=== PATIENT | female | born 1950 | race Caucasian/White ===

== ENCOUNTER 2019-07-22 16:34 | Observation (INO) | payer MEDICARE, SELFPAY ==
[~2019-07-22] VITALS: Ht 152.4 cm; Wt 51.0 kg
[2019-07-22] MEDS ORDERED: HYDR-643 PO (17:09)
[2019-07-22] MEDS ORDERED: CYCL10TA PO (17:09)
[2019-07-22] MEDS ORDERED: PROM25TA12 PO (17:09)
[2019-07-22] MEDS ORDERED: FLUT44IN INH (17:09)
[2019-07-22] MEDS ORDERED: MECL-86 PO (17:09)
[2019-07-22 17:39] LABS: HEMATOCRIT 43.7 % (36.0-47.0); HEMOGLOBIN 13.8 g/dl (12.0-15.5); MEAN CORPUSCULAR HEMOGLOBIN 27.7 pg (27.0-33.0); MEAN CORPUSCULAR HGB CONC 31.6 g/dl (32.0-36.5); MEAN CORPUSCULAR VOLUME 87.6 fl (80.0-96.0); PLATELET COUNT, AUTOMATED 199 10^3/uL (150-450); RED BLOOD COUNT 4.99 10^6/uL (4.00-5.40)
--- NOTE | 2019-07-22 18:00 | REPVR ---
PROCEDURE INFORMATION: Exam: CT Head Without Contrast Exam date and time: 07/22/2019 5:11 PM Age: 68 years old Clinical history: Altered mental status/memory loss; Confusion or disorientation; Additional info: Altered loc TECHNIQUE: Imaging protocol: Computed tomography of the head without contrast. Radiation optimization: All CT scans at this facility use at least one of these dose optimization techniques: automated exposure control; mA and/or kV adjustment per patient size (includes targeted exams where dose is matched to clinical indication); or iterative reconstruction. COMPARISON: No relevant prior studies available. FINDINGS: Brain: Pond-white differentiation appears preserved. There is a large bubble of air within the right globe and this may be secondary to previous surgery. There is no evidence of mass effect. Ventricles: The ventricles are normal in size. Bones/joints: There is no evidence of fracture. Sinuses: Clear paranasal sinuses. Mastoid air cells: Clear mastoid air cells. Soft tissues: Unremarkable. IMPRESSION: 1. Normal appearing CT scan of the brain. 2. Prominent bubble of air in the right globe which may be secondary to previous surgery. Electronically signed by: Adan Trevizo On 07/22/2019 18:00:41 PM
[2019-07-22 18:15] LABS: ACETAMINOPHEN LEVEL < 2.0 UG/ML (10.0-30.0); ALBUMIN 4.4 GM/DL (3.2-5.2); ALT/SGPT 24 U/L (12-78); BILIRUBIN,DIRECT 0.2 MG/DL (0.0-0.2); BILIRUBIN,TOTAL 0.6 MG/DL (0.2-1.0); BLOOD UREA NITROGEN 21 MG/DL (7-18); CALCIUM LEVEL 9.7 MG/DL (8.8-10.2); CARBON DIOXIDE LEVEL 20 MEQ/L (21-32); CHLORIDE LEVEL 104 MEQ/L (98-107); CREATININE FOR GFR 0.84 MG/DL (0.55-1.30); ETHYL ALCOHOL (ETHANOL) < 0.003 % (0.000-0.010); GLOMERULAR FILTRATION RATE > 60.0 (>45); GLUCOSE, FASTING 91 MG/DL (70-100); POTASSIUM SERUM 3.6 MEQ/L (3.5-5.1); SODIUM LEVEL 140 MEQ/L (136-145); TOTAL PROTEIN 8.3 GM/DL (6.4-8.2)
[2019-07-22] MEDS ORDERED: LIDOCAINE 2% 5ML JELLY UROJET TOP ONE (18:45)
[2019-07-22] MEDS ORDERED: NITROFURANTOIN (MACROBID) 100 MG CAP PO ONE (19:45)
[2019-07-22 20:03] LABS: AMPHETAMINES LEVEL URINE NEGATIVE (NEGATIVE); BARBITURATES URINE NEGATIVE (NEGATIVE); BENZODIAZEPINES URINE NEGATIVE (NEGATIVE); CANNABINOIDS URINE NEGATIVE (NEGATIVE); COCAINE METABOLITE URINE NEGATIVE (NEGATIVE); METHADONE URINE NEGATIVE (NEGATIVE); OPIATES URINE NEGATIVE (NEGATIVE); PHENCYCLIDINE URINE NEGATIVE (NEGATIVE)
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
[2019-07-23] MEDS ORDERED: ACETAMINOPHEN TAB 650MG DOSE (2X325MG) PO PRN (01:45)
[2019-07-23] MEDS ORDERED: PATIENT COMMENTS (01:54)
[2019-07-23] MEDS ORDERED: FLUT22IN INH (02:56)
[2019-07-23 03:00] VITALS: BP 154/72
[2019-07-23 05:34] VITALS: BP 164/84
[2019-07-23] MEDS: LevoFLOXacin 500 MG TABLET PO SCH ×2 (07:30→09:01)
--- NOTE | 2019-07-23 07:42 | REP ---
AP PORTABLE CHEST: 07/22/2019. CLINICAL HISTORY: Altered level of consciousness FINDINGS: No prior studies. The patient's mandible obscures the right apex and a portion of the left medial upper lung zone. Lungs are hypoinflated. Heart size not enlarged for this degree of inflation. There is some pulmonary artery hypertension. No gross infiltrate, effusion or edema. Bones are demineralized. IMPRESSION: 1. Hypoinflated chest without infiltrate, effusion or low edema. No gross cardiomegaly. 2. Right apex obscured by the patient's mandible. Bones severely demineralized. Electronically Signed by Terrence Lino MD 07/23/2019 07:49 A
[2019-07-23] MEDS ORDERED: FLUTICASONE HFA 220 MCG 12 GM INHALER (FLOVENT) INH SCH (09:00)
[2019-07-23] MEDS: ENOXAPARIN 40 MG/0.4 ML SYRINGE (J1650) SC SCH ×2 (09:00→09:01)
[2019-07-23] MEDS ORDERED: haloperidoL 5 MG TAB PO STA (11:36)
[2019-07-23] MEDS ORDERED: diphenhydrAMINE 25 MG CAP PO ONE (11:45)
[2019-07-23] MEDS ORDERED: LORazepam 1 MG TAB PO ONE (11:45)
[2019-07-23] MEDS ORDERED: HALOPERIDOL 5 MG/ML VIAL (J1630) IM PRN (12:30)
[2019-07-23] MEDS ORDERED: HALOPERIDOL 5 MG/ML VIAL (J1630) As Ordered ONE (12:31)
[2019-07-23] MEDS ORDERED: diphenhydrAMINE INJ 50MG/ML VIAL (J1200) IM PRN (13:00)
[2019-07-23] MEDS ORDERED: LORazepam 2 MG/ML VIAL (J2060) IM PRN (13:00)
--- NOTE | 2019-07-23 13:08 | MHCRPDOC ---
[facility] Consultation Consultation New Patient Betzaida Ayers MRN: N/A Date of : N/A Date of Service: 07/23/2019 Chief Complaint Consultation for bizarre behavior. History of Present Illness The patient, a 68-year-old woman with a reported history of a psychotic disorder, presents to [facility] initially admitted to medicine due to weakness. She has been noted by EMS to be walking around outside and acting bizarrely. The patient had been fairly guarded and did not answer any questions and appeared to continue to act very bizarre reporting various visual and auditory hallucinations and delusional behavior. When I attempted to meet with the patient for consultation she was in the bathroom with her head hanging down bizarrely trying to "get the poison out." She would not respond to any of my questions, continued to wander around bizarrely attempting to jump out of windows. Review Of Systems The patient unable to contribute any history due to her severe mental status problems. Past Psychiatric History Reportedly has a history of a psychiatric disorder in [place], but unclear, no records. Allergies Please see below. Family Psychiatric History No records. Patient unable to contribute. Social History The patient recently moved here from [place] recently. Patient has a daughter in the local area. Substance Abuse History Urinary tox appeared negative. Medical History Reportedly has history of asthma and seizure disorder. Mental Status Examination General: Poor hygiene Speech: Mute Thought processes: Unclear MSK: Smooth and coordinated gait, no signs of tremors or involuntary orofacial movements Thought content: Paranoid Abstract reasoning, and computation: Impaired Description of associations: Impaired Description of abnormal or psychotic thoughts: Denies any suicidal or homicidal ideation. Denies any auditory or visual hallucinations. Does not appear to be responding to internal stimuli. Does not appear to be endorsing any bizarre or paranoid ideation. Judgment: Impaired Insight: Impaired Orientation: Unclear Cognition: Appears to respond to my presence Recent and remote memory: Unclear Attention span and concentration: Impaired secondary to thought process Fund of knowledge: Adequate Mood: "poisoned" Affect: Flat with little reactivity Diagnoses Unspecified psychotic disorder. Assessment and Plan Unspecified psychotic disorder: Recommend admission 939 inpatient status. Continue on 1:1 sitter until presents to inpatient unit. Disposition Needs admission to inpatient after medically cleared. Time Spent 30 minutes. Tuesday Vital Signs Vital Signs Date Time Temp Pulse Resp B/P (MAP) Pulse Ox O2 Delivery O2 Flow Rate FiO2 07/23/19 05:34 98.0 104 16 164/84 (110) 97 Room Air Laboratory Data 24H Labs Laboratory Tests 2 07/22/19 17:28: Nucleated Red Blood Cells % (auto) 0.0, Anion Gap 16, Glomerular Filtration Rate > 60.0, Calcium Level 9.7, Total Bilirubin 0.6, Direct Bilirubin 0.2, Aspartate Amino Transf (AST/SGOT) 21, Alanine Aminotransferase (ALT/SGPT) 24, Alkaline Phosphatase 75, Total Protein 8.3H, Albumin 4.4, Albumin/Globulin Ratio 1.13, Thyroid Stimulating Hormone (TSH) 2.650, Salicylates Level 2.0L, Acetaminophen Level < 2.0L, Ethyl Alcohol Level < 0.003 07/22/19 19:18: Urine Color YELLOW, Urine Appearance HAZY, Urine pH 5.0, Urine Specific [place] 1.023, Urine Protein 1+H, Urine Glucose (UA) NEGATIVE, Urine Ketones 2+H, Urine Blood 1+H, Urine Nitrite NEGATIVE, Urine Bilirubin NEGATIVE, Urine Urobilinogen 0.2, Urine Leukocyte Esterase 1+H, Urine WBC (Auto) 17H, Urine RBC (Auto) 3, Urine Hyaline Casts (Auto) 6, Urine Bacteria (Auto) NEGATIVE, Urine Squamous Epithelial Cells 0, Urine Mucus (Auto) SMALL, Urine Sperm (Auto) , Urine Opiates Screen NEGATIVE, Urine Methadone Screen NEGATIVE, Urine Barbiturates Screen NEGATIVE, Urine Phencyclidine Screen NEGATIVE, Urine Amphetamines Screen NEGATIVE, Urine Benzodiazepines Screen NEGATIVE, Urine Cocaine Metabolite Screen NEGATIVE, Urine Cannabinoids Screen NEGATIVE 07/23/19 07:52: Vitamin B12 Level > 2000H Home Medications Current Medications Current Medications Medications (Trade) Dose Ordered Sig/Dario Route PRN Reason Start Time Stop Time Status Last Admin Dose Admin Acetaminophen (Tylenol Tab) 650 mg Q4H PRN PO PAIN OR FEVER 07/23/19 01:45 Diphenhydramine HCl (Benadryl) 25 mg Q6HP PRN IM AGITATION 07/23/19 13:00 Enoxaparin Sodium (Lovenox) 40 mg DAILY SC 07/23/19 09:00 Fluticasone Propionate (Flovent Hfa 220mcg) 2 puff BID INH 07/23/19 09:00 Haloperidol (Haldol) 5 mg Q6HP PRN IM AGITATION 07/23/19 12:30 07/23/19 12:38 Haloperidol (Haldol) 10 mg STAT STAT PO 07/23/19 11:27 07/23/19 11:28 Cancel Haloperidol (Haldol) 10 mg STAT STAT PO 07/23/19 11:36 07/23/19 11:37 DC Home Med (Med Rec Complete!) ASDIRECTED XX 07/23/19 02:00 07/23/19 01:58 DC Levofloxacin (Levaquin) 500 mg DAILY@06 PO 07/23/19 07:30 Lorazepam (Ativan) 1 mg Q4HP PRN IM AGITATION 07/23/19 13:00 Scheduled PRN Cyclobenzaprine HCl (Cyclobenzaprine HCl) 10 Mg Tablet, 10 MG PO Q8H PRN for PAIN, (Reported) Fluticasone Propionate (Flovent Hfa) 220 Mcg/Act Aer.w.adap, 2 PUFF INH BID PRN for SOB/WHEEZING, (Reported) Hydroxyzine HCl (Hydroxyzine HCl) 10 Mg Tablet, 10 MG PO TID PRN for ANXIETY, (Reported) Meclizine HCl (Meclizine HCl) 25 Mg Tablet, 25 MG PO TID PRN for dizziness, (Reported) Promethazine HCl (Promethazine HCl) 25 Mg Tablet, 25 MG PO Q6H PRN for nausea/vomiting, (Reported) Miscellaneous Medications [Patient Comments] , (Reported) PATIENT IS AWAKE BUT NOT RESPONDING TO QUESTIONS. UNABLE TO OBTAIN ANY INFORMATION ON MEDICATION HISTORY Allergies Coded Allergies: Unobtainable (Unverified , 07/22/19) pt unable to answer MIKE DE LA FUENTE DO Jul 23, 2019 13:08
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
== END 2019-07-23 16:10 ==
LOC: EDBD 16:34 → M ED 16:34 → M ED INP 16:35 → M MS5PR 07-23 02:40
PROVIDERS: ADMIT Internal Medicine; ATTEND Internal Medicine
DX: G93.41 Metabolic encephalopathy (principal); F29 Unspecified psychosis not due to a substance or known physiological condition; R44.1 Visual hallucinations; R44.0 Auditory hallucinations; J45.909 Unspecified asthma, uncomplicated; N39.0 Urinary tract infection, site not specified; Z79.899 Other long term (current) drug therapy

== ENCOUNTER 2019-07-23 14:09 | Inpatient (IN) | payer MEDICARE, OTHER ==
[~2019-07-23 14:09] MED LIST: CYCL10TA PO; FLUT22IN INH; FLUT44IN INH; HYDR-643 PO; MECL-86 PO; PATIENT COMMENTS; PROM25TA12 PO
[2019-07-23] MEDS ORDERED: OLANZapine 5 MG TAB PO PRN (16:30)
[2019-07-23] MEDS ORDERED: MOM 30ML SUSPENSION UDC PO PRN (16:30)
[2019-07-23] MEDS ORDERED: MAALOX 30 ML SUSP *UDC PO PRN (16:30)
[2019-07-23] MEDS ORDERED: traZODone 50 MG TAB PO PRN (16:30)
[2019-07-24 06:32] VITALS: BP 133/68
[2019-07-24] MEDS ORDERED: hydrOXYzine 10 MG TAB PO PRN (11:00)
[2019-07-24] MEDS: IBUPROFEN 400 MG TAB PO PRN (11:12)
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
[2019-07-24] MEDS: MECLIZINE 25 MG TABLET PO PRN ×2 (11:22→20:38)
--- NOTE | 2019-07-24 13:34 | HPEPDOC ---
General Date of Admission Jul 23, 2019 at 16:25 Date of Service: Jul 24, 2019 Attending Physician: LEEANN SMITH MD Chief Complaint The patient is a 68-year-old female admitted with a reason for visit of Psychotic Disorder. Source: Patient, RN/MD Exam Limitations: No limitations Associated Symptoms: Denies Symptoms History of Present Illness Patient is a 68 year old female admitted to the [facility] with a Diagnosis of Psychotic Disorder. She is being assessed by the hospitalist group for any medical comorbidities. Ms. Ayers is a poor historian and much of her medical history is obtained from nursing staff and her chart. Patient is very suspicious of me during examination. Patient was recently moved to [place] as her daughter is stationed at [place]. Daughter noted the patient's mental status was deteriorating - she had become paranoid, responding to external stimuli and obsessed with religious. Her daughter had previously reported a change in her medications; patient reported she no longer takes Olanzapine; she is willing to start Risperdal instead. Nursing staff were in the process of obtaining previous medical records from PCP in [place]. Home Medications Scheduled PRN Cyclobenzaprine HCl (Cyclobenzaprine HCl) 10 Mg Tablet, 10 MG PO Q8H PRN for PAIN, (Reported) Fluticasone Propionate (Flovent Hfa) 220 Mcg/Act Aer.w.adap, 2 PUFF INH BID PRN for SOB/WHEEZING, (Reported) Hydroxyzine HCl (Hydroxyzine HCl) 10 Mg Tablet, 10 MG PO TID PRN for ANXIETY, (R eported) Meclizine HCl (Meclizine HCl) 25 Mg Tablet, 25 MG PO TID PRN for dizziness, (Reported) Promethazine HCl (Promethazine HCl) 25 Mg Tablet, 25 MG PO Q6H PRN for nausea/vomiting, (Reported) Miscellaneous Medications [Patient Comments] , (Reported) PATIENT IS AWAKE BUT NOT RESPONDING TO QUESTIONS. UNABLE TO OBTAIN ANY INFORMATION ON MEDICATION HISTORY Allergies Coded Allergies: Unobtainable (Unverified , 07/22/19) pt unable to answer Past Medical History Medical History Paranoid Schizophrenia Chronic UTI COPD Family History no response Social History * Smoker: Denies Alcohol: other (no response ) Drugs: other (no response ) A-FIB/CHADSVASC A-FIB History Current/History of A-Fib/PAF?: No Review of Systems Constitutional: Denies: Chills, Fever, Night Sweats Eyes: Denies: Pain, Vision change ENT: Denies: Head Aches, Dysphagia Skin: Denies: Rash Pulmonary: Denies: Dyspnea, Cough Cardiovascular: Denies: Chest Pain, Palpitations, Lt Headedness Gastrointestinal: Denies: Nausea, Vomiting, Abdominal Pain Genitourinary: Denies: Dysuria Hematologic: Denies: Bruising Musculoskeletal: Denies: Neck Pain, Back Pain, Shoulder Pain, Arm Pain, Hand Pain, Leg Pain, Foot Pain, Joint Pain, Muscle Pain, Spasms, Other Symptoms Neurological: Denies: Weakness, Confusion Physical Examination General Exam: Positive: No Acute Distress, Other (Appears thin and frail ) Eye Exam: Positive: Conjunctiva & lids normal ENT Exam: Positive: Atraumatic Chest Exam: Positive: Clear to auscultation, Normal air movement Heart Exam: Positive: Rate Normal, Normal S1, Normal S2 Abdomen Exam: Positive: Other (Declined exam ) Extremity Exam: Positive: Normal pulses; Negative: Clubbing, Cyanosis, Edema Skin Exam: Positive: Rash Neuro Exam: Positive: Normal Speech Psych Exam: Positive: Other (Appears anxious and afraid.) Vital Signs Vital Signs Date Time Temp Pulse Resp B/P (MAP) Pulse Ox O2 Delivery O2 Flow Rate FiO2 07/24/19 06:32 98.5 100 16 133/68 (89) Assessment/Plan Patient is a 68 year old female admitted to the [facility] with a Diagnosis of Psychotic Disorder. She is being assessed by the hospitalist group for any medical comorbidities. As Ms. Ayers is a poor historian, much of her history is obtained from nursing staff and her chart. Continue to monitor clinically. Management per psychiatry. COPD Check and verify home inhalers and nebulizer and dosing. Resume home treatment DEL Elevated B12 levels Per nursing: Patient agreed when asked that she has been taking OTC multi- vitamins. As patient has no overtly concerning medical symptoms, continue to monitor clinically. Re-assess once patient has been stabilized with medications and counseling. Plan / VTE VTE Prophylaxis Ordered?: No ATTENDING NOTE I have personally performed a face to face diagnostic evaluation on this patient. I have reviewed and agree with the care plan. ALEXX VALLEJO PA-C Jul 24, 2019 13:34 LEEANN SMITH MD Jul 24, 2019 19:20
[2019-07-24] MEDS: FLUTICASONE HFA 220 MCG 12 GM INHALER (FLOVENT) INH SCH ×2 (13:39→20:32)
[2019-07-24 16:28] VITALS: BP 120/71
[2019-07-24] MEDS: ALBUTEROL SULFATE 2.5 MG/0.5 ML INH NEB SOLN NEB SCH (19:35)
[2019-07-24] MEDS ORDERED: risperiDONE 2 MG TAB PO SCH (21:00)
[2019-07-25] MEDS: ALBUTEROL SULFATE 2.5 MG/0.5 ML INH NEB SOLN NEB SCH ×4 (02:00→20:00)
[2019-07-25] MEDS: MECLIZINE 25 MG TABLET PO PRN ×2 (06:20→16:27)
[2019-07-25 06:22] VITALS: BP 130/70
[2019-07-25] MEDS: FLUTICASONE HFA 220 MCG 12 GM INHALER (FLOVENT) INH SCH ×2 (08:43→20:04)
[2019-07-25] MEDS: SENNA 8.6 MG TAB (SENOKOT) PO PRN (08:43)
--- NOTE | 2019-07-25 10:13 | MHIPNPDOC ---
[facility] Progress Note Progress Note DATE OF SERVICE: 07/25/19 HISTORY: Patient is a 68 -year-old , female, with a presumed history of Schizophrenia and several past psych admissions in [place] who was seen by Dr. Kayli webster regarding consult on medical floor after pt was brought to the hospital due to being found talking to the wall in her apartment lobby, paranoid, and talking of confucianism things. Pt's daughter, who pt lives with reported pt is not at her baseline and had a recent med change outpatient but does not know what medication pt is currently taking. Per ED, asked interviewer if they were aware of the poison and that they shouldn't talk about it. Pt also stated in ED that her daughter was here on the cold floor and that she could not remember where she lived then stopped talking and cooperative with interview. Pt seen with 1:1 sitter present due to being blind in her room sitting in a chair with a blanket over her head appearing irritated and anxious stating "my daughter keeps putting me in hospitals for no reason." She is very disorganized and tangential. She is a very poor historian. Denies knowing why she here. Talks and refers to hospitals in [place] where she moved from like she still lives there then about [place] and states she lives here now. States she wants to go home. States she doesn't know if she likes risperdal or vistaril and had been taking one of them and not the other, most likely vistaril she was taking consider she is psychotic now most likely due to med noncompliance. Pt rambles on from one topic to the next with pressured speech making her very difficult to understand. Pt is a very poor historian and history gathered from previous hospital records. VITAL SIGNS: See below. NEW TEST RESULTS: See below. CURRENT MEDICATIONS: See below. MENTAL STATUS EXAMINATION: General Appearance: unkempt, disheveled, appears stated age, hospital scubs/clothing (blanket over her head sitting in a chair) Build: average Demeanor: preoccupied, guarded Eye Contact: poor Activity: anxious Behavior: uncooperative, other (confused and disorganzied) Speech: pressured, spontaneous, normal volume Mood: depressed, anxious, irritable Mood "My daughter keeps putting me in the hospital for no reason." Affect: constricted, inappropriate, labile, anxious, disorganized Thought Process: tangential, loose, associative, flight of ideas Thought Content (Delusions): paranoia, delusions, other (Denies SI/HI, experiencing AH and VH, responding to internal stimuli, talking to people not present and objects) Thought Content (Other): preoccupied, obsessional, ideas of reference, internal-stimuli, appears paranoid Thought Content (Aggressive): none reported Perception (Hallucinations): auditory, visual Perception (Other): none reported Cognition (Impairment of): attention/concentration, ability to abstract Cognition(Intelligence Est.): average Oriented: Awake, Alert, Oriented times three Insight: poor Judgment: Poor Psychosis: Associations, Abstract Thinking, Psychotic Perceptions DIAGNOSES: Paranoid Schizophrenia ASSESSMENT:Pt seen in her room with sitter present sitting in a chair with a blanket over her head. Asked if she took her medications last night and states "I took vistaril and it helped me sleep" Asked if she took her risperdal and stated "No... I'm not taking that... you want to make me sleepy... No... Don't make me take it". She continues to appear paranoid especially of risperidone, isolative, poor memory (does know what hospital she in or remember who I am), responding to internal stimuli, and uncooperative with interview. Denies SI/HI. Will change risperidone to invega as it appears she mostly paranoid towards risperidone and may be more willing to take a different antipsychotic with a different name but similar to risperidone in effects and benefits. MANAGEMENT PLAN: . Medications: invega 3mg qhs vistaril 10mg q4hr prn anxiety zyprexa 10mg q4hr prn agitation TIME SPENT: 30 minutes. Vital Signs Vital Signs Date Time Temp Pulse Resp B/P (MAP) Pulse Ox O2 Delivery O2 Flow Rate FiO2 07/25/19 06:22 98.6 90 18 130/70 (90) Current Medications Current Medications Medications (Trade) Dose Ordered Sig/Dario Route PRN Reason Start Time Stop Time Status Last Admin Dose Admin Al Hydrox/Mg Hydrox/Simethicone (Mylanta) 30 ml Q4HP PRN PO HEARTBURN/INDIGESTION 07/23/19 16:30 Albuterol Sulfate (Proventil Neb) 2.5 mg RQ6H NEB 07/24/19 20:00 07/25/19 07:49 Cyclobenzaprine HCl (Flexeril) 10 mg Q8HP PRN PO discomfort 07/24/19 11:00 Fluticasone Propionate (Flovent Hfa 220mcg) 2 puff BID INH 07/24/19 09:00 07/25/19 08:43 Hydroxyzine HCl (Atarax) 10 mg TIDP PRN PO ANXIETY/AGITATION 07/24/19 11:00 07/24/19 20:35 Ibuprofen (Advil) 400 mg Q6HP PRN PO PAIN 07/23/19 16:30 07/24/19 11:12 Magnesium Hydroxide (Milk Of Magnesia) 30 ml DAILYPRN PRN PO CONSTIPATION 07/23/19 16:30 Meclizine HCl (Antivert) 25 mg TIDP PRN PO DIZZINESS 07/24/19 11:00 07/25/19 06:20 Olanzapine (ZyPREXA) 5 mg Q4HP PRN PO AGITATION 07/23/19 16:30 Risperidone (RisperDAL) 4 mg QHS PO 07/24/19 21:00 Senna (Senokot) 1 tab QHS PRN PO CONSTIPATION 07/24/19 11:00 07/25/19 08:43 Trazodone HCl (Desyrel) 50 mg QHSP PRN PO INSOMNIA 07/23/19 16:30 Allergies Coded Allergies: Unobtainable (Unverified , 07/22/19) pt unable to answer ARANZA FUNEZ DO Jul 25, 2019 10:13 am
[2019-07-25] MEDS: CYCLOBENZAPRINE 10 MG TAB PO PRN (13:34)
[2019-07-25 16:14] VITALS: BP 135/77
[2019-07-25] MEDS: PALIPERIDONE 3 MG ER TAB (INVEGA) PO SCH (20:04)
[2019-07-26] MEDS: ALBUTEROL SULFATE 2.5 MG/0.5 ML INH NEB SOLN NEB SCH ×5 (01:22→22:14)
[2019-07-26 06:41] VITALS: BP 107/64
[2019-07-26] MEDS: FLUTICASONE HFA 220 MCG 12 GM INHALER (FLOVENT) INH SCH ×2 (08:06→20:30)
[2019-07-26] MEDS: MECLIZINE 25 MG TABLET PO PRN (08:08)
--- NOTE | 2019-07-26 09:13 | MHIPNPDOC ---
[facility] Progress Note Progress Note DATE OF SERVICE: 07/26/19 HISTORY: Patient is a 68 -year-old , female, with a presumed history of Schizophrenia and several past psych admissions in [place] who was seen by Dr. Kayli webster regarding consult on medical floor after pt was brought to the hospital due to being found talking to the wall in her apartment lobby, paranoid, and talking of oriental orthodox things. Pt's daughter, who pt lives with reported pt is not at her baseline and had a recent med change outpatient but does not know what medication pt is currently taking. Per ED, asked interviewer if they were aware of the poison and that they shouldn't talk about it. Pt also stated in ED that her daughter was here on the cold floor and that she could not remember where she lived then stopped talking and cooperative with interview. Pt seen with 1:1 sitter present due to being blind in her room sitting in a chair with a blanket over her head appearing irritated and anxious stating "my daughter keeps putting me in hospitals for no reason." She is very disorganized and tangential. She is a very poor historian. Denies knowing why she here. Talks and refers to hospitals in [place] where she moved from like she still lives there then about [place] and states she lives here now. States she wants to go home. States she doesn't know if she likes risperdal or vistaril and had been taking one of them and not the other, most likely vistaril she was taking consider she is psychotic now most likely due to med noncompliance. Pt rambles on from one topic to the next with pressured speech making her very difficult to understand. Pt is a very poor historian and history gathered from previous hospital records. VITAL SIGNS: See below. NEW TEST RESULTS: See below. CURRENT MEDICATIONS: See below. MENTAL STATUS EXAMINATION: General Appearance: unkempt, appears stated age, hospital scubs/clothing (sitting in a chair) Build: average Demeanor: preoccupied, guarded Eye Contact: poor Activity: anxious Behavior: uncooperative, other (easily frustrated by questions during interview and less disorganized) Speech: reg rate, spontaneous, normal volume Mood: monothymic, anxious, irritable, easily frustrated by questions during interview Mood "My daughter lies." Affect: constricted, inappropriate, labile, anxious, less disorganized Thought Process: tangential, loose, associative, flight of ideas, religiosity Thought Content (Delusions): paranoia, delusions, other (Denies SI/HI, exper iencing AH and VH, responding to internal stimuli, talking to people not present and objects) Thought Content (Other): preoccupied, obsessional, ideas of reference, internal-stimuli, appears paranoid, religiosity Thought Content (Aggressive): none reported Perception (Hallucinations): auditory, visual Perception (Other): none reported Cognition (Impairment of): attention/concentration, ability to abstract Cognition(Intelligence Est.): average Oriented: Awake, Alert, Oriented times three Insight: poor Judgment: Poor Psychosis: Associations, Abstract Thinking, Psychotic Perceptions DIAGNOSES: Paranoid Schizophrenia ASSESSMENT:Pt seen in her room with sitter present sitting in a chair. States she took her invega last night and this morning her legs feel "wobbly" and "you better decrease the dose... what do you want for me to not be able to walk." She is more oriented to time, place, and who I am today. States "my daughter lies and told me I'm here b/c I was trying to scratch at someone's face and was calling them Satan... I don't lie... I couldn't do anything like that." Asked her what I could do to help her further and stated "believe in God." Pt easily frustrated by questions during interview and yelled at me for asking too many and said she done talking so interview completed. She continues to appear paranoid especially of medications, isolative, responding to internal stimuli, and uncooperative with interview. Denies SI/HI. Will monitor pt tolerance on invega 3mg qhs as dose can not be cut in half and it appears to be beneficial for psychosis. Pt tolerance to med should improve with continued use to no longer experiencing any side effects. Complaint of side effects could very likely be related to somatic paranoid delusions regarding any antipsychotic medication. MANAGEMENT PLAN: . Medications: invega 3mg qhs vistaril 10mg q4hr prn anxiety zyprexa 10mg q4hr prn agitation TIME SPENT: 30 minutes. Vital Signs Vital Signs Date Time Temp Pulse Resp B/P (MAP) Pulse Ox O2 Delivery O2 Flow Rate FiO2 07/26/19 06:41 99.3 107 16 107/64 (78) Laboratory Data 24H Labs Laboratory Tests 2 07/25/19 11:00: Urine Color YELLOW, Urine Appearance CLEAR, Urine pH 6.0, Urine Specific [place] 1.010, Urine Protein NEGATIVE, Urine Glucose (UA) NEGATIVE, Urine Ketones TRACEH, Urine Blood 1+H, Urine Nitrite NEGATIVE, Urine Bilirubin NEGATIVE, Urine Urobilinogen 0.2, Urine Leukocyte Esterase NEGATIVE, Urine WBC (Auto) 1, Urine RBC (Auto) 0, Urine Hyaline Casts (Auto) 0, Urine Bacteria (Auto) NEGATIVE, Urine Squamous Epithelial Cells 0, Urine Sperm (Auto) Current Medications Current Medications Medications (Trade) Dose Ordered Sig/Dario Route PRN Reason Start Time Stop Time Status Last Admin Dose Admin Al Hydrox/Mg Hydrox/Simethicone (Mylanta) 30 ml Q4HP PRN PO HEARTBURN/INDIGESTION 07/23/19 16:30 Albuterol Sulfate (Proventil Neb) 2.5 mg RQ6H NEB 07/24/19 20:00 07/26/19 07:55 Cyclobenzaprine HCl (Flexeril) 10 mg Q8HP PRN PO discomfort 07/24/19 11:00 07/25/19 13:34 Fluticasone Propionate (Flovent Hfa 220mcg) 2 puff BID INH 07/24/19 09:00 07/26/19 08:06 Hydroxyzine HCl (Atarax) 10 mg TIDP PRN PO ANXIETY/AGITATION 07/24/19 11:00 07/24/19 20:35 Ibuprofen (Advil) 400 mg Q6HP PRN PO PAIN 07/23/19 16:30 07/24/19 11:12 Magnesium Hydroxide (Milk Of Magnesia) 30 ml DAILYPRN PRN PO CONSTIPATION 07/23/19 16:30 Meclizine HCl (Antivert) 25 mg TIDP PRN PO DIZZINESS 07/24/19 11:00 07/26/19 08:08 Olanzapine (ZyPREXA) 5 mg Q4HP PRN PO AGITATION 07/23/19 16:30 Paliperidone (Invega) 3 mg QHS PO 07/25/19 21:00 07/25/19 20:04 Risperidone (RisperDAL) 4 mg QHS PO 07/24/19 21:00 07/25/19 10:13 DC Senna (Senokot) 1 tab QHS PRN PO CONSTIPATION 07/24/19 11:00 07/25/19 08:43 Trazodone HCl (Desyrel) 50 mg QHSP PRN PO INSOMNIA 07/23/19 16:30 Allergies Coded Allergies: Unobtainable (Unverified , 07/22/19) pt unable to answer ARANZA FUNEZ DO Jul 26, 2019 9:13 am
[2019-07-26] MEDS: IBUPROFEN 400 MG TAB PO PRN ×2 (10:47→20:30)
[2019-07-26 11:42] LABS: BASO % 0.4 % (0.0-1.0); EOS % 1.5 % (0.0-3.0); HEMATOCRIT 40.3 % (36.0-47.0); HEMOGLOBIN 12.8 g/dl (12.0-15.5); LYMPH # 1.3 10^3/uL (1.5-5.0); LYMPH % 47.7 % (24.0-44.0); MEAN CORPUSCULAR HEMOGLOBIN 27.8 pg (27.0-33.0); MEAN CORPUSCULAR HGB CONC 31.8 g/dl (32.0-36.5); MEAN CORPUSCULAR VOLUME 87.4 fl (80.0-96.0); MONO # 0.3 10^3/uL (0.0-0.8); MONO % 9.8 % (0.0-5.0); NEUTROPHILS # 1.1 10^3/uL (1.5-8.5); NEUTROPHILS % 40.6 % (36.0-66.0); PLATELET COUNT, AUTOMATED 152 10^3/uL (150-450); RED BLOOD COUNT 4.61 10^6/uL (4.00-5.40); WHITE BLOOD COUNT 2.7 10^3/uL (4.0-10.0)
[2019-07-26 12:27] LABS: ALT/SGPT 17 U/L (12-78); BLOOD UREA NITROGEN 13 MG/DL (7-18); CALCIUM LEVEL 9.3 MG/DL (8.8-10.2); CARBON DIOXIDE LEVEL 31 MEQ/L (21-32); CHLORIDE LEVEL 103 MEQ/L (98-107); GLOMERULAR FILTRATION RATE > 60.0 (>45); GLUCOSE, FASTING 94 MG/DL (70-100); SODIUM LEVEL 142 MEQ/L (136-145)
[2019-07-26 12:28] LABS: ALBUMIN 3.6 GM/DL (3.2-5.2); BILIRUBIN,TOTAL 0.4 MG/DL (0.2-1.0); TOTAL PROTEIN 7.1 GM/DL (6.4-8.2)
[2019-07-26 16:26] VITALS: BP 107/57
[2019-07-26] MEDS: PALIPERIDONE 3 MG ER TAB (INVEGA) PO SCH (20:30)
[2019-07-27 06:30] VITALS: BP 115/69
[2019-07-27] MEDS: ALBUTEROL SULFATE 2.5 MG/0.5 ML INH NEB SOLN NEB SCH ×3 (07:51→20:00)
[2019-07-27] MEDS: IBUPROFEN 400 MG TAB PO PRN (08:22)
[2019-07-27] MEDS: MECLIZINE 25 MG TABLET PO PRN ×3 (08:23→22:33)
[2019-07-27] MEDS: FLUTICASONE HFA 220 MCG 12 GM INHALER (FLOVENT) INH SCH ×2 (08:23→20:41)
[2019-07-27] MEDS: SENNA 8.6 MG TAB (SENOKOT) PO PRN (08:23)
--- NOTE | 2019-07-27 10:27 | MHIPNPDOC ---
[facility] Progress Note Progress Note DATE OF SERVICE: 07/27/19 HISTORY: Patient is a 68 -year-old , female, with a presumed history of Schizophrenia and several past psych admissions in [place] who was seen by Dr. Membreno regarding consult on medical floor after pt was brought to the hospital due to being found talking to the wall in her apartment lobby, paranoid, and talking of mu-ism things. Pt's daughter, who pt lives with reported pt is not at her baseline and had a recent med change outpatient but does not know what medication pt is currently taking. Per ED, asked interviewer if they were aware of the poison and that they shouldn't talk about it. Pt also stated in ED that her daughter was here on the cold floor and that she could not remember where she lived then stopped talking and cooperative with interview. Pt seen with 1:1 sitter present due to being blind in her room sitting in a chair with a blanket over her head appearing irritated and anxious stating "my daughter keeps putting me in hospitals for no reason." She is very disorganized and tangential. She is a very poor historian. Denies knowing why she here. Talks and refers to hospitals in [place] where she moved from like she still lives there then about [place] and states she lives here now. States she wants to go home. States she doesn't know if she likes risperdal or vistaril and had been taking one of them and not the other, most likely vistaril she was taking consider she is psychotic now most likely due to med noncompliance. Pt rambles on from one topic to the next with pressured speech making her very difficult to understand. Pt is a very poor historian and history gathered from previous hospital records. VITAL SIGNS: See below. NEW TEST RESULTS: See below. CURRENT MEDICATIONS: See below. MENTAL STATUS EXAMINATION: General Appearance: unkempt, appears stated age, hospital scubs/clothing (sitting in a chair) Build: average Demeanor: preoccupied, guarded Eye Contact: poor Activity: anxious Behavior: a little more cooperative, other (easily frustrated by questions during interview and less disorganized) Speech: reg rate, spontaneous, normal volume Mood: monothymic, anxious, irritable, easily frustrated by questions during interview Mood "I don't want to be doped up... everyone here is doped up." Affect: constricted, inappropriate, labile, anxious, less disorganized Thought Process: tangential, loose, associative, flight of ideas, religiosity Thought Content (Delusions): paranoia regarding people steeling her money and antipsychotic medications, delusions, other (Denies SI/HI, experiencing AH and VH, responding to internal stimuli, talking to people not present and objects) Thought Content (Other): preoccupied, obsessional, ideas of reference, internal-stimuli, appears paranoid, religiosity Thought Content (Aggressive): none reported Perception (Hallucinations): auditory, visual Perception (Other): none reported Cognition (Impairment of): attention/concentration, ability to abstract Cognition(Intelligence Est.): average Oriented: Awake, Alert, Oriented times three Insight: poor Judgment: Poor Psychosis: Associations, Abstract Thinking, Psychotic Perceptions DIAGNOSES: Paranoid Schizophrenia ASSESSMENT:Pt refused her invega last night. Pt seen in milieu with sitter present sitting. States she not taking invega b/c it's "dope" and that all the pt's are doped up here. Asked if she'd take haldol which she states she's never heard of before, will take only if it's the smallest dose "you better make it small," concerned about feeling "doped on it" and sleepy told unlikely. Told me "ibuprofen is helping me... it helps my thoughts, makes me feel calm, and takes away my pain." Asked her about her thoughts and came up close to quietly telling me about people on the unit wanting to "dope" her up except her sitter b/c her sitter is nice. Paranoid that people are taking money from her [employer] account and told will help her to get on the phone with [employer] as she i s blind and can't do it online to put her bank card account on hold so no one can take money from which she is happy about. She is more oriented to time, place, and who I am today. Pt easily frustrated by questions during interview and yelled at me for asking too many and said she done talking so interview completed. She continues to appear paranoid especially of medications, isolative, responding to internal stimuli, paranoid delusions regarding people steeling her money and antipsychotic medication. She is a little more cooperative with interview. Denies SI/HI. Will change invega to haldol as pt refusing invega due to previous feeling of "wobbly legs" in the morning after taking it for first time 07/25/19 evening. Complaint of side effects could very likely be related to somatic paranoid delusions regarding any antipsychotic medication. MANAGEMENT PLAN: . Medications: haldol 5mg qhs vistaril 10mg q4hr prn anxiety zyprexa 10mg q4hr prn agitation TIME SPENT: 30 minutes. Vital Signs Vital Signs Date Time Temp Pulse Resp B/P (MAP) Pulse Ox O2 Delivery O2 Flow Rate FiO2 07/27/19 06:30 98.4 83 16 115/69 (84) Laboratory Data 24H Labs Laboratory Tests 2 07/26/19 11:00: Immature Granulocyte % (Auto) 0.0, Neutrophils (%) (Auto) 40.6, Lymphocytes (%) (Auto) 47.7H, Monocytes (%) (Auto) 9.8H, Eosinophils (%) (Auto) 1.5, Basophils (%) (Auto) 0.4, Neutrophils # (Auto) 1.1L, Lymphocytes # (Auto) 1.3L, Monocytes # (Auto) 0.3, Eosinophils # (Auto) 0.0, Basophils # (Auto) 0.0, Nucleated Red Blood Cells % (auto) 0.0, Anion Gap 8, Glomerular Filtration Rate > 60.0, C alcium Level 9.3, Total Bilirubin 0.4, Aspartate Amino Transf (AST/SGOT) 13, Alanine Aminotransferase (ALT/SGPT) 17, Alkaline Phosphatase 70, Total Protein 7.1, Albumin 3.6, Albumin/Globulin Ratio 1.03 CBC/BMP Laboratory Tests 07/26/19 11:00 Current Medications Current Medications Medications (Trade) Dose Ordered Sig/Dario Route PRN Reason Start Time Stop Time Status Last Admin Dose Admin Al Hydrox/Mg Hydrox/Simethicone (Mylanta) 30 ml Q4HP PRN PO HEARTBURN/INDIGESTION 07/23/19 16:30 Albuterol Sulfate (Proventil Neb) 2.5 mg RQ6H NEB 07/24/19 20:00 07/27/19 07:51 Cyclobenzaprine HCl (Flexeril) 10 mg Q8HP PRN PO discomfort 07/24/19 11:00 07/25/19 13:34 Fluticasone Propionate (Flovent Hfa 220mcg) 2 puff BID INH 07/24/19 09:00 07/27/19 08:23 Hydroxyzine HCl (Atarax) 10 mg TIDP PRN PO ANXIETY/AGITATION 07/24/19 11:00 07/24/19 20:35 Ibuprofen (Advil) 400 mg Q6HP PRN PO PAIN 07/23/19 16:30 07/27/19 08:22 Magnesium Hydroxide (Milk Of Magnesia) 30 ml DAILYPRN PRN PO CONSTIPATION 07/23/19 16:30 Meclizine HCl (Antivert) 25 mg TIDP PRN PO DIZZINESS 07/24/19 11:00 07/27/19 08:23 Olanzapine (ZyPREXA) 5 mg Q4HP PRN PO AGITATION 07/23/19 16:30 Paliperidone (Invega) 3 mg QHS PO 07/25/19 21:00 07/25/19 20:04 Risperidone (RisperDAL) 4 mg QHS PO 07/24/19 21:00 07/25/19 10:13 DC Senna (Senokot) 1 tab QHS PRN PO CONSTIPATION 07/24/19 11:00 07/27/19 08:23 Trazodone HCl (Desyrel) 50 mg QHSP PRN PO INSOMNIA 07/23/19 16:30 Allergies Coded Allergies: Unobtainable (Unverified , 07/22/19) pt unable to answer ARANZA FUNEZ DO Jul 27, 2019 9:21 am
[2019-07-27 16:27] VITALS: BP 124/67
[2019-07-27] MEDS: PALIPERIDONE 3 MG ER TAB (INVEGA) PO SCH (21:14)
[2019-07-28] MEDS: IBUPROFEN 400 MG TAB PO PRN ×2 (00:24→13:39)
[2019-07-28] MEDS: ALBUTEROL SULFATE 2.5 MG/0.5 ML INH NEB SOLN NEB SCH ×4 (02:00→20:00)
[2019-07-28] MEDS: SENNA 8.6 MG TAB (SENOKOT) PO PRN (08:34)
[2019-07-28] MEDS: FLUTICASONE HFA 220 MCG 12 GM INHALER (FLOVENT) INH SCH ×2 (08:34→21:20)
[2019-07-28] MEDS: MECLIZINE 25 MG TABLET PO PRN ×2 (08:34→16:56)
[2019-07-28 16:04] VITALS: BP 104/61
[2019-07-28] MEDS ORDERED: diphenhydrAMINE 25 MG CAP PO PRN (20:00)
[2019-07-28] MEDS: haloperidoL 5 MG TAB PO SCH (21:20)
[2019-07-29] MEDS: ALBUTEROL SULFATE 2.5 MG/0.5 ML INH NEB SOLN NEB SCH ×5 (04:00→20:00)
[2019-07-29 06:16] VITALS: BP 106/62
[2019-07-29] MEDS: MECLIZINE 25 MG TABLET PO PRN ×2 (08:08→16:26)
[2019-07-29] MEDS: IBUPROFEN 400 MG TAB PO PRN ×2 (08:38→20:42)
[2019-07-29] MEDS: FLUTICASONE HFA 220 MCG 12 GM INHALER (FLOVENT) INH SCH ×2 (08:56→20:17)
[2019-07-29] MEDS: POLYVINYL ALCOHOL OPHTH SOLN 15 ML(LIQUITEARS) OU PRN (15:15)
[2019-07-29] MEDS: SENNA 8.6 MG TAB (SENOKOT) PO PRN (15:33)
[2019-07-29 16:00] VITALS: BP 110/58
[2019-07-29] MEDS: haloperidoL 5 MG TAB PO SCH (20:19)
[2019-07-30] MEDS: MECLIZINE 25 MG TABLET PO PRN ×3 (00:32→16:42)
[2019-07-30] MEDS: ALBUTEROL SULFATE 2.5 MG/0.5 ML INH NEB SOLN NEB SCH ×4 (02:00→20:00)
[2019-07-30 06:16] VITALS: BP 116/53
[2019-07-30] MEDS: FLUTICASONE HFA 220 MCG 12 GM INHALER (FLOVENT) INH SCH ×2 (08:38→20:07)
--- NOTE | 2019-07-30 10:35 | MHIPNPDOC ---
[facility] Progress Note Progress Note DATE OF SERVICE: 07/30/19 HISTORY:Patient is a 68 -year-old , female, with a presumed history of Schizophrenia and several past psych admissions in [place] who was seen by Dr. Mk saldivar regarding consult on medical floor after pt was brought to the hospital due to being found talking to the wall in her apartment lobby, paranoid, and talking of faith things. Pt's daughter, who pt lives with reported pt is not at her baseline and had a recent med change outpatient but does not know what medication pt is currently taking. Per ED, asked interviewer if they were aware of the poison and that they shouldn't talk about it. Pt also stated in ED that her daughter was here on the cold floor and that she could not remember where she lived then stopped talking and cooperative with interview. Pt seen with 1:1 sitter present due to being blind in her room sitting in a chair with a blanket over her head appearing irritated and anxious stating "my daughter keeps putting me in hospitals for no reason." She is very disorganized and tangential. She is a very poor historian. Denies knowing why she here. Talks and refers to hospitals in [place] where she moved from like she still lives there then about [place] and states she lives here now. States she wants to go home. States she doesn't know if she likes risperdal or vistaril and had been taking one of them and not the other, most likely vistaril she was taking consider she is psychotic now most likely due to med noncompliance. Pt rambles on from one topic to the next with pressured speech making her very difficult to understand. Pt is a very poor historian and history gathered from previous hospital records. VITAL SIGNS: See below. NEW TEST RESULTS: See below. CURRENT MEDICATIONS: See below. MENTAL STATUS EXAMINATION: General Appearance: unkempt, appears stated age, hospital scrubs/clothing Build: average Demeanor: uncooperative, irritable Eye Contact: poor Activity: anxious Behavior: uncooperative, other (easily frustrated by questions during interview and less disorganized) Speech: reg rate, spontaneous, normal volume Mood: anxious, irritable, easily frustrated by questions during interview Mood "You're not helping me!." Affect: constricted, inappropriate, labile, anxious, less disorganized Thought Process: tangential, loose, associative, flight of ideas, religiosity Thought Content (Delusions): paranoia regarding antipsychotic medications, somatic delusions related to taking medications (this time BENAVIDES b/c she took haldol over the weekend even though stated "I get headaches", other (Denies SI/HI, experiencing AH and VH, responding to internal stimuli, "talking God in the bathroom.") Thought Content (Other): preoccupied, obsessional, ideas of reference, internal-stimuli, appears paranoid, religiosity Thought Content (Aggressive): none reported Perception (Hallucinations): auditory, visual Perception (Other): none reported Cognition (Impairment of): attention/concentration, ability to abstract Cognition(Intelligence Est.): average Oriented: Awake, Alert, Oriented times three Insight: poor Judgment: Poor Psychosis: Associations, Abstract Thinking, Psychotic Perceptions DIAGNOSES: Paranoid Schizophrenia ASSESSMENT:Pt refused her haldol last night, states it gave her a headache when she took it even though she stated "I get headaches" which she takes ibuprofen for already. Pt seen in office with sitter present sitting. Told me again "ibuprofen is helping me... it helps my thoughts, makes me feel calm, and takes away my pain." aranoid that people are taking money from her [employer] account and told will help her to get on the phone with [employer] as she is blind and can't do it online to put her bank card account on hold so no one can take money from which she is happy about. She is more oriented to time, place, and who I am today. Pt easily frustrated by questions during interview again and yelled at me for not telling her about myself and if God talks to me. She continues to appear paranoid especially of medications, isolative, responding to internal stimuli, paranoid delusions regarding people steeling her money and antipsychotic medication. She is uncooperative with interview. Denies SI/HI. Will change haldol to abilify as pt refusing invega and haldol due to somatic delusions. Complaint of side effects could very likely be related to somatic paranoid delusions regarding any antipsychotic medication. MANAGEMENT PLAN: D/c haldol, start abilify 2.5mg qhs. Medications: abilify 2.5mg qhs vistaril 10mg q4hr prn anxiety zyprexa 10mg q4hr prn agitation TIME SPENT: 30 minutes. Vital Signs Vital Signs Date Time Temp Pulse Resp B/P (MAP) Pulse Ox O2 Delivery O2 Flow Rate FiO2 07/30/19 06:16 97.1 78 16 116/53 (74) 07/29/19 06:16 Room Air Current Medications Current Medications Medications (Trade) Dose Ordered Sig/Dario Route PRN Reason Start Time Stop Time Status Last Admin Dose Admin Al Hydrox/Mg Hydrox/Simethicone (Mylanta) 30 ml Q4HP PRN PO HEARTBURN/INDIGESTION 07/23/19 16:30 Albuterol Sulfate (Proventil Neb) 2.5 mg RQ6H NEB 07/24/19 20:00 07/29/19 13:52 Artificial Tears (Akwa Tears) 2 drop TIDP PRN OU DRY EYES 07/29/19 13:15 07/29/19 15:15 Cyclobenzaprine HCl (Flexeril) 10 mg Q8HP PRN PO discomfort 07/24/19 11:00 07/25/19 13:34 Diphenhydramine HCl (Benadryl) 25 mg QHS PRN PO EPS from Haldol 07/28/19 20:00 Fluticasone Propionate (Flovent Hfa 220mcg) 2 puff BID INH 07/24/19 09:00 07/29/19 20:17 Haloperidol (Haldol) 5 mg QHS PO 07/28/19 21:00 07/28/19 21:20 Hydroxyzine HCl (Atarax) 10 mg TIDP PRN PO ANXIETY/AGITATION 07/24/19 11:00 07/24/19 20:35 Ibuprofen (Advil) 400 mg Q6HP PRN PO PAIN 07/23/19 16:30 07/29/19 20:42 Magnesium Hydroxide (Milk Of Magnesia) 30 ml DAILYPRN PRN PO CONSTIPATION 07/23/19 16:30 Meclizine HCl (Antivert) 25 mg TIDP PRN PO DIZZINESS 07/24/19 11:00 07/30/19 00:32 Olanzapine (ZyPREXA) 5 mg Q4HP PRN PO AGITATION 07/23/19 16:30 Paliperidone (Invega) 3 mg QHS PO 07/25/19 21:00 07/28/19 19:52 DC 07/27/19 21:14 Phenyleph/Shark Oil/Min Oil/Petrol (Preparation H Ointment) APPLY TO HEMORRHOIDAL AREA QID PRN TOP itchiness 07/29/19 20:30 Risperidone (RisperDAL) 4 mg QHS PO 07/24/19 21:00 07/25/19 10:13 DC Senna (Senokot) 1 tab QHS PRN PO CONSTIPATION 07/24/19 11:00 07/29/19 15:33 Trazodone HCl (Desyrel) 50 mg QHSP PRN PO INSOMNIA 07/23/19 16:30 Allergies Coded Allergies: azithromycin (Unverified Allergy, Mild, loose stools , 07/29/19) ARANZA FUNEZ DO Jul 30, 2019 8:35 am
[2019-07-30] MEDS: PREPARATION H OINTMENT (HEMORRHOID) TOP PRN (11:24)
[2019-07-30] MEDS: POLYVINYL ALCOHOL OPHTH SOLN 15 ML(LIQUITEARS) OU PRN ×2 (11:26→19:35)
[2019-07-30] MEDS: IBUPROFEN 400 MG TAB PO PRN (14:24)
[2019-07-30 16:59] VITALS: BP 121/57
[2019-07-30] MEDS: SENNA 8.6 MG TAB (SENOKOT) PO PRN (19:35)
[2019-07-31] MEDS: ALBUTEROL SULFATE 2.5 MG/0.5 ML INH NEB SOLN NEB SCH ×4 (01:45→20:00)
[2019-07-31] MEDS: MECLIZINE 25 MG TABLET PO PRN ×3 (02:41→17:55)
[2019-07-31 06:59] VITALS: BP 113/57
[2019-07-31] MEDS: FLUTICASONE HFA 220 MCG 12 GM INHALER (FLOVENT) INH SCH ×2 (08:19→20:34)
[2019-07-31] MEDS: POLYVINYL ALCOHOL OPHTH SOLN 15 ML(LIQUITEARS) OU PRN ×2 (08:21→16:54)
--- NOTE | 2019-07-31 10:00 | MHIPNPDOC ---
[facility] Progress Note Progress Note DATE OF SERVICE: 07/31/19 HISTORY: Patient is a 68 -year-old , female, with a presumed history of Schizophrenia and several past psych admissions in [place] who was seen by Dr. Kayli webster regarding consult on medical floor after pt was brought to the hospital due to being found talking to the wall in her apartment lobby, paranoid, and talking of episcopal things. Pt's daughter, who pt lives with reported pt is not at her baseline and had a recent med change outpatient but does not know what medication pt is currently taking. Per ED, asked interviewer if they were aware of the poison and that they shouldn't talk about it. Pt also stated in ED that her daughter was here on the cold floor and that she could not remember where she lived then stopped talking and cooperative with interview. Pt seen with 1:1 sitter present due to being blind in her room sitting in a chair with a blanket over her head appearing irritated and anxious stating "my daughter keeps putting me in hospitals for no reason." She is very disorganized and tangential. She is a very poor historian. Denies knowing why she here. Talks and refers to hospitals in [place] where she moved from like she still lives there then about [place] and states she lives here now. States she wants to go home. States she doesn't know if she likes risperdal or vistaril and had been taking one of them and not the other, most likely vistaril she was taking consider she is psychotic now most likely due to med noncompliance. Pt rambles on from one topic to the next with pressured speech making her very difficult to understand. Pt is a very poor historian and history gathered from previous hospital records. VITAL SIGNS: See below. NEW TEST RESULTS: See below. CURRENT MEDICATIONS: See below. MENTAL STATUS EXAMINATION: General Appearance: unkempt, appears stated age, hospital scrubs/clothing Build: average Demeanor: cooperative Eye Contact: poor Activity: less anxious Behavior: cooperative, less anxious Speech: reg rate, spontaneous, normal volume Mood: more euthymic and full range Mood "I have no headaches from the medicine" Affect: more appropriate and euthymic Thought Process: les tangential, loose, associative, flight of ideas, religiosity Thought Content (Delusions): less paranoia regarding antipsychotic medications, deniessomatic delusions related to taking medications ( Thought Content (Other): less preoccupied, obsessional, ideas of reference, internal-stimuli, appears paranoid, religiosity Thought Content (Aggressive): none reported Perception (Hallucinations): auditory, visual Perception (Other): none reported Cognition (Impairment of): improved attention/concentration, ability to abstract Cognition(Intelligence Est.): average Oriented: Awake, Alert, Oriented times three Insight: poor Judgment: Poor Psychosis: improving Associations, Abstract Thinking, Psychotic Perceptions DIAGNOSES: Paranoid Schizophrenia ASSESSMENT:Pt took the abilify ordered for her yesterday and per her sitter appears to be doing well on it to the point she has been going to groups and participating in them. Pt seen in her room with sitter present and states she's doing ood and that she tolerated abilify well "wino headaches" and feels like her thoughts are moving less fast, appears much more calm and is pleasant and cooperative. Asking to take abilify earlier at night to go to bed early which can be done. Asking to be able to wear a hat in the halls b/c the light hurts her eyes. Showed me her art work of garcia she did in group yesterday. She is less paranoid and religiously preoccupied today. She is more oriented to time, place, and who I am today. Denies SI/HI. Statess she doesn't want placement in [facility] as she does fine living at home taking care of herself. Pt appears to need and would greatly benefit from [facility] residential though and pt's daughter believes it will be the best place for the pt and the pt has lived in residential housing much of her adult life due to schizophrenia. MANAGEMENT PLAN: continue plan Medications: abilify 2.5mg qhs vistaril 10mg q4hr prn anxiety zyprexa 10mg q4hr prn agitation TIME SPENT: 30 minutes. Vital Signs Vital Signs Date Time Temp Pulse Resp B/P (MAP) Pulse Ox O2 Delivery O2 Flow Rate FiO2 07/31/19 08:44 Room Air 07/31/19 06:59 99.0 68 12 113/57 (75) Current Medications Current Medications Medications (Trade) Dose Ordered Sig/Dario Route PRN Reason Start Time Stop Time Status Last Admin Dose Admin Al Hydrox/Mg Hydrox/Simethicone (Mylanta) 30 ml Q4HP PRN PO HEARTBURN/INDIGESTION 07/23/19 16:30 Albuterol Sulfate (Proventil Neb) 2.5 mg RQ6H NEB 07/24/19 20:00 07/31/19 07:22 Aripiprazole (AbiLIFY) 2.5 mg QHS PO 07/30/19 21:00 07/30/19 20:07 Artificial Tears (Akwa Tears) 2 drop TIDP PRN OU DRY EYES 07/29/19 13:15 07/31/19 08:21 Cyclobenzaprine HCl (Flexeril) 10 mg Q8HP PRN PO discomfort 07/24/19 11:00 07/25/19 13:34 Diphenhydramine HCl (Benadryl) 25 mg QHS PRN PO EPS from Haldol 07/28/19 20:00 Fluticasone Propionate (Flovent Hfa 220mcg) 2 puff BID INH 07/24/19 09:00 07/31/19 08:19 Haloperidol (Haldol) 5 mg QHS PO 07/28/19 21:00 07/30/19 10:35 DC 07/28/19 21:20 Hydroxyzine HCl (Atarax) 10 mg TIDP PRN PO ANXIETY/AGITATION 07/24/19 11:00 07/24/19 20:35 Ibuprofen (Advil) 400 mg Q6HP PRN PO PAIN 07/23/19 16:30 07/30/19 14:24 Magnesium Hydroxide (Milk Of Magnesia) 30 ml DAILYPRN PRN PO CONSTIPATION 07/23/19 16:30 Meclizine HCl (Antivert) 25 mg TIDP PRN PO DIZZINESS 07/24/19 11:00 07/31/19 02:41 Olanzapine (ZyPREXA) 5 mg Q4HP PRN PO AGITATION 07/23/19 16:30 Paliperidone (Invega) 3 mg QHS PO 07/25/19 21:00 07/28/19 19:52 DC 07/27/19 21:14 Phenyleph/Shark Oil/Min Oil/Petrol (Preparation H Ointment) APPLY TO HEMORRHOIDAL AREA QID PRN TOP itchiness 07/29/19 20:30 07/30/19 11:24 Risperidone (RisperDAL) 4 mg QHS PO 07/24/19 21:00 07/25/19 10:13 DC Senna (Senokot) 1 tab QHS PRN PO CONSTIPATION 07/24/19 11:00 07/30/19 19:35 Trazodone HCl (Desyrel) 50 mg QHSP PRN PO INSOMNIA 07/23/19 16:30 Allergies Coded Allergies: azithromycin (Unverified Allergy, Mild, loose stools , 07/29/19) ARANZA FUNEZ DO Jul 31, 2019 10:00 am
[2019-07-31] MEDS: CIPROFLOXACIN 500 MG TAB PO SCH ×2 (10:30→17:52)
[2019-07-31] MEDS: IBUPROFEN 400 MG TAB PO PRN ×2 (12:01→21:04)
[2019-07-31 16:05] VITALS: BP 109/55
[2019-07-31] MEDS: SENNA 8.6 MG TAB (SENOKOT) PO PRN (17:52)
[2019-08-01] MEDS: ALBUTEROL SULFATE 2.5 MG/0.5 ML INH NEB SOLN NEB SCH ×4 (02:00→19:28)
[2019-08-01] MEDS: MECLIZINE 25 MG TABLET PO PRN ×3 (02:47→19:08)
[2019-08-01] MEDS: CIPROFLOXACIN 500 MG TAB PO SCH ×2 (05:52→18:07)
[2019-08-01 06:29] VITALS: BP 119/60
[2019-08-01] MEDS: FLUTICASONE HFA 220 MCG 12 GM INHALER (FLOVENT) INH SCH ×2 (08:41→20:09)
--- NOTE | 2019-08-01 09:15 | MHIPNPDOC ---
[facility] Progress Note Progress Note DATE OF SERVICE: 08/01/19 HISTORY: Patient is a 68 -year-old , female, with a presumed history of Schizophrenia and several past psych admissions in [place] who was seen by Dr. Kayli webster regarding consult on medical floor after pt was brought to the hospital due to being found talking to the wall in her apartment lobby, paranoid, and talking of moravian things. Pt's daughter, who pt lives with reported pt is not at her baseline and had a recent med change outpatient but does not know what medication pt is currently taking. Per ED, asked interviewer if they were aware of the poison and that they shouldn't talk about it. Pt also stated in ED that her daughter was here on the cold floor and that she could not remember where she lived then stopped talking and cooperative with interview. Pt seen with 1:1 sitter present due to being blind in her room sitting in a chair with a blanket over her head appearing irritated and anxious stating "my daughter keeps putting me in hospitals for no reason." She is very disorganized and tangential. She is a very poor historian. Denies knowing why she here. Talks and refers to hospitals in [place] where she moved from like she still lives there then about [place] and states she lives here now. States she wants to go home. States she doesn't know if she likes risperdal or vistaril and had been taking one of them and not the other, most likely vistaril she was taking consider she is psychotic now most likely due to med noncompliance. Pt rambles on from one topic to the next with pressured speech making her very difficult to understand. Pt is a very poor historian and history gathered from previous hospital records. VITAL SIGNS: See below. NEW TEST RESULTS: See below. CURRENT MEDICATIONS: See below. MENTAL STATUS EXAMINATION: General Appearance: unkempt, appears stated age, hospital scrubs/clothing Build: average Demeanor: cooperative Eye Contact: poor Activity: less anxious Behavior: cooperative, less anxious Speech: reg rate, spontaneous, normal volume Mood: more euthymic and full range Mood "I have no headaches from the medicine" Affect: more appropriate and euthymic Thought Process: les tangential, loose, associative, flight of ideas, religiosity Thought Content (Delusions): less paranoia regarding antipsychotic medications, deniessomatic delusions related to taking medications ( Thought Content (Other): less preoccupied, obsessional, ideas of reference, internal-stimuli, appears paranoid, religiosity Thought Content (Aggressive): none reported Perception (Hallucinations): auditory, visual Perception (Other): none reported Cognition (Impairment of): improved attention/concentration, ability to abstract Cognition(Intelligence Est.): average Oriented: Awake, Alert, Oriented times three Insight: poor Judgment: Poor Psychosis: improving Associations, Abstract Thinking, Psychotic Perceptions DIAGNOSES: Paranoid Schizophrenia ASSESSMENT:Pt is taking her abilify that she says she's tolerating well and feels is beneficial as feels calmer here. Per her sitter continues to appear to be doing well on it to the point she has been going to groups and participating in them. Pt seen in office with sitter present and states she's doing good and is calm, pleasant, and cooperative. She is less paranoid and religiously preoccupied with medications. She is having improvement in orientation to time, place, and who I am today. Denies SI/HI. Continues to states she doesn't want placement in [facility] as she does fine living at home taking care of herself. Pt appears to need and would greatly benefit from [facility] residential though and pt's daughter believes it will be the best place for the pt and the pt has lived in residential housing much of her adult life due to schizophrenia. MANAGEMENT PLAN: continue plan Medications: abilify 2.5mg qhs vistaril 10mg q4hr prn anxiety zyprexa 10mg q4hr prn agitation TIME SPENT: 30 minutes. Vital Signs Vital Signs Date Time Temp Pulse Resp B/P (MAP) Pulse Ox O2 Delivery O2 Flow Rate FiO2 08/01/19 06:29 98.0 66 16 119/60 (79) Room Air Current Medications Current Medications Medications (Trade) Dose Ordered Sig/Dario Route PRN Reason Start Time Stop Time Status Last Admin Dose Admin Al Hydrox/Mg Hydrox/Simethicone (Mylanta) 30 ml Q4HP PRN PO HEARTBURN/INDIGESTION 07/23/19 16:30 Albuterol Sulfate (Proventil Neb) 2.5 mg RQ6H NEB 07/24/19 20:00 07/31/19 13:37 Aripiprazole (AbiLIFY) 2.5 mg DAILY@1800 PO 07/31/19 18:00 07/31/19 17:52 Aripiprazole (AbiLIFY) 2.5 mg QHS PO 07/30/19 21:00 07/31/19 10:00 DC 07/30/19 20:07 Artificial Tears (Akwa Tears) 2 drop TIDP PRN OU DRY EYES 07/29/19 13:15 07/31/19 16:54 Ciprofloxacin (Cipro) 500 mg BID@06,18 PO 07/31/19 06:00 08/01/19 05:52 Cyclobenzaprine HCl (Flexeril) 10 mg Q8HP PRN PO discomfort 07/24/19 11:00 07/25/19 13:34 Diphenhydramine HCl (Benadryl) 25 mg QHS PRN PO EPS from Haldol 07/28/19 20:00 Fluticasone Propionate (Flovent Hfa 220mcg) 2 puff BID INH 07/24/19 09:00 08/01/19 08:41 Haloperidol (Haldol) 5 mg QHS PO 07/28/19 21:00 07/30/19 10:35 DC 07/28/19 21:20 Hydroxyzine HCl (Atarax) 10 mg TIDP PRN PO ANXIETY/AGITATION 07/24/19 11:00 07/24/19 20:35 Ibuprofen (Advil) 400 mg Q6HP PRN PO PAIN 07/23/19 16:30 07/31/19 21:04 Magnesium Hydroxide (Milk Of Magnesia) 30 ml DAILYPRN PRN PO CONSTIPATION 07/23/19 16:30 Meclizine HCl (Antivert) 25 mg TIDP PRN PO DIZZINESS 07/24/19 11:00 08/01/19 02:47 Olanzapine (ZyPREXA) 5 mg Q4HP PRN PO AGITATION 07/23/19 16:30 Paliperidone (Invega) 3 mg QHS PO 07/25/19 21:00 07/28/19 19:52 DC 07/27/19 21:14 Phenyleph/Shark Oil/Min Oil/Petrol (Preparation H Ointment) APPLY TO HEMORRHOIDAL AREA QID PRN TOP itchiness 07/29/19 20:30 07/30/19 11:24 Risperidone (RisperDAL) 4 mg QHS PO 07/24/19 21:00 07/25/19 10:13 DC Senna (Senokot) 1 tab QHS PRN PO CONSTIPATION 07/24/19 11:00 07/31/19 17:52 Trazodone HCl (Desyrel) 50 mg QHSP PRN PO INSOMNIA 07/23/19 16:30 Allergies Coded Allergies: azithromycin (Unverified Allergy, Mild, loose stools , 07/29/19) ARANZA FUNEZ DO Aug 01, 2019 9:02 am
[2019-08-01] MEDS: IBUPROFEN 400 MG TAB PO PRN (11:58)
[2019-08-01 16:30] VITALS: BP 101/55
[2019-08-01] MEDS: SENNA 8.6 MG TAB (SENOKOT) PO PRN (20:09)
[2019-08-01] MEDS: POLYVINYL ALCOHOL OPHTH SOLN 15 ML(LIQUITEARS) OU PRN (23:02)
[2019-08-02] MEDS: ALBUTEROL SULFATE 2.5 MG/0.5 ML INH NEB SOLN NEB SCH ×5 (02:00→19:38)
[2019-08-02] MEDS: MECLIZINE 25 MG TABLET PO PRN ×2 (03:30→14:27)
[2019-08-02] MEDS: CIPROFLOXACIN 500 MG TAB PO SCH ×2 (05:56→17:50)
[2019-08-02 06:09] VITALS: BP 134/72
[2019-08-02] MEDS: PREPARATION H OINTMENT (HEMORRHOID) TOP PRN (08:51)
[2019-08-02] MEDS: POLYVINYL ALCOHOL OPHTH SOLN 15 ML(LIQUITEARS) OU PRN ×2 (08:51→21:00)
[2019-08-02] MEDS: FLUTICASONE HFA 220 MCG 12 GM INHALER (FLOVENT) INH SCH ×2 (08:51→21:00)
[2019-08-02] MEDS: IBUPROFEN 400 MG TAB PO PRN ×2 (10:25→19:24)
--- NOTE | 2019-08-02 11:13 | MHIPNPDOC ---
[facility] Progress Note Progress Note DATE OF SERVICE: 08/02/19 HISTORY: Patient is a 68 -year-old , female, with a presumed history of Schizophrenia and several past psych admissions in [place] who was seen by Dr. Kayli webster regarding consult on medical floor after pt was brought to the hospital due to being found talking to the wall in her apartment lobby, paranoid, and talking of jew things. Pt's daughter, who pt lives with reported pt is not at her baseline and had a recent med change outpatient but does not know what medication pt is currently taking. Per ED, asked interviewer if they were aware of the poison and that they shouldn't talk about it. Pt also stated in ED that her daughter was here on the cold floor and that she could not remember where she lived then stopped talking and cooperative with interview. Pt seen with 1:1 sitter present due to being blind in her room sitting in a chair with a blanket over her head appearing irritated and anxious stating "my daughter keeps putting me in hospitals for no reason." She is very disorganized and tangential. She is a very poor historian. Denies knowing why she here. Talks and refers to hospitals in [place] where she moved from like she still lives there then about [place] and states she lives here now. States she wants to go home. States she doesn't know if she likes risperdal or vistaril and had been taking one of them and not the other, most likely vistaril she was taking consider she is psychotic now most likely due to med noncompliance. Pt rambles on from one topic to the next with pressured speech making her very difficult to understand. Pt is a very poor historian and history gathered from previous hospital records. VITAL SIGNS: See below. NEW TEST RESULTS: See below. CURRENT MEDICATIONS: See below. MENTAL STATUS EXAMINATION: General Appearance: unkempt, appears stated age, hospital scrubs/clothing Build: average Demeanor: cooperative Eye Contact: poor Activity: less anxious Behavior: cooperative, less anxious Speech: reg rate, spontaneous, normal volume Mood: more euthymic and full range Mood "I'm doing good" Affect: more appropriate and euthymic Thought Process: les tangential, loose, associative, flight of ideas, religi osity Thought Content (Delusions): less paranoia regarding antipsychotic medications, denies somatic delusions related to taking medications ( Thought Content (Other): less preoccupied, obsessional, ideas of reference, internal-stimuli, appears paranoid, religiosity Thought Content (Aggressive): none reported Perception (Hallucinations): auditory, visual Perception (Other): none reported Cognition (Impairment of): improved attention/concentration, ability to abstract Cognition(Intelligence Est.): average Oriented: Awake, Alert, Oriented times three Insight: poor Judgment: Poor Psychosis: improving Associations, Abstract Thinking, Psychotic Perceptions DIAGNOSES: Paranoid Schizophrenia ASSESSMENT:Pt continues to take her abilify that she says she's tolerating well and feels is beneficial as feels calmer here. Per her sitter continues to appear to be doing well on it to the point she has been going to groups and participating in them. Pt seen in her room with sitter present and states she's doing good and is calm, pleasant, and cooperative. States she continues to like the Abilify with no problems with it compared to past med tried. She continues to show improvement in paranoia and religiously preoccupied thoughts with medications. She is having improvement in orientation to time, place, and who I am today. Denies SI/HI. Continues to states she doesn't want placement in [facility] as she does fine living at home taking care of herself. Pt appears to need and would greatly benefit from [facility] residential though and pt's daughter believes it will be the best place for the pt and the pt has lived in residential housing much of her adult life due to schizophrenia. Is hopeful to be home for [place]. MANAGEMENT PLAN: continue plan Medications: abilify 2.5mg qhs vistaril 10mg q4hr prn anxiety zyprexa 10mg q4hr prn agitation TIME SPENT: 30 minutes. Vital Signs Vital Signs Date Time Temp Pulse Resp B/P (MAP) Pulse Ox O2 Delivery O2 Flow Rate FiO2 08/02/19 06:09 98.7 80 18 134/72 (92) 08/01/19 09:45 Room Air Current Medications Current Medications Medications (Trade) Dose Ordered Sig/Dario Route PRN Reason Start Time Stop Time Status Last Admin Dose Admin Al Hydrox/Mg Hydrox/Simethicone (Mylanta) 30 ml Q4HP PRN PO HEARTBURN/INDIGESTION 07/23/19 16:30 Albuterol Sulfate (Proventil Neb) 2.5 mg RQ6H NEB 07/24/19 20:00 08/01/19 13:45 Aripiprazole (AbiLIFY) 2.5 mg DAILY@1800 PO 07/31/19 18:00 08/01/19 18:08 Aripiprazole (AbiLIFY) 2.5 mg QHS PO 07/30/19 21:00 07/31/19 10:00 DC 07/30/19 20:07 Artificial Tears (Akwa Tears) 2 drop TIDP PRN OU DRY EYES 07/29/19 13:15 08/02/19 08:51 Ciprofloxacin (Cipro) 500 mg BID@06,18 PO 07/31/19 06:00 08/02/19 05:56 Cyclobenzaprine HCl (Flexeril) 10 mg Q8HP PRN PO discomfort 07/24/19 11:00 07/25/19 13:34 Diphenhydramine HCl (Benadryl) 25 mg QHS PRN PO EPS from Haldol 07/28/19 20:00 Fluticasone Propionate (Flovent Hfa 220mcg) 2 puff BID INH 07/24/19 09:00 08/02/19 08:51 Haloperidol (Haldol) 5 mg QHS PO 07/28/19 21:00 07/30/19 10:35 DC 07/28/19 21:20 Hydroxyzine HCl (Atarax) 10 mg TIDP PRN PO ANXIETY/AGITATION 07/24/19 11:00 07/24/19 20:35 Ibuprofen (Advil) 400 mg Q6HP PRN PO PAIN 07/23/19 16:30 08/01/19 11:58 Magnesium Hydroxide (Milk Of Magnesia) 30 ml DAILYPRN PRN PO CONSTIPATION 07/23/19 16:30 Meclizine HCl (Antivert) 25 mg TIDP PRN PO DIZZINESS 07/24/19 11:00 08/02/19 03:30 Olanzapine (ZyPREXA) 5 mg Q4HP PRN PO AGITATION 07/23/19 16:30 Paliperidone (Invega) 3 mg QHS PO 07/25/19 21:00 07/28/19 19:52 DC 07/27/19 21:14 Phenyleph/Shark Oil/Min Oil/Petrol (Preparation H Ointment) APPLY TO HEMORRHOIDAL AREA QID PRN TOP itchiness 07/29/19 20:30 08/02/19 08:51 Risperidone (RisperDAL) 4 mg QHS PO 07/24/19 21:00 07/25/19 10:13 DC Senna (Senokot) 1 tab QHS PRN PO CONSTIPATION 07/24/19 11:00 08/01/19 20:09 Trazodone HCl (Desyrel) 50 mg QHSP PRN PO INSOMNIA 07/23/19 16:30 Allergies Coded Allergies: azithromycin (Unverified Allergy, Mild, loose stools , 07/29/19) ARANZA FUNEZ DO Aug 02, 2019 9:15 am
[2019-08-02 16:33] VITALS: BP 117/54
[2019-08-02] MEDS: SENNA 8.6 MG TAB (SENOKOT) PO PRN (21:05)
[2019-08-03] MEDS: ALBUTEROL SULFATE 2.5 MG/0.5 ML INH NEB SOLN NEB SCH ×4 (02:00→20:23)
[2019-08-03] MEDS: CIPROFLOXACIN 500 MG TAB PO SCH ×2 (05:16→17:47)
[2019-08-03] MEDS: MECLIZINE 25 MG TABLET PO PRN ×2 (05:16→20:03)
[2019-08-03 06:15] VITALS: BP 127/66
[2019-08-03] MEDS: IBUPROFEN 400 MG TAB PO PRN (06:59)
[2019-08-03] MEDS: FLUTICASONE HFA 220 MCG 12 GM INHALER (FLOVENT) INH SCH ×2 (08:15→20:03)
[2019-08-03] MEDS: POLYVINYL ALCOHOL OPHTH SOLN 15 ML(LIQUITEARS) OU PRN ×2 (09:03→20:06)
--- NOTE | 2019-08-03 10:25 | MHIPNPDOC ---
[facility] Progress Note Progress Note DATE OF SERVICE: 08/03/19 HISTORY: Patient is a 68 -year-old , female, with a presumed history of Schizophrenia and several past psych admissions in [place] who was seen by Dr. Kayli webster regarding consult on medical floor after pt was brought to the hospital due to being found talking to the wall in her apartment lobby, paranoid, and talking of scientologist things. Pt's daughter, who pt lives with reported pt is not at her baseline and had a recent med change outpatient but does not know what medication pt is currently taking. Per ED, asked interviewer if they were aware of the poison and that they shouldn't talk about it. Pt also stated in ED that her daughter was here on the cold floor and that she could not remember where she lived then stopped talking and cooperative with interview. Pt seen with 1:1 sitter present due to being blind in her room sitting in a chair with a blanket over her head appearing irritated and anxious stating "my daughter keeps putting me in hospitals for no reason." She is very disorganized and tangential. She is a very poor historian. Denies knowing why she here. Talks and refers to hospitals in [place] where she moved from like she still lives there then about [place] and states she lives here now. States she wants to go home. States she doesn't know if she likes risperdal or vistaril and had been taking one of them and not the other, most likely vistaril she was taking consider she is psychotic now most likely due to med noncompliance. Pt rambles on from one topic to the next with pressured speech making her very difficult to understand. Pt is a very poor historian and history gathered from previous hospital records. VITAL SIGNS: See below. NEW TEST RESULTS: See below. CURRENT MEDICATIONS: See below. MENTAL STATUS EXAMINATION: General Appearance: unkempt, appears stated age, hospital scrubs/clothing Build: average Demeanor: cooperative Eye Contact: poor Activity: calm Behavior: cooperative Speech: reg rate, spontaneous, normal volume Mood: more euthymic and full range Mood "I'm doing good" Affect: more appropriate and euthymic Thought Process: more linear and logical, concrete religiosity Thought Content (Delusions): less paranoia regarding antipsychotic medications, religiosity Thought Content (Other): less preoccupied, religiosity Thought Content (Aggressive): none reported Perception (Hallucinations): auditory, visual Perception (Other): none reported Cognition (Impairment of): improved attention/concentration, ability to abstract Cognition(Intelligence Est.): average Oriented: Awake, Alert, Oriented times three Insight: poor Judgment: Poor Psychosis: improving Associations, Abstract Thinking, Psychotic Perceptions DIAGNOSES: Paranoid Schizophrenia ASSESSMENT:Per nursing pt talking in scientologist tongues yesterday and to God but otherwise cooperative on the unit and doing well. Pt continues to take her abilify that she says she's tolerating well and feels is beneficial as feels calmer here. Stes she agreeable abilify 2mg bid for religiosity. Pt seen in her room with sitter present and states she's doing good and is calm, pleasant, and cooperative. States she continues to like the Abilify with no problems with it compared to past med tried. She continues to show improvement in paranoia and religiously preoccupied thoughts with medications altough per staff having increased religiosity last night. She is having improvement in orientation to time, place, and who I am today. Denies SI/HI. Continues to states she doesn't want placement in [facility] as she does fine living at home taking care of herself. Pt appears to need and would greatly benefit from [facility] residential though and pt's daughter believes it will be the best place for the pt and the pt has lived in residential housing much of her adult life due to schizophrenia. Is hopeful to be home for [place]. MANAGEMENT PLAN: continue plan. change abilify to 2mg bid Medications: abilify 2mg bid vistaril 10mg q4hr prn anxiety zyprexa 10mg q4hr prn agitation TIME SPENT: 30 minutes. Vital Signs Vital Signs Date Time Temp Pulse Resp B/P (MAP) Pulse Ox O2 Delivery O2 Flow Rate FiO2 08/03/19 06:15 98.0 65 16 127/66 (86) 08/01/19 09:45 Room Air Current Medications Current Medications Medications (Trade) Dose Ordered Sig/Dario Route PRN Reason Start Time Stop Time Status Last Admin Dose Admin Al Hydrox/Mg Hydrox/Simethicone (Mylanta) 30 ml Q4HP PRN PO HEARTBURN/INDIGESTION 07/23/19 16:30 Albuterol Sulfate (Proventil Neb) 2.5 mg RQ6H NEB 07/24/19 20:00 08/02/19 16:40 Aripiprazole (AbiLIFY) 2.5 mg DAILY@1800 PO 07/31/19 18:00 08/02/19 17:50 Aripiprazole (AbiLIFY) 2.5 mg QHS PO 07/30/19 21:00 07/31/19 10:00 DC 07/30/19 20:07 Artificial Tears (Akwa Tears) 2 drop TIDP PRN OU DRY EYES 07/29/19 13:15 08/03/19 09:03 Ciprofloxacin (Cipro) 500 mg BID@06,18 PO 07/31/19 06:00 08/03/19 05:16 Cyclobenzaprine HCl (Flexeril) 10 mg Q8HP PRN PO discomfort 07/24/19 11:00 07/25/19 13:34 Diphenhydramine HCl (Benadryl) 25 mg QHS PRN PO EPS from Haldol 07/28/19 20:00 Fluticasone Propionate (Flovent Hfa 220mcg) 2 puff BID INH 07/24/19 09:00 08/03/19 08:15 Haloperidol (Haldol) 5 mg QHS PO 07/28/19 21:00 07/30/19 10:35 DC 07/28/19 21:20 Hydroxyzine HCl (Atarax) 10 mg TIDP PRN PO ANXIETY/AGITATION 07/24/19 11:00 07/24/19 20:35 Ibuprofen (Advil) 400 mg Q6HP PRN PO PAIN 07/23/19 16:30 08/03/19 06:59 Magnesium Hydroxide (Milk Of Magnesia) 30 ml DAILYPRN PRN PO CONSTIPATION 07/23/19 16:30 Meclizine HCl (Antivert) 25 mg TIDP PRN PO DIZZINESS 07/24/19 11:00 08/03/19 05:16 Olanzapine (ZyPREXA) 5 mg Q4HP PRN PO AGITATION 07/23/19 16:30 Paliperidone (Invega) 3 mg QHS PO 07/25/19 21:00 07/28/19 19:52 DC 07/27/19 21:14 Phenyleph/Shark Oil/Min Oil/Petrol (Preparation H Ointment) APPLY TO HEMORRHOIDAL AREA QID PRN TOP itchiness 07/29/19 20:30 08/02/19 08:51 Risperidone (RisperDAL) 4 mg QHS PO 07/24/19 21:00 07/25/19 10:13 DC Senna (Senokot) 1 tab QHS PRN PO CONSTIPATION 07/24/19 11:00 08/02/19 21:05 Trazodone HCl (Desyrel) 50 mg QHSP PRN PO INSOMNIA 07/23/19 16:30 Allergies Coded Allergies: azithromycin (Unverified Allergy, Mild, loose stools , 07/29/19) ARANZA FUNEZ DO Aug 03, 2019 10:25 am
[2019-08-03] MEDS: ARIPiprazole 2 MG TAB PO SCH ×2 (10:48→20:03)
[2019-08-03 16:05] VITALS: BP 124/58
[2019-08-03] MEDS: SENNA 8.6 MG TAB (SENOKOT) PO PRN (20:03)
[2019-08-04] MEDS: ALBUTEROL SULFATE 2.5 MG/0.5 ML INH NEB SOLN NEB SCH ×5 (02:00→22:55)
[2019-08-04] MEDS: MECLIZINE 25 MG TABLET PO PRN ×2 (04:41→17:58)
[2019-08-04] MEDS: CIPROFLOXACIN 500 MG TAB PO SCH ×2 (05:52→17:55)
[2019-08-04 06:35] VITALS: BP 125/63
[2019-08-04] MEDS: ARIPiprazole 2 MG TAB PO SCH ×2 (08:25→20:07)
[2019-08-04] MEDS: FLUTICASONE HFA 220 MCG 12 GM INHALER (FLOVENT) INH SCH ×2 (08:25→20:07)
[2019-08-04] MEDS: IBUPROFEN 400 MG TAB PO PRN (09:52)
--- NOTE | 2019-08-04 15:50 | MHIPN ---
DATE: 08/04/2019 VITAL SIGNS: Blood pressure 125/63, pulse 67, temperature 98.8. CHIEF COMPLAINT: Feels good. SUBJECTIVE: She is seen for followup in the presence of staff. She says that she feels good and that she feels more rested. Says sleep is improved. Describes her appetite as okay. Says is in touch with her children. MENTAL STATUS EXAMINATION: She is neat. She is cooperative. She is coherent for the most part, at times a bit tangential. Affect is restricted in range. Denies any active suicidal thoughts or intents. No homicidal ideas or intents. She is alert and oriented. Judgment and insight remain compromised. ASSESSMENT: Schizophrenia. PLAN: Continue current care and observations, including one on one observation for now. She is to continue with the Abilify, she suggests that it is less tiring than the Haldol.
[2019-08-04 15:56] VITALS: BP 114/56
[2019-08-04] MEDS: POLYVINYL ALCOHOL OPHTH SOLN 15 ML(LIQUITEARS) OU PRN (18:00)
[2019-08-05] MEDS: MECLIZINE 25 MG TABLET PO PRN ×2 (02:52→10:56)
[2019-08-05] MEDS: CIPROFLOXACIN 500 MG TAB PO SCH ×2 (05:48→17:02)
[2019-08-05 06:42] VITALS: BP 104/61
[2019-08-05] MEDS: ALBUTEROL SULFATE 2.5 MG/0.5 ML INH NEB SOLN NEB SCH ×4 (07:48→20:58)
[2019-08-05] MEDS: FLUTICASONE HFA 220 MCG 12 GM INHALER (FLOVENT) INH SCH ×2 (08:10→20:01)
[2019-08-05] MEDS: ARIPiprazole 2 MG TAB PO SCH ×2 (08:10→20:01)
[2019-08-05] MEDS: POLYVINYL ALCOHOL OPHTH SOLN 15 ML(LIQUITEARS) OU PRN ×2 (08:12→17:02)
[2019-08-05] MEDS: IBUPROFEN 400 MG TAB PO PRN ×2 (10:56→17:00)
[2019-08-05 15:35] VITALS: BP 118/58
--- NOTE | 2019-08-05 20:35 | MHIPN ---
DATE: 08/05/2019 VITAL SIGNS: Blood pressure 104/61, pulse 68, temperature 98.3. CHIEF COMPLAINT: Says is feeling good. SUBJECTIVE: She is seen for followup, in the presence of staff. Says has been feeling good, and that she slept well. Appetite is good. MENTAL STATUS EXAMINATION: She is neat. She is cooperative. There is no agitation. No psychomotor retardation. Affect is restricted in range, answers questions briefly. Denies any thoughts of harming herself or anyone else. Currently is alert and oriented. Judgment and insight are compromised. ASSESSMENT: 1. Schizophrenia. PLAN: Continue current observations, one on one observation, and the Abilify.
[2019-08-06] MEDS: CIPROFLOXACIN 500 MG TAB PO SCH ×2 (05:29→17:34)
[2019-08-06] MEDS: MECLIZINE 25 MG TABLET PO PRN ×2 (05:29→17:34)
[2019-08-06 06:42] VITALS: BP 108/70
[2019-08-06] MEDS: ALBUTEROL SULFATE 2.5 MG/0.5 ML INH NEB SOLN NEB SCH ×4 (07:47→20:44)
[2019-08-06] MEDS: FLUTICASONE HFA 220 MCG 12 GM INHALER (FLOVENT) INH SCH ×2 (08:06→20:14)
[2019-08-06] MEDS: POLYVINYL ALCOHOL OPHTH SOLN 15 ML(LIQUITEARS) OU PRN (08:07)
[2019-08-06] MEDS: ARIPiprazole 2 MG TAB PO SCH ×2 (08:07→20:14)
[2019-08-06] MEDS: SENNA 8.6 MG TAB (SENOKOT) PO PRN (08:07)
[2019-08-06] MEDS ORDERED: **PENDING PPD ENTRY XX SCH (09:00)
--- NOTE | 2019-08-06 09:24 | MHIPNPDOC ---
[facility] Progress Note Progress Note DATE OF SERVICE: 08/06/19 HISTORY:Patient is a 68 -year-old , female, with a presumed history of Schizophrenia and several past psych admissions in [place] who was seen by Dr. Mk saldivar regarding consult on medical floor after pt was brought to the hospital due to being found talking to the wall in her apartment lobby, paranoid, and talking of baptism things. Pt's daughter, who pt lives with reported pt is not at her baseline and had a recent med change outpatient but does not know what medication pt is currently taking. Per ED, asked interviewer if they were aware of the poison and that they shouldn't talk about it. Pt also stated in ED that her daughter was here on the cold floor and that she could not remember where she lived then stopped talking and cooperative with interview. Pt seen with 1:1 sitter present due to being blind in her room sitting in a chair with a blanket over her head appearing irritated and anxious stating "my daughter keeps putting me in hospitals for no reason." She is very disorganized and tangential. She is a very poor historian. Denies knowing why she here. Talks and refers to hospitals in [place] where she moved from like she still lives there then about [place] and states she lives here now. States she wants to go home. States she doesn't know if she likes risperdal or vistaril and had been taking one of them and not the other, most likely vistaril she was taking consider she is psychotic now most likely due to med noncompliance. Pt rambles on from one topic to the next with pressured speech making her very difficult to understand. Pt is a very poor historian and history gathered from previous hospital records. VITAL SIGNS: See below. NEW TEST RESULTS: See below. CURRENT MEDICATIONS: See below. MENTAL STATUS EXAMINATION: General Appearance: unkempt, appears stated age, hospital scrubs/clothing Build: average Demeanor: cooperative Eye Contact: poor Activity: calm Behavior: cooperative Speech: reg rate, spontaneous, normal volume Mood: more euthymic and full range Mood "I'm doing good" Affect: more appropriate and euthymic Thought Process: more linear and logical, concrete religiosity Thought Content (Delusions): less paranoia regarding antipsychotic medications, religiosity Thought Content (Other): less preoccupied, religiosity Thought Content (Aggressive): none reported Perception (Hallucinations): auditory, visual Perception (Other): none reported Cognition (Impairment of): improved attention/concentration, ability to abstract Cognition(Intelligence Est.): average Oriented: Awake, Alert, Oriented times three Insight: poor Judgment: Poor Psychosis: improving Associations, Abstract Thinking, Psychotic Perceptions DIAGNOSES: Paranoid Schizophrenia ASSESSMENT:Per nursing pt talking in baptism tongues, agitated, religiously preoccupied over the weekend. Accused nurses of lying to her about her medications. Refused prn haldol for agitation. She is compliant on her abilify 2mg bid. Pt seen and states she doing well, denies she was agitated and bizarre over the weekend and accusing staff of "trying to get me in trouble." States she agreeable to changing abilify 4mg qhs as per pt thinks that will be more beneficial. Advised pt that due to her behavior and psychosis over the weekend will not d/c charge pt today due to concerns about her stability as most likely would need readmission if d/c home now which caused pt to become upset and stated she need to leave. She continues to be paranoia regarding meds with somatization and religiously preoccupied thoughts . She is having improvement in orientation to time, place, and who I am today. Denies SI/HI. Continues to states she doesn't want placement in [facility] as she does fine living at home taking care of herself. Pt appears to need and would greatly benefit from [facility] residential though and pt's daughter believes it will be the best place for the pt and the pt has lived in residential housing much of her adult life due to schizophrenia. Is hopeful to be home for [place]. MANAGEMENT PLAN: continue plan. change abilify to 2mg bid Medications: abilify 4mg qhs vistaril 10mg q4hr prn anxiety zyprexa 10mg q4hr prn agitation TIME SPENT: 30 minutes. Vital Signs Vital Signs Date Time Temp Pulse Resp B/P (MAP) Pulse Ox O2 Delivery O2 Flow Rate FiO2 08/06/19 06:42 98.3 69 16 108/70 (83) 08/04/19 08:41 Room Air Current Medications Current Medications Medications (Trade) Dose Ordered Sig/Dario Route PRN Reason Start Time Stop Time Status Last Admin Dose Admin Al Hydrox/Mg Hydrox/Simethicone (Mylanta) 30 ml Q4HP PRN PO HEARTBURN/INDIGESTION 07/23/19 16:30 Albuterol Sulfate (Proventil Neb) 2.5 mg RQ6H NEB 07/24/19 20:00 08/05/19 14:37 Aripiprazole (AbiLIFY) 2 mg BID PO 08/03/19 09:00 08/06/19 08:07 Aripiprazole (AbiLIFY) 2.5 mg DAILY@1800 PO 07/31/19 18:00 08/03/19 10:25 DC 08/02/19 17:50 Aripiprazole (AbiLIFY) 2.5 mg QHS PO 07/30/19 21:00 07/31/19 10:00 DC 07/30/19 20:07 Artificial Tears (Akwa Tears) 2 drop TIDP PRN OU DRY EYES 07/29/19 13:15 08/06/19 08:07 Ciprofloxacin (Cipro) 500 mg BID@06,18 PO 07/31/19 06:00 08/06/19 05:29 Cyclobenzaprine HCl (Flexeril) 10 mg Q8HP PRN PO discomfort 07/24/19 11:00 07/25/19 13:34 Diphenhydramine HCl (Benadryl) 25 mg QHS PRN PO EPS from Haldol 07/28/19 20:00 Fluticasone Propionate (Flovent Hfa 220mcg) 2 puff BID INH 07/24/19 09:00 08/06/19 08:06 Haloperidol (Haldol) 5 mg QHS PO 07/28/19 21:00 07/30/19 10:35 DC 07/28/19 21:20 Hydroxyzine HCl (Atarax) 10 mg TIDP PRN PO ANXIETY/AGITATION 07/24/19 11:00 07/24/19 20:35 Ibuprofen (Advil) 400 mg Q6HP PRN PO PAIN 07/23/19 16:30 08/05/19 17:00 Magnesium Hydroxide (Milk Of Magnesia) 30 ml DAILYPRN PRN PO CONSTIPATION 07/23/19 16:30 Meclizine HCl (Antivert) 25 mg TIDP PRN PO DIZZINESS 07/24/19 11:00 08/06/19 05:29 Miscellaneous (Unresolved Clarification Entry) SEE LABEL COMMENTS DAILY XX 08/06/19 09:00 Olanzapine (ZyPREXA) 5 mg Q4HP PRN PO AGITATION 07/23/19 16:30 Paliperidone (Invega) 3 mg QHS PO 07/25/19 21:00 07/28/19 19:52 DC 07/27/19 21:14 Phenyleph/Shark Oil/Min Oil/Petrol (Preparation H Ointment) APPLY TO HEMORRHOIDAL AREA QID PRN TOP itchiness 07/29/19 20:30 08/02/19 08:51 Risperidone (RisperDAL) 4 mg QHS PO 07/24/19 21:00 07/25/19 10:13 DC Senna (Senokot) 1 tab QHS PRN PO CONSTIPATION 07/24/19 11:00 08/06/19 08:07 Trazodone HCl (Desyrel) 50 mg QHSP PRN PO INSOMNIA 07/23/19 16:30 Allergies Coded Allergies: azithromycin (Unverified Allergy, Mild, loose stools , 07/29/19) ARNAZA FUNEZ DO Aug 06, 2019 9:08 am
[2019-08-06] MEDS ORDERED: TUBERCULIN PPD 5 UNITS/0.1 ML ID ONE ×2 (09:30→10:00)
[2019-08-06] MEDS: IBUPROFEN 400 MG TAB PO PRN (09:42)
[2019-08-06 16:37] VITALS: BP 119/58
[2019-08-07] MEDS: ALBUTEROL SULFATE 2.5 MG/0.5 ML INH NEB SOLN NEB SCH ×4 (02:00→20:00)
[2019-08-07] MEDS: CIPROFLOXACIN 500 MG TAB PO SCH (05:22)
[2019-08-07] MEDS: MECLIZINE 25 MG TABLET PO PRN ×3 (05:22→23:01)
[2019-08-07 06:07] VITALS: BP 122/88
[2019-08-07] MEDS: FLUTICASONE HFA 220 MCG 12 GM INHALER (FLOVENT) INH SCH ×2 (09:01→20:09)
--- NOTE | 2019-08-07 09:05 | MHIPNPDOC ---
[facility] Progress Note Progress Note DATE OF SERVICE: 08/07/19 HISTORY: Patient is a 68 -year-old , female, with a presumed history of Schizophrenia and several past psych admissions in [place] who was seen by Dr. Kayli webster regarding consult on medical floor after pt was brought to the hospital due to being found talking to the wall in her apartment lobby, paranoid, and talking of yazidi things. Pt's daughter, who pt lives with reported pt is not at her baseline and had a recent med change outpatient but does not know what medication pt is currently taking. Per ED, asked interviewer if they were aware of the poison and that they shouldn't talk about it. Pt also stated in ED that her daughter was here on the cold floor and that she could not remember where she lived then stopped talking and cooperative with interview. Pt seen with 1:1 sitter present due to being blind in her room sitting in a chair with a blanket over her head appearing irritated and anxious stating "my daughter keeps putting me in hospitals for no reason." She is very disorganized and tangential. She is a very poor historian. Denies knowing why she here. Talks and refers to hospitals in [place] where [place] moved from like she still lives there then about [place] and states she lives here now. States she wants to go home. States she doesn't know if she likes risperdal or vistaril and had been taking one of them and not the other, most likely vistaril she was taking consider she is psychotic now most likely due to med noncompliance. Pt rambles on from one topic to the next with pressured speech making her very difficult to understand. Pt is a very poor historian and history gathered from previous hospital records. VITAL SIGNS: See below. NEW TEST RESULTS: See below. CURRENT MEDICATIONS: See below. MENTAL STATUS EXAMINATION: General Appearance: unkempt, appears stated age, hospital scrubs/clothing Build: average Demeanor: cooperative Eye Contact: poor Activity: calm Behavior: cooperative Speech: reg rate, spontaneous, normal volume Mood: more euthymic and full range Mood "I want to go home" Affect: more appropriate and euthymic Thought Process: more linear and logical, concrete religiosity Thought Content (Delusions): less paranoia regarding antipsychotic medications, religiosity Thought Content (Other): less preoccupied, religiosity Thought Content (Aggressive): none reported Perception (Hallucinations): auditory, visual (little people, angels, states she a messenger for God" Perception (Other): none reported Cognition (Impairment of): improved attention/concentration, ability to abstract Cognition(Intelligence Est.): average Oriented: Awake, Alert, Oriented times three Insight: poor Judgment: Poor Psychosis: improving Associations, Abstract Thinking, Psychotic Perceptions DIAGNOSES: Paranoid Schizophrenia ASSESSMENT:Per nursing pt did well last night after abilify changed to 4mg qhs. Pt seen with sitter present in her room asking about going home today stating "I don't do anything wrong... I don't hurt people... sometimes I see little people and I see angels b/c I'm a messenger of God". Attempted to advise pt that she is not being discharged home today due to not being fully stable as most likely if she were d/c home she probably have to come back for psychosis. Pt upset stating she wanted to be home for [place] b/c her daughter is making a big meal. Pt refusing to me any further and stated she was going to have her daughter come to the hospital "right now" to talk to me about d/c today. She is compliant on her abilify 2mg bid. She continues to be paranoia regarding meds with somatization and religiously preoccupied thoughts. She is having improvement in orientation to time, place, and who I am today. Denies SI/HI. MANAGEMENT PLAN: continue plan. change abilify to 2mg bid Medications: abilify 4mg qhs vistaril 10mg q4hr prn anxiety zyprexa 10mg q4hr prn agitation TIME SPENT: 30 minutes. Vital Signs Vital Signs Date Time Temp Pulse Resp B/P (MAP) Pulse Ox O2 Delivery O2 Flow Rate FiO2 08/07/19 06:07 97.9 75 16 122/88 (99) 08/04/19 08:41 Room Air Current Medications Current Medications Medications (Trade) Dose Ordered Sig/Dario Route PRN Reason Start Time Stop Time Status Last Admin Dose Admin Al Hydrox/Mg Hydrox/Simethicone (Mylanta) 30 ml Q4HP PRN PO HEARTBURN/INDIGESTION 07/23/19 16:30 Albuterol Sulfate (Proventil Neb) 2.5 mg RQ6H NEB 07/24/19 20:00 08/06/19 20:44 Aripiprazole (AbiLIFY) 2 mg BID PO 08/03/19 09:00 08/06/19 09:27 DC 08/06/19 08:07 Aripiprazole (AbiLIFY) 2.5 mg DAILY@1800 PO 07/31/19 18:00 08/03/19 10:25 DC 08/02/19 17:50 Aripiprazole (AbiLIFY) 2.5 mg QHS PO 07/30/19 21:00 07/31/19 10:00 DC 07/30/19 20:07 Aripiprazole (AbiLIFY) 4 mg QHS PO 08/06/19 21:00 08/06/19 20:14 Artificial Tears (Akwa Tears) 2 drop TIDP PRN OU DRY EYES 07/29/19 13:15 08/06/19 08:07 Ciprofloxacin (Cipro) 500 mg BID@06,18 PO 07/31/19 06:00 08/07/19 05:59 DC 08/07/19 05:22 Cyclobenzaprine HCl (Flexeril) 10 mg Q8HP PRN PO discomfort 07/24/19 11:00 07/25/19 13:34 Diphenhydramine HCl (Benadryl) 25 mg QHS PRN PO EPS from Haldol 07/28/19 20:00 Fluticasone Propionate (Flovent Hfa 220mcg) 2 puff BID INH 07/24/19 09:00 08/06/19 20:14 Haloperidol (Haldol) 5 mg QHS PO 07/28/19 21:00 07/30/19 10:35 DC 07/28/19 21:20 Hydroxyzine HCl (Atarax) 10 mg TIDP PRN PO ANXIETY/AGITATION 07/24/19 11:00 07/24/19 20:35 Ibuprofen (Advil) 400 mg Q6HP PRN PO PAIN 07/23/19 16:30 08/06/19 09:42 Magnesium Hydroxide (Milk Of Magnesia) 30 ml DAILYPRN PRN PO CONSTIPATION 07/23/19 16:30 Meclizine HCl (Antivert) 25 mg TIDP PRN PO DIZZINESS 07/24/19 11:00 08/07/19 05:22 Miscellaneous (Unresolved Clarification Entry) SEE LABEL COMMENTS DAILY XX 08/06/19 09:00 08/07/19 08:08 DC Miscellaneous (Unresolved Clarification Entry) SEE LABEL COMMENTS DAILY XX 08/07/19 09:00 Non-Formulary Medication ( See Comment Field Below ) SEE COMMENTS SECTION 1T@10 ID 08/08/19 10:00 08/09/19 09:59 UNV Non-Formulary Medication ( See Comment Field Below ) SEE LABEL COMMENTS DAILY XX 08/06/19 09:00 Cancel Olanzapine (ZyPREXA) 5 mg Q4HP PRN PO AGITATION 07/23/19 16:30 Paliperidone (Invega) 3 mg QHS PO 07/25/19 21:00 07/28/19 19:52 DC 07/27/19 21:14 Phenyleph/Shark Oil/Min Oil/Petrol (Preparation H Ointment) APPLY TO HEMORRHOIDAL AREA QID PRN TOP itchiness 07/29/19 20:30 08/02/19 08:51 Risperidone (RisperDAL) 4 mg QHS PO 07/24/19 21:00 07/25/19 10:13 DC Senna (Senokot) 1 tab QHS PRN PO CONSTIPATION 07/24/19 11:00 08/06/19 08:07 Trazodone HCl (Desyrel) 50 mg QHSP PRN PO INSOMNIA 07/23/19 16:30 Allergies Coded Allergies: azithromycin (Unverified Allergy, Mild, loose stools , 07/29/19) ARANZA FUNEZ DO Aug 07, 2019 9:05 am
[2019-08-07] MEDS: POLYVINYL ALCOHOL OPHTH SOLN 15 ML(LIQUITEARS) OU PRN (14:00)
[2019-08-07 16:11] VITALS: BP 110/56
[2019-08-07] MEDS: IBUPROFEN 400 MG TAB PO PRN (19:28)
[2019-08-07] MEDS: ARIPiprazole 2 MG TAB PO SCH (20:09)
[2019-08-08] MEDS: ALBUTEROL SULFATE 2.5 MG/0.5 ML INH NEB SOLN NEB SCH ×4 (02:00→20:00)
[2019-08-08 06:24] VITALS: BP 100/54
[2019-08-08] MEDS: POLYVINYL ALCOHOL OPHTH SOLN 15 ML(LIQUITEARS) OU PRN ×2 (08:07→13:10)
[2019-08-08] MEDS: FLUTICASONE HFA 220 MCG 12 GM INHALER (FLOVENT) INH SCH ×2 (08:07→20:01)
[2019-08-08] MEDS ORDERED: PPD DOCUMENTATION ENTRY MISC XX ONE (10:00)
[2019-08-08] MEDS ORDERED: PPD DOCUMENTATION ENTRY MISC ID SCH (10:00)
[2019-08-08] MEDS: IBUPROFEN 400 MG TAB PO PRN (11:49)
[2019-08-08] MEDS: MECLIZINE 25 MG TABLET PO PRN (13:10)
[2019-08-08 16:33] VITALS: BP 123/89
[2019-08-08] MEDS: ARIPiprazole 2 MG TAB PO SCH (20:01)
[2019-08-09] MEDS: MECLIZINE 25 MG TABLET PO PRN ×3 (01:26→18:43)
[2019-08-09] MEDS: ALBUTEROL SULFATE 2.5 MG/0.5 ML INH NEB SOLN NEB SCH ×4 (01:27→20:00)
[2019-08-09 06:16] VITALS: BP 124/57
[2019-08-09] MEDS: POLYVINYL ALCOHOL OPHTH SOLN 15 ML(LIQUITEARS) OU PRN ×2 (09:17→18:43)
[2019-08-09] MEDS: FLUTICASONE HFA 220 MCG 12 GM INHALER (FLOVENT) INH SCH ×2 (09:17→21:00)
--- NOTE | 2019-08-09 09:18 | MHIPNPDOC ---
[facility] Progress Note Progress Note DATE OF SERVICE: 08/09/19 HISTORY: Patient is a 68 -year-old , female, with a presumed history of Schizophrenia and several past psych admissions in [place] who was seen by Dr. Kayli webster regarding consult on medical floor after pt was brought to the hospital due to being found talking to the wall in her apartment lobby, paranoid, and talking of latter-day things. Pt's daughter, who pt lives with reported pt is not at her baseline and had a recent med change outpatient but does not know what medication pt is currently taking. Per ED, asked interviewer if they were aware of the poison and that they shouldn't talk about it. Pt also stated in ED that her daughter was here on the cold floor and that she could not remember where she lived then stopped talking and cooperative with interview. Pt seen with 1:1 sitter present due to being blind in her room sitting in a chair with a blanket over her head appearing irritated and anxious stating "my daughter keeps putting me in hospitals for no reason." She is very disorganized and tangential. She is a very poor historian. Denies knowing why she here. Talks and refers to hospitals in [place] where she moved from like she still lives there then about [place] and states she lives here now. States she wants to go home. States she doesn't know if she likes risperdal or vistaril and had been taking one of them and not the other, most likely vistaril she was taking consider she is psychotic now most likely due to med noncompliance. Pt rambles on from one topic to the next with pressured speech making her very difficult to understand. Pt is a very poor historian and history gathered from previous hospital records. VITAL SIGNS: See below. NEW TEST RESULTS: See below. CURRENT MEDICATIONS: See below. MENTAL STATUS EXAMINATION: General Appearance: unkempt, appears stated age, hospital scrubs/clothing Build: average Demeanor: cooperative Eye Contact: poor Activity: calm Behavior: cooperative Speech: reg rate, spontaneous, normal volume Mood: more euthymic and full range Mood "I want to go home" Affect: more appropriate and euthymic Thought Process: more linear and logical, concrete religiosity Thought Content (Delusions): less paranoia regarding antipsychotic medications, religiosity Thought Content (Other): less preoccupied, religiosity Thought Content (Aggressive): none reported Perception (Hallucinations): auditory, visual (little people, angels, states she a messenger for God" Perception (Other): none reported Cognition (Impairment of): improved attention/concentration, ability to abstract Cognition(Intelligence Est.): average Oriented: Awake, Alert, Oriented times three Insight: poor Judgment: Poor Psychosis: improving Associations, Abstract Thinking, Psychotic Perceptions DIAGNOSES: Paranoid Schizophrenia ASSESSMENT:Per nursing pt did well last night and yesterday since abilify changed to 4mg qhs. Pt seen with sitter present in her room asking about going home today stating "I've been making snowflakes" and showed me one. Asked the pt about when she hears God and states she hears him all day and talks, talks with her hands, sings to him (and did start singing with hands up in her room when seen) when and wherever she wants to. States she likes to go to all churches, Jew the most, yet still has to find one here. States she takes ibuprofen for her shoulders and head as is "calms my racing thoughts." Pt is improved but the biggest concern regarding pt is that she lives alone and will most likely be readmitted for psychosis due to continual communication with God daily that is bizarre and beyond that of a normally highly latter-day individual as she is very preoccupied with communicating with God at any time and any where verbal and thru her hands. She is compliant on her abilify 4mg qhs. She continues to be paranoia regarding meds with somatization and religiously preoccupied thoughts. She is having improvement in orientation to time, place, and who I am today. Denies SI/HI. MANAGEMENT PLAN: continue plan. referred to [facility]. Medications: abilify 4mg qhs vistaril 10mg q4hr prn anxiety zyprexa 10mg q4hr prn agitation TIME SPENT: 30 minutes. Vital Signs Vital Signs Date Time Temp Pulse Resp B/P (MAP) Pulse Ox O2 Delivery O2 Flow Rate FiO2 08/09/19 06:16 98.4 71 14 124/57 (79) 08/04/19 08:41 Room Air Current Medications Current Medications Medications (Trade) Dose Ordered Sig/Dario Route PRN Reason Start Time Stop Time Status Last Admin Dose Admin Al Hydrox/Mg Hydrox/Simethicone (Mylanta) 30 ml Q4HP PRN PO HEARTBURN/INDIGESTION 07/23/19 16:30 Albuterol Sulfate (Proventil Neb) 2.5 mg RQ6H NEB 07/24/19 20:00 08/08/19 14:19 Aripiprazole (AbiLIFY) 2 mg BID PO 08/03/19 09:00 08/06/19 09:27 DC 08/06/19 08:07 Aripiprazole (AbiLIFY) 2.5 mg DAILY@1800 PO 07/31/19 18:00 08/03/19 10:25 DC 08/02/19 17:50 Aripiprazole (AbiLIFY) 2.5 mg QHS PO 07/30/19 21:00 07/31/19 10:00 DC 07/30/19 20:07 Aripiprazole (AbiLIFY) 4 mg QHS PO 08/06/19 21:00 08/08/19 20:01 Artificial Tears (Akwa Tears) 2 drop TIDP PRN OU DRY EYES 07/29/19 13:15 08/08/19 13:10 Ciprofloxacin (Cipro) 500 mg BID@06,18 PO 07/31/19 06:00 08/07/19 05:59 DC 08/07/19 05:22 Cyclobenzaprine HCl (Flexeril) 10 mg Q8HP PRN PO discomfort 07/24/19 11:00 07/25/19 13:34 Diphenhydramine HCl (Benadryl) 25 mg QHS PRN PO EPS from Haldol 07/28/19 20:00 Fluticasone Propionate (Flovent Hfa 220mcg) 2 puff BID INH 07/24/19 09:00 08/08/19 20:01 Haloperidol (Haldol) 5 mg QHS PO 07/28/19 21:00 07/30/19 10:35 DC 07/28/19 21:20 Hydroxyzine HCl (Atarax) 10 mg TIDP PRN PO ANXIETY/AGITATION 07/24/19 11:00 07/24/19 20:35 Ibuprofen (Advil) 400 mg Q6HP PRN PO PAIN 07/23/19 16:30 08/08/19 11:49 Magnesium Hydroxide (Milk Of Magnesia) 30 ml DAILYPRN PRN PO CONSTIPATION 07/23/19 16:30 Meclizine HCl (Antivert) 25 mg TIDP PRN PO DIZZINESS 07/24/19 11:00 08/09/19 01:26 Miscellaneous (Unresolved Clarification Entry) SEE LABEL COMMENTS DAILY XX 08/06/19 09:00 08/07/19 08:08 DC Miscellaneous (Unresolved Clarification Entry) SEE LABEL COMMENTS DAILY XX 08/07/19 09:00 08/07/19 09:02 DC Non-Formulary Medication ( See Comment Field Below ) SEE COMMENTS SECTION 1T@10 ID 08/08/19 10:00 08/09/19 09:59 UNV Non-Formulary Medication ( See Comment Field Below ) SEE LABEL COMMENTS DAILY XX 08/06/19 09:00 Cancel Olanzapine (ZyPREXA) 5 mg Q4HP PRN PO AGITATION 07/23/19 16:30 Paliperidone (Invega) 3 mg QHS PO 07/25/19 21:00 07/28/19 19:52 DC 07/27/19 21:14 Phenyleph/Shark Oil/Min Oil/Petrol (Preparation H Ointment) APPLY TO HEMORRHOIDAL AREA QID PRN TOP itchiness 07/29/19 20:30 08/02/19 08:51 Risperidone (RisperDAL) 4 mg QHS PO 07/24/19 21:00 07/25/19 10:13 DC Senna (Senokot) 1 tab QHS PRN PO CONSTIPATION 07/24/19 11:00 08/06/19 08:07 Trazodone HCl (Desyrel) 50 mg QHSP PRN PO INSOMNIA 07/23/19 16:30 Allergies Coded Allergies: azithromycin (Unverified Allergy, Mild, loose stools , 07/29/19) ARANZA FUNEZ DO Aug 09, 2019 9:18 am
[2019-08-09 16:00] VITALS: BP 115/53
[2019-08-09] MEDS: ARIPiprazole 2 MG TAB PO SCH (20:10)
[2019-08-10] MEDS: ALBUTEROL SULFATE 2.5 MG/0.5 ML INH NEB SOLN NEB SCH ×4 (01:22→20:00)
[2019-08-10] MEDS: MECLIZINE 25 MG TABLET PO PRN ×3 (02:42→19:56)
[2019-08-10 06:32] VITALS: BP 138/62
[2019-08-10] MEDS: POLYVINYL ALCOHOL OPHTH SOLN 15 ML(LIQUITEARS) OU PRN (08:15)
[2019-08-10] MEDS: FLUTICASONE HFA 220 MCG 12 GM INHALER (FLOVENT) INH SCH ×2 (08:31→20:01)
[2019-08-10] MEDS: IBUPROFEN 400 MG TAB PO PRN ×2 (09:52→20:01)
[2019-08-10] MEDS: MULTIVITAMINS/MINERALS THERAP 1 TAB PO SCH (13:25)
[2019-08-10] MEDS: CYCLOBENZAPRINE 10 MG TAB PO PRN (13:45)
--- NOTE | 2019-08-10 14:17 | MHIPN ---
DATE: 08/10/2019 VITAL SIGNS: Temperature 97.1, pulse 62, respirations 14, blood pressure 138/62. CURRENT MEDICATIONS: - Abilify 4 mg at bedtime. HISTORY OF PRESENT ILLNESS: This is a 68-year-old white female with history of schizophrenia treated by Dr. Vee. Patient had decompensated prior to admission with evidence of thought disorder. Patient was religiously preoccupied. Patient had been on Invega and then Haldol. She claims she had side effects on them, specifically headaches. Dr. Vee switched her to Abilify with good effect. She is on the 4 mg dose now and grudgingly agrees to increase it to the 5 mg per day dosage. She is tolerating the Abilify well. Patient wants to return home. She minimizes her problems. MENTAL STATUS EXAMINATION: Patient is alert, oriented and cooperative. She is baptism. Paranoia is apparently less prominent, according to records. She denies hearing voices. Insight and judgment are fair. No cognitive deficits. Patient's mood is relatively stable until she starts talking about returning home. DIAGNOSIS: Schizophrenia, chronic, with acute decompensation. ASSESSMENT: Patient appears to be gradually responding to low dose Abilify. PLAN: Increase Abilify to 5 mg at bedtime. Continue involvement in hospital milieu.
[2019-08-10 16:03] VITALS: BP 123/59
[2019-08-10] MEDS: SENNA 8.6 MG TAB (SENOKOT) PO PRN (20:42)
[2019-08-11] MEDS: ALBUTEROL SULFATE 2.5 MG/0.5 ML INH NEB SOLN NEB SCH ×4 (02:00→20:00)
[2019-08-11] MEDS: MECLIZINE 25 MG TABLET PO PRN ×2 (04:48→12:52)
[2019-08-11 06:21] VITALS: BP 117/56
[2019-08-11] MEDS: FLUTICASONE HFA 220 MCG 12 GM INHALER (FLOVENT) INH SCH ×2 (08:27→20:14)
[2019-08-11] MEDS: POLYVINYL ALCOHOL OPHTH SOLN 15 ML(LIQUITEARS) OU PRN (08:28)
[2019-08-11] MEDS: MULTIVITAMINS/MINERALS THERAP 1 TAB PO SCH (08:30)
[2019-08-11] MEDS: CYCLOBENZAPRINE 10 MG TAB PO PRN (09:27)
[2019-08-11 16:10] VITALS: BP 112/58
[2019-08-11] MEDS: SENNA 8.6 MG TAB (SENOKOT) PO PRN (20:15)
[2019-08-12] MEDS: ALBUTEROL SULFATE 2.5 MG/0.5 ML INH NEB SOLN NEB SCH ×5 (02:00→21:49)
[2019-08-12] MEDS: MECLIZINE 25 MG TABLET PO PRN ×3 (03:16→21:00)
[2019-08-12 05:57] VITALS: BP 100/50
[2019-08-12] MEDS: POLYVINYL ALCOHOL OPHTH SOLN 15 ML(LIQUITEARS) OU PRN (08:29)
[2019-08-12] MEDS: MULTIVITAMINS/MINERALS THERAP 1 TAB PO SCH (08:29)
[2019-08-12] MEDS: CYCLOBENZAPRINE 10 MG TAB PO PRN (08:29)
[2019-08-12] MEDS: FLUTICASONE HFA 220 MCG 12 GM INHALER (FLOVENT) INH SCH ×2 (08:30→20:11)
[2019-08-12] MEDS: IBUPROFEN 400 MG TAB PO PRN (11:54)
[2019-08-12 16:31] VITALS: BP 107/58
[2019-08-12] MEDS ORDERED: ARIPiprazole 2 MG TAB PO SCH (21:00)
[2019-08-13] MEDS: ALBUTEROL SULFATE 2.5 MG/0.5 ML INH NEB SOLN NEB SCH ×2 (02:00→07:28)
[2019-08-13] MEDS: MECLIZINE 25 MG TABLET PO PRN (04:49)
[2019-08-13 05:51] VITALS: BP 107/54
[2019-08-13] MEDS: POLYVINYL ALCOHOL OPHTH SOLN 15 ML(LIQUITEARS) OU PRN (06:11)
[2019-08-13] MEDS: CYCLOBENZAPRINE 10 MG TAB PO PRN (06:12)
[2019-08-13] MEDS: MULTIVITAMINS/MINERALS THERAP 1 TAB PO SCH (08:13)
[2019-08-13] MEDS: FLUTICASONE HFA 220 MCG 12 GM INHALER (FLOVENT) INH SCH (08:14)
[2019-08-13] MEDS: IBUPROFEN 400 MG TAB PO PRN (10:20)
[2019-08-13] MEDS ORDERED: ABIL1TAB13 PO (11:07)
--- NOTE | 2019-08-13 14:23 | MHDS ---
DATE OF ADMISSION: 07/23/2019 DATE OF DISCHARGE: VITAL SIGNS: Temperature 98.0, pulse 72, respirations 18, blood pressure 107/54. LABORATORIES: CBC and differential within normal limits except for low WBC at 2.7. Serum chemistry revealed laboratories within normal limits. Urinalysis was negative for bacteria. DISCHARGE DIAGNOSIS: Schizophrenia, chronic with acute decompensation. DISCHARGE MEDICATIONS: - Abilify 2 mg two tablets daily CHIEF COMPLAINT: Psychotic decompensation. HISTORY OF PRESENT ILLNESS: This is a 68-year-old white female with a history of schizophrenia. She was seen on admission by Dr. Rich. The patient was then transferred to psychiatry where she was treated by Dr. Vee. The patient was quite paranoid at the time of admission. The patient was found talking to herself or to the wall in her apartment lobby, for example. The patient was brought in by her daughter, who reported that the patient was not at baseline. PROGRESS ON THE UNIT: The patient was treated by Dr. Vee, as mentioned above. She was initially treated with Risperdal, which was then switched to Invega. She was given a dose of Invega 3 mg. Psychotic symptoms persisted. She was switched to Haldol 5 mg at night also without benefit. The patient was then switched to Abilify by Dr. Vee with a much better clinical response. Her psychotic symptoms appeared to resolve gradually. Her paranoia gradually resolved. Her appetite and sleep patterns were good. Her mood appeared more stable. Her dose was increased to 4 mg, which she tolerated well. She complained of some dizziness, which was minimal. When her dose was increased to 5 mg, she complained of headaches. The patient does have a history of being quite somatic with various somatic complaints about any psychotropics of any kind. In any event, she was satisfied with the 4 mg per day dosage, which did seem to be therapeutic for her. She appeared to tolerate it reasonably well. The patient appeared to be approaching baseline mental status functioning. demand planner contacted her daughter, who was agreeable to take responsibility for the patient. The patient does have a safe living arrangement where her medications are monitored. MENTAL STATUS EXAMINATION: On discharge: The patient is alert, oriented and cooperative. Affect was much brighter. She was not depressed. No signs of mohit. Paranoia was minimal. She denied hearing any voices. She is religiously preoccupied, but this appears to be baseline. No signs of any cognitive deficits. Insight and judgment appear fair. No signs of dangerousness. At the time of discharge, cognitive functions appeared intact. ASSESSMENT: The patient was on multiple psychotropic trials. She appeared to do best on Abilify at a low dosage. I attempted to increase her dose to 5 mg per day, but she was oppositional so the dose was reduced back to 4 mg per day. The patient's family and landlord will monitor her medication compliance. PLAN: Discharge home to the community. [facility]patient followup. [facility]
== END 2019-08-13 13:20 | disposition home or self-care (01) | DRG 885 ==
LOC: M PSY 16:25
PROVIDERS: ADMIT Psychiatry & Neurology Addiction Medicine; ATTEND Psychiatry & Neurology Psychiatry
DX: F20.5 Residual schizophrenia (principal); H54.3 Unqualified visual loss, both eyes; J45.909 Unspecified asthma, uncomplicated; J44.9 Chronic obstructive pulmonary disease, unspecified; Z91.410 Personal history of adult physical and sexual abuse; Z79.899 Other long term (current) drug therapy; F20.0 Paranoid schizophrenia; R79.89 Other specified abnormal findings of blood chemistry; Z91.14 Patient's other noncompliance with medication regimen; Z88.1 Allergy status to other antibiotic agents

== ENCOUNTER 2019-08-22 16:40 | Inpatient (IN) | payer MEDICARE, MEDICAID, OTHER ==
[~2019-08-22] VITALS: Ht 162.6 cm; Wt 58.5 kg
[~2019-08-22 16:40] MED LIST changes: +ABIL1TAB13 PO
--- NOTE | 2019-08-22 17:38 | REPVR ---
PROCEDURE INFORMATION: Exam: CT Maxillofacial Without Contrast Exam date and time: 08/22/2019 5:27 PM Age: 68 years old Clinical indication: Injury or trauma; Fall; Initial encounter; Blunt trauma (contusions or hematomas); Cheek bone and nose; Right TECHNIQUE: Imaging protocol: Computed tomography images of the face without contrast. Radiation optimization: All CT scans at this facility use at least one of these dose optimization techniques: automated exposure control; mA and/or kV adjustment per patient size (includes targeted exams where dose is matched to clinical indication); or iterative reconstruction. COMPARISON: No relevant prior studies available. FINDINGS: Orbits: Orbits are normal. Globes are unremarkable. Sinuses: Normal. No air-fluid levels. Bones/joints: No acute fracture. Soft tissues: Mild left malar soft tissue swelling is present. IMPRESSION: No acute fracture. Electronically signed by: Ranulfo Graham On 08/22/2019 17:38:21 PM
--- NOTE | 2019-08-22 17:41 | REPVR ---
PROCEDURE INFORMATION: Exam: CT Head Without Contrast Exam date and time: 08/22/2019 5:27 PM Age: 68 years old Clinical indication: Injury or trauma; Fall; Initial encounter; Blunt trauma (contusions or hematomas) TECHNIQUE: Imaging protocol: Computed tomography of the head without contrast. Radiation optimization: All CT scans at this facility use at least one of these dose optimization techniques: automated exposure control; mA and/or kV adjustment per patient size (includes targeted exams where dose is matched to clinical indication); or iterative reconstruction. COMPARISON: CT Head without contrast 07/22/2019 5:07 PM FINDINGS: Brain: No acute intracranial hemorrhage, cerebral edema, or midline shift. Ventricles: No hydrocephalus. Bones/joints: No acute fracture. Sinuses: No acute sinusitis. Mastoid air cells: Visualized mastoid air cells are well aerated. Soft tissues: Left periorbital and malar soft tissue swelling is present. IMPRESSION: No acute intracranial abnormality. Electronically signed by: Ranulfo Graham On 08/22/2019 17:41:30 PM
--- NOTE | 2019-08-22 17:45 | REPVR ---
PROCEDURE INFORMATION: Exam: CT Cervical Spine Without Contrast Exam date and time: 08/22/2019 5:27 PM Age: 68 years old Clinical indication: Injury or trauma; Fall; Initial encounter; Blunt trauma TECHNIQUE: Imaging protocol: Computed tomography images of the cervical spine without contrast. Radiation optimization: All CT scans at this facility use at least one of these dose optimization techniques: automated exposure control; mA and/or kV adjustment per patient size (includes targeted exams where dose is matched to clinical indication); or iterative reconstruction. COMPARISON: No relevant prior studies available. FINDINGS: Vertebrae: Bone mineralization is decreased, suggestive of osteopenia. There is no acute fracture. Discs/Spinal canal/Neural foramina: Mild degenerative changes of the cervical spine are present. There is no significant spinal canal stenosis. Severe left and moderate right neural foraminal narrowing is noted at C5-C6 due to uncinate spurring. Soft tissues: Unremarkable. Lungs: Lung apices are normal. Vasculature: Atherosclerotic calcifications are present at the carotid bifurcations. IMPRESSION: 1. No acute abnormality. 2. Chronic findings as discussed above. Electronically signed by: Ranulfo Graham On 08/22/2019 17:45:03 PM
--- NOTE | 2019-08-22 18:13 | REP ---
LEFT KNEE, FOUR VIEWS: KNEE: There is no evidence of an acute fracture, dislocation or intrinsic bone disease. IMPRESSION: No fracture or dislocation. Electronically Signed by Guillermo Pond MD 08/22/2019 08:06 P
[2019-08-22 18:14] VITALS: O2SAT 95
--- NOTE | 2019-08-22 18:14 | REP ---
LEFT HAND, FOUR VIEWS: Four views of the left hand are performed. There may be a nondisplaced fracture at the base of the 5th middle phalanx. There is no acute fracture or dislocation seen. There is no intrinsic osseous pathology. IMPRESSION: Possible nondisplaced fracture base of 5th middle phalanx. Electronically Signed by Guillermo Pond MD 08/22/2019 08:06 P
[2019-08-22] MEDS ORDERED: IBUPROFEN 600 MG TAB PO ONE (18:15)
[2019-08-22 20:47] LABS: HEMATOCRIT 40.3 % (36.0-47.0); HEMOGLOBIN 13.1 g/dl (12.0-15.5); MEAN CORPUSCULAR HEMOGLOBIN 28.2 pg (27.0-33.0); MEAN CORPUSCULAR HGB CONC 32.5 g/dl (32.0-36.5); MEAN CORPUSCULAR VOLUME 86.9 fl (80.0-96.0); PLATELET COUNT, AUTOMATED 189 10^3/uL (150-450); RED BLOOD COUNT 4.64 10^6/uL (4.00-5.40); WHITE BLOOD COUNT 7.2 10^3/uL (4.0-10.0)
[2019-08-22 21:23] LABS: ACETAMINOPHEN LEVEL < 2.0 UG/ML (10.0-30.0); ALBUMIN 4.2 GM/DL (3.2-5.2); ALT/SGPT 22 U/L (12-78); BILIRUBIN,DIRECT 0.2 MG/DL (0.0-0.2); BILIRUBIN,TOTAL 0.5 MG/DL (0.2-1.0); BLOOD UREA NITROGEN 14 MG/DL (7-18); CALCIUM LEVEL 9.2 MG/DL (8.8-10.2); CARBON DIOXIDE LEVEL 22 MEQ/L (21-32); CHLORIDE LEVEL 104 MEQ/L (98-107); CREATININE FOR GFR 0.71 MG/DL (0.55-1.30); ETHYL ALCOHOL (ETHANOL) < 0.003 % (0.000-0.010); GLOMERULAR FILTRATION RATE > 60.0 (>45); GLUCOSE, FASTING 78 MG/DL (70-100); POTASSIUM SERUM 3.4 MEQ/L (3.5-5.1); SALICYLATE LEVEL < 1.7 MG/DL (5.0-30.0); SODIUM LEVEL 139 MEQ/L (136-145); TOTAL PROTEIN 7.6 GM/DL (6.4-8.2)
[2019-08-22] MEDS ORDERED: ABIL1TAB13 PO (21:27)
[2019-08-22] MEDS ORDERED: IBUP-1764 PO (21:27)
[2019-08-22] MEDS ORDERED: POTASSIUM CHLORIDE 10 MEQ SR TABLET PO ONE (21:30)
[2019-08-22 22:26] LABS: AMPHETAMINES LEVEL URINE NEGATIVE (NEGATIVE); BARBITURATES URINE NEGATIVE (NEGATIVE); BENZODIAZEPINES URINE NEGATIVE (NEGATIVE); CANNABINOIDS URINE NEGATIVE (NEGATIVE); COCAINE METABOLITE URINE NEGATIVE (NEGATIVE); METHADONE URINE NEGATIVE (NEGATIVE); OPIATES URINE NEGATIVE (NEGATIVE); PHENCYCLIDINE URINE NEGATIVE (NEGATIVE)
[2019-08-22] MEDS ORDERED: MOM 30ML SUSPENSION UDC PO PRN (23:15)
[2019-08-22] MEDS ORDERED: ACETAMINOPHEN TAB 650MG DOSE (2X325MG) PO PRN (23:15)
[2019-08-22] MEDS ORDERED: MAALOX 30 ML SUSP *UDC PO PRN (23:15)
[2019-08-22] MEDS ORDERED: MECLIZINE 25 MG TABLET PO ONE (23:45)
[2019-08-23] MEDS ORDERED: OLANZapine ORAL DISINTEGRATING TAB 5MG PO ONE (01:30)
[2019-08-23] MEDS ORDERED: OLANZapine ORAL DISINTEGRATING TAB 5MG PO PRN (09:00)
[2019-08-23 10:02] VITALS: BP 111/57
[2019-08-23] MEDS: IBUPROFEN 400 MG TAB PO PRN ×3 (10:55→20:16)
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
[2019-08-23 15:49] VITALS: BP 108/57
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
[2019-08-23] MEDS: FLUTICASONE HFA 220 MCG 12 GM INHALER (FLOVENT) INH PRN (16:37)
[2019-08-23] MEDS: ARIPiprazole 2 MG TAB PO SCH (20:13)
[2019-08-24] MEDS: IBUPROFEN 400 MG TAB PO PRN ×4 (04:55→20:32)
[2019-08-24] MEDS: MECLIZINE 25 MG TABLET PO PRN ×2 (04:55→15:44)
[2019-08-24] MEDS: ALBUTEROL SULFATE 2.5 MG/0.5 ML INH NEB SOLN NEB PRN (05:43)
[2019-08-24 06:31] VITALS: BP 94/47
[2019-08-24 08:01] VITALS: BP 94/47
[2019-08-24] MEDS: DOCUSATE SODIUM 100 MG CAP PO SCH ×2 (10:49→20:31)
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
--- NOTE | 2019-08-24 11:43 | IPNPDOC ---
Text Note Date of Service The patient was seen on 08/24/19. NOTE Pt was seen laying in bed this morning. She continues to be very mistrustful of people getting too close to her. She denied any BENAVIDES or pain over the L side of the face, L arm, hand, knee or foot. Pt reported she slept through the night and feels 'alright' this morning. She has been taking the medications as Rx by [facility]. She wants to be discharged [facility], blames her daughter for her admission. She disagrees that she has not been able to care for herself in the home and she denied throwing herself down the stairs or purposefully slamming her hand. When asked about those events, pt becomes distressed and asks to be left alone. I spoke with Dr. Vee and I appreciate/agree with her assessment that pt would be unsafe living independently at this time due to her recent history of self- harm (?suicide attempt), non-compliance with medication, reported hallucinations and her family's inability to care for her in her severely mentally deteriorated state. Further, I agree with Dr. Vee that pt is high risk for repeated self- harm and suicide attempt; Pt will remain inpatient for several days while she is stabilized and her alf care and needs are assessed. Medicine will sign off at this time. Please re-consult as needed. VS,Fishbone, I+O VS, Fishbone, I+O Vital Signs Date Time Temp Pulse Resp B/P (MAP) Pulse Ox O2 Delivery O2 Flow Rate FiO2 08/24/19 08:01 99.1 62 18 94/47 (63) 08/24/19 06:31 Room Air 08/23/19 10:02 98 ALEXX VALLEJO PA-C Aug 24, 2019 11:43
[2019-08-24] MEDS: PREPARATION H OINTMENT (HEMORRHOID) PR PRN (15:44)
[2019-08-24 15:54] VITALS: BP 114/79
[2019-08-24] MEDS: diphenhydrAMINE 25 MG CAP PO PRN ×2 (16:26→22:03)
[2019-08-24] MEDS: ARIPiprazole 2 MG TAB PO SCH (20:31)
[2019-08-24] MEDS: FLUTICASONE HFA 220 MCG 12 GM INHALER (FLOVENT) INH PRN (22:03)
[2019-08-25] MEDS: diphenhydrAMINE 25 MG CAP PO PRN ×3 (06:08→14:49)
[2019-08-25] MEDS: IBUPROFEN 400 MG TAB PO PRN ×3 (06:08→18:32)
[2019-08-25 06:43] VITALS: BP 115/75
[2019-08-25] MEDS: MECLIZINE 25 MG TABLET PO PRN ×2 (07:43→15:32)
[2019-08-25] MEDS: FLUTICASONE HFA 220 MCG 12 GM INHALER (FLOVENT) INH PRN ×2 (07:43→21:58)
[2019-08-25] MEDS: DOCUSATE SODIUM 100 MG CAP PO SCH ×3 (08:03→22:29)
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
[2019-08-25] MEDS: MULTIVITAMINS/MINERALS THERAP 1 TAB PO SCH (11:39)
[2019-08-25] MEDS: POLYVINYL ALCOHOL OPHTH SOLN 15 ML(LIQUITEARS) OU PRN (15:32)
[2019-08-25 16:55] VITALS: BP 127/61
[2019-08-25] MEDS: ARIPiprazole 2 MG TAB PO SCH (20:03)
[2019-08-25 20:53] VITALS: BP 131/61
[2019-08-25] MEDS: CEPACOL LOZENGE PO PRN (22:11)
[2019-08-26] MEDS: IBUPROFEN 400 MG TAB PO PRN ×3 (06:24→20:01)
[2019-08-26] MEDS: MECLIZINE 25 MG TABLET PO PRN ×2 (06:24→18:48)
[2019-08-26 06:44] VITALS: BP 116/75
[2019-08-26] MEDS: FLUTICASONE HFA 220 MCG 12 GM INHALER (FLOVENT) INH PRN (08:54)
[2019-08-26] MEDS: MULTIVITAMINS/MINERALS THERAP 1 TAB PO SCH (08:54)
[2019-08-26] MEDS: DOCUSATE SODIUM 100 MG CAP PO SCH ×2 (08:55→20:00)
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
[2019-08-26] MEDS: PILL CUTTER 1 EACH XX PRN (10:27)
[2019-08-26] MEDS: OLANZapine ORAL DISINTEGRATING TAB 5MG PO PRN (10:28)
[2019-08-26] MEDS: CEPACOL LOZENGE PO PRN ×3 (10:53→18:18)
[2019-08-26] MEDS: ALBUTEROL SULFATE 2.5 MG/0.5 ML INH NEB SOLN NEB PRN (12:25)
[2019-08-26] MEDS: diphenhydrAMINE 25 MG CAP PO PRN (13:20)
[2019-08-26] MEDS: POLYVINYL ALCOHOL OPHTH SOLN 15 ML(LIQUITEARS) OU PRN (16:06)
[2019-08-26 16:20] VITALS: BP 131/61
[2019-08-26] MEDS: ARIPiprazole 2 MG TAB PO SCH (20:00)
[2019-08-27] MEDS: MECLIZINE 25 MG TABLET PO PRN ×3 (02:52→19:58)
[2019-08-27] MEDS: POLYVINYL ALCOHOL OPHTH SOLN 15 ML(LIQUITEARS) OU PRN ×3 (02:56→21:27)
[2019-08-27] MEDS: IBUPROFEN 400 MG TAB PO PRN ×3 (02:56→21:25)
[2019-08-27] MEDS: CEPACOL LOZENGE PO PRN ×6 (02:56→19:58)
[2019-08-27 06:48] VITALS: BP 107/60
[2019-08-27] MEDS: FLUTICASONE HFA 220 MCG 12 GM INHALER (FLOVENT) INH PRN ×2 (07:59→20:08)
[2019-08-27] MEDS: DOCUSATE SODIUM 100 MG CAP PO SCH ×2 (08:00→20:09)
[2019-08-27] MEDS: MULTIVITAMINS/MINERALS THERAP 1 TAB PO SCH (08:00)
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
[2019-08-27] MEDS: diphenhydrAMINE 25 MG CAP PO PRN (14:34)
[2019-08-27 17:03] VITALS: BP 126/58
[2019-08-27] MEDS: ARIPiprazole 2 MG TAB PO SCH (20:08)
[2019-08-28] MEDS: MECLIZINE 25 MG TABLET PO PRN ×3 (04:59→20:10)
[2019-08-28] MEDS: CEPACOL LOZENGE PO PRN ×6 (05:00→20:10)
[2019-08-28] MEDS: IBUPROFEN 400 MG TAB PO PRN ×3 (05:00→14:58)
[2019-08-28] MEDS: ALBUTEROL SULFATE 2.5 MG/0.5 ML INH NEB SOLN NEB PRN (06:15)
[2019-08-28 07:09] VITALS: BP 102/50
[2019-08-28] MEDS: DOCUSATE SODIUM 100 MG CAP PO SCH ×2 (08:05→20:09)
[2019-08-28] MEDS: diphenhydrAMINE 25 MG CAP PO PRN ×3 (08:05→21:04)
[2019-08-28] MEDS: MULTIVITAMINS/MINERALS THERAP 1 TAB PO SCH (08:05)
[2019-08-28] MEDS: POLYVINYL ALCOHOL OPHTH SOLN 15 ML(LIQUITEARS) OU PRN ×2 (08:05→20:08)
[2019-08-28] MEDS: FLUTICASONE HFA 220 MCG 12 GM INHALER (FLOVENT) INH PRN ×2 (08:06→20:08)
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
[2019-08-28 15:48] VITALS: BP 109/54
[2019-08-28] MEDS: ARIPiprazole 2 MG TAB PO SCH (20:08)
[2019-08-28] MEDS: SENNA 8.6 MG TAB (SENOKOT) PO PRN (20:10)
[2019-08-29] MEDS: MECLIZINE 25 MG TABLET PO PRN ×3 (04:59→21:01)
[2019-08-29] MEDS: IBUPROFEN 400 MG TAB PO PRN ×3 (04:59→19:59)
[2019-08-29] MEDS: CEPACOL LOZENGE PO PRN ×5 (05:00→22:20)
[2019-08-29 06:55] VITALS: BP 124/62
[2019-08-29] MEDS: POLYVINYL ALCOHOL OPHTH SOLN 15 ML(LIQUITEARS) OU PRN ×2 (08:09→19:30)
[2019-08-29] MEDS: MULTIVITAMINS/MINERALS THERAP 1 TAB PO SCH (08:09)
[2019-08-29] MEDS: DOCUSATE SODIUM 100 MG CAP PO SCH ×2 (08:09→20:00)
[2019-08-29] MEDS: diphenhydrAMINE 25 MG CAP PO PRN ×3 (08:09→22:22)
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
[2019-08-29] MEDS: ASCORBIC ACID 250 MG TAB PO SCH (12:50)
[2019-08-29] MEDS: ALBUTEROL SULFATE 2.5 MG/0.5 ML INH NEB SOLN NEB PRN (13:08)
[2019-08-29 17:22] VITALS: BP 140/54
[2019-08-29] MEDS: ARIPiprazole 2 MG TAB PO SCH (20:00)
[2019-08-29] MEDS: FLUTICASONE HFA 220 MCG 12 GM INHALER (FLOVENT) INH PRN (20:02)
[2019-08-30] MEDS: CEPACOL LOZENGE PO PRN ×6 (04:51→18:59)
[2019-08-30] MEDS: MECLIZINE 25 MG TABLET PO PRN ×2 (04:58→13:28)
[2019-08-30 05:59] VITALS: BP 117/73
[2019-08-30] MEDS: POLYVINYL ALCOHOL OPHTH SOLN 15 ML(LIQUITEARS) OU PRN ×2 (06:34→20:00)
[2019-08-30] MEDS: IBUPROFEN 400 MG TAB PO PRN ×2 (06:34→12:15)
[2019-08-30] MEDS: FLUTICASONE HFA 220 MCG 12 GM INHALER (FLOVENT) INH PRN ×2 (08:03→20:00)
[2019-08-30] MEDS: ASCORBIC ACID 250 MG TAB PO SCH (08:04)
[2019-08-30] MEDS: MULTIVITAMINS/MINERALS THERAP 1 TAB PO SCH (08:04)
[2019-08-30] MEDS: DOCUSATE SODIUM 100 MG CAP PO SCH ×2 (08:04→20:00)
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
[2019-08-30] MEDS: diphenhydrAMINE 25 MG CAP PO PRN ×3 (10:14→18:58)
[2019-08-30] MEDS: ALBUTEROL SULFATE 2.5 MG/0.5 ML INH NEB SOLN NEB PRN (14:45)
[2019-08-30 15:45] VITALS: BP 107/55
[2019-08-30] MEDS: ARIPiprazole 2 MG TAB PO SCH (20:00)
[2019-08-31] MEDS: MECLIZINE 25 MG TABLET PO PRN ×2 (05:43→16:57)
[2019-08-31] MEDS: IBUPROFEN 400 MG TAB PO PRN ×3 (05:44→17:31)
[2019-08-31] MEDS: CEPACOL LOZENGE PO PRN ×4 (05:45→19:57)
[2019-08-31] MEDS: diphenhydrAMINE 25 MG CAP PO PRN ×3 (05:53→15:49)
[2019-08-31 06:18] VITALS: BP 122/73
[2019-08-31] MEDS: ASCORBIC ACID 250 MG TAB PO SCH (08:27)
[2019-08-31] MEDS: MULTIVITAMINS/MINERALS THERAP 1 TAB PO SCH (08:27)
[2019-08-31] MEDS: FLUTICASONE HFA 220 MCG 12 GM INHALER (FLOVENT) INH PRN ×2 (08:27→19:57)
[2019-08-31] MEDS: POLYVINYL ALCOHOL OPHTH SOLN 15 ML(LIQUITEARS) OU PRN ×3 (08:28→19:59)
[2019-08-31] MEDS: DOCUSATE SODIUM 100 MG CAP PO SCH ×2 (08:28→20:00)
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
[2019-08-31] MEDS: ALBUTEROL SULFATE 2.5 MG/0.5 ML INH NEB SOLN NEB PRN (11:48)
[2019-08-31 16:48] VITALS: BP 121/59
[2019-08-31] MEDS: ARIPiprazole 2 MG TAB PO SCH (20:00)
[2019-09-01] MEDS: diphenhydrAMINE 25 MG CAP PO PRN ×3 (03:23→21:06)
[2019-09-01] MEDS: CEPACOL LOZENGE PO PRN ×5 (05:52→20:00)
[2019-09-01] MEDS: MECLIZINE 25 MG TABLET PO PRN ×3 (05:52→23:22)
[2019-09-01 06:00] VITALS: BP 108/51
[2019-09-01] MEDS: MULTIVITAMINS/MINERALS THERAP 1 TAB PO SCH (08:05)
[2019-09-01] MEDS: ASCORBIC ACID 250 MG TAB PO SCH (08:05)
[2019-09-01] MEDS: DOCUSATE SODIUM 100 MG CAP PO SCH ×2 (08:05→20:00)
[2019-09-01] MEDS: FLUTICASONE HFA 220 MCG 12 GM INHALER (FLOVENT) INH PRN ×2 (08:07→20:01)
[2019-09-01] MEDS: IBUPROFEN 400 MG TAB PO PRN ×3 (10:23→20:02)
[2019-09-01] MEDS: POLYVINYL ALCOHOL OPHTH SOLN 15 ML(LIQUITEARS) OU PRN ×2 (14:35→20:01)
[2019-09-01 16:11] VITALS: BP 119/56
[2019-09-01] MEDS: ARIPiprazole 2 MG TAB PO SCH (20:00)
[2019-09-02 06:18] VITALS: BP 124/62
[2019-09-02] MEDS: DOCUSATE SODIUM 100 MG CAP PO SCH ×2 (08:04→20:04)
[2019-09-02] MEDS: MULTIVITAMINS/MINERALS THERAP 1 TAB PO SCH (08:04)
[2019-09-02] MEDS: CEPACOL LOZENGE PO PRN ×3 (08:04→19:03)
[2019-09-02] MEDS: MECLIZINE 25 MG TABLET PO PRN ×2 (08:04→18:57)
[2019-09-02] MEDS: ASCORBIC ACID 250 MG TAB PO SCH (08:05)
[2019-09-02] MEDS: IBUPROFEN 400 MG TAB PO PRN ×3 (08:05→18:57)
[2019-09-02] MEDS: diphenhydrAMINE 25 MG CAP PO PRN ×3 (08:26→18:57)
[2019-09-02] MEDS: ALBUTEROL SULFATE 2.5 MG/0.5 ML INH NEB SOLN NEB PRN (09:01)
[2019-09-02] MEDS: POLYVINYL ALCOHOL OPHTH SOLN 15 ML(LIQUITEARS) OU PRN (18:59)
[2019-09-02 19:00] VITALS: BP 144/66
[2019-09-02] MEDS: ARIPiprazole 2 MG TAB PO SCH (20:04)
[2019-09-02] MEDS: FLUTICASONE HFA 220 MCG 12 GM INHALER (FLOVENT) INH PRN (20:04)
[2019-09-03 06:25] VITALS: BP 133/61
[2019-09-03] MEDS: MULTIVITAMINS/MINERALS THERAP 1 TAB PO SCH (08:13)
[2019-09-03] MEDS: FLUTICASONE HFA 220 MCG 12 GM INHALER (FLOVENT) INH PRN ×2 (08:13→20:07)
[2019-09-03] MEDS: POLYVINYL ALCOHOL OPHTH SOLN 15 ML(LIQUITEARS) OU PRN ×3 (08:13→20:10)
[2019-09-03] MEDS: IBUPROFEN 400 MG TAB PO PRN ×2 (08:14→16:03)
[2019-09-03] MEDS: ASCORBIC ACID 250 MG TAB PO SCH (08:14)
[2019-09-03] MEDS: diphenhydrAMINE 25 MG CAP PO PRN ×2 (08:14→20:08)
[2019-09-03] MEDS: DOCUSATE SODIUM 100 MG CAP PO SCH ×2 (08:14→20:07)
[2019-09-03] MEDS: CEPACOL LOZENGE PO PRN ×2 (08:15→16:04)
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
[2019-09-03] MEDS: MECLIZINE 25 MG TABLET PO PRN (14:14)
[2019-09-03 16:58] VITALS: BP 132/65
[2019-09-03] MEDS: ALBUTEROL SULFATE 2.5 MG/0.5 ML INH NEB SOLN NEB PRN (18:28)
[2019-09-03] MEDS: ARIPiprazole 2 MG TAB PO SCH (20:07)
[2019-09-04] MEDS: CEPACOL LOZENGE PO PRN ×2 (00:42→08:08)
[2019-09-04 06:31] VITALS: BP 142/70
[2019-09-04] MEDS: FLUTICASONE HFA 220 MCG 12 GM INHALER (FLOVENT) INH PRN ×2 (08:06→20:05)
[2019-09-04] MEDS: DOCUSATE SODIUM 100 MG CAP PO SCH ×2 (08:07→20:06)
[2019-09-04] MEDS: MULTIVITAMINS/MINERALS THERAP 1 TAB PO SCH (08:07)
[2019-09-04] MEDS: ASCORBIC ACID 250 MG TAB PO SCH (08:08)
[2019-09-04] MEDS: IBUPROFEN 400 MG TAB PO PRN ×2 (08:08→16:07)
[2019-09-04] MEDS: POLYVINYL ALCOHOL OPHTH SOLN 15 ML(LIQUITEARS) OU PRN ×2 (08:09→20:05)
[2019-09-04] MEDS: MECLIZINE 25 MG TABLET PO PRN ×2 (08:50→16:06)
[2019-09-04] MEDS: diphenhydrAMINE 25 MG CAP PO PRN ×2 (10:15→20:06)
[2019-09-04 16:32] VITALS: BP 112/58
[2019-09-04] MEDS: ARIPiprazole 2 MG TAB PO SCH (20:05)
[2019-09-05] MEDS: CEPACOL LOZENGE PO PRN ×3 (02:06→16:44)
[2019-09-05 06:06] VITALS: BP 140/64
[2019-09-05] MEDS: IBUPROFEN 400 MG TAB PO PRN ×2 (08:36→16:44)
[2019-09-05] MEDS: ASCORBIC ACID 250 MG TAB PO SCH (08:36)
[2019-09-05] MEDS: MECLIZINE 25 MG TABLET PO PRN ×2 (08:36→20:09)
[2019-09-05] MEDS: DOCUSATE SODIUM 100 MG CAP PO SCH ×2 (08:37→20:09)
[2019-09-05] MEDS: MULTIVITAMINS/MINERALS THERAP 1 TAB PO SCH (08:37)
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
[2019-09-05] MEDS: diphenhydrAMINE 25 MG CAP PO PRN ×2 (10:19→20:09)
[2019-09-05 16:01] VITALS: BP 120/68
[2019-09-05] MEDS: ALBUTEROL SULFATE 2.5 MG/0.5 ML INH NEB SOLN NEB PRN (17:00)
[2019-09-05] MEDS: FLUTICASONE HFA 220 MCG 12 GM INHALER (FLOVENT) INH PRN (20:08)
[2019-09-05] MEDS: ARIPiprazole 2 MG TAB PO SCH (20:09)
[2019-09-05] MEDS: POLYVINYL ALCOHOL OPHTH SOLN 15 ML(LIQUITEARS) OU PRN (20:09)
[2019-09-06 06:51] VITALS: BP 128/70
[2019-09-06] MEDS: DOCUSATE SODIUM 100 MG CAP PO SCH ×2 (08:12→20:01)
[2019-09-06] MEDS: MECLIZINE 25 MG TABLET PO PRN ×2 (08:14→16:14)
[2019-09-06] MEDS: MULTIVITAMINS/MINERALS THERAP 1 TAB PO SCH (08:14)
[2019-09-06] MEDS: IBUPROFEN 400 MG TAB PO PRN ×2 (08:14→16:17)
[2019-09-06] MEDS: CEPACOL LOZENGE PO PRN ×2 (08:18→16:15)
[2019-09-06] MEDS: ASCORBIC ACID 250 MG TAB PO SCH (09:03)
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
[2019-09-06] MEDS: diphenhydrAMINE 25 MG CAP PO PRN (13:17)
[2019-09-06] MEDS: FLUTICASONE HFA 220 MCG 12 GM INHALER (FLOVENT) INH PRN (16:14)
[2019-09-06 16:26] VITALS: BP 107/56
[2019-09-06] MEDS: POLYVINYL ALCOHOL OPHTH SOLN 15 ML(LIQUITEARS) OU PRN (20:01)
[2019-09-06] MEDS: ARIPiprazole 2 MG TAB PO SCH (20:02)
[2019-09-06] MEDS: traZODone 50 MG TAB PO PRN (21:44)
[2019-09-07 07:09] VITALS: BP 112/56
[2019-09-07] MEDS: MECLIZINE 25 MG TABLET PO PRN ×2 (08:01→16:32)
[2019-09-07] MEDS: POLYVINYL ALCOHOL OPHTH SOLN 15 ML(LIQUITEARS) OU PRN ×2 (08:01→20:08)
[2019-09-07] MEDS: FLUTICASONE HFA 220 MCG 12 GM INHALER (FLOVENT) INH PRN ×2 (08:01→20:08)
[2019-09-07] MEDS: IBUPROFEN 400 MG TAB PO PRN ×2 (08:02→18:51)
[2019-09-07] MEDS: ASCORBIC ACID 250 MG TAB PO SCH (08:02)
[2019-09-07] MEDS: DOCUSATE SODIUM 100 MG CAP PO SCH ×2 (08:02→20:06)
[2019-09-07] MEDS: MULTIVITAMINS/MINERALS THERAP 1 TAB PO SCH (08:02)
[2019-09-07] MEDS: CEPACOL LOZENGE PO PRN ×2 (08:03→16:29)
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
[2019-09-07] MEDS: diphenhydrAMINE 25 MG CAP PO PRN (16:29)
[2019-09-07] MEDS: ALBUTEROL SULFATE 2.5 MG/0.5 ML INH NEB SOLN NEB PRN (16:51)
[2019-09-07 17:11] VITALS: BP 119/59
[2019-09-07] MEDS: ARIPiprazole 2 MG TAB PO SCH (20:07)
[2019-09-08 06:35] VITALS: BP 121/58
[2019-09-08] MEDS: POLYVINYL ALCOHOL OPHTH SOLN 15 ML(LIQUITEARS) OU PRN ×2 (08:10→20:06)
[2019-09-08] MEDS: FLUTICASONE HFA 220 MCG 12 GM INHALER (FLOVENT) INH PRN ×2 (08:10→20:06)
[2019-09-08] MEDS: CEPACOL LOZENGE PO PRN ×3 (08:10→20:07)
[2019-09-08] MEDS: ASCORBIC ACID 250 MG TAB PO SCH (08:11)
[2019-09-08] MEDS: DOCUSATE SODIUM 100 MG CAP PO SCH ×2 (08:11→20:02)
[2019-09-08] MEDS: IBUPROFEN 400 MG TAB PO PRN ×2 (08:11→16:22)
[2019-09-08] MEDS: MECLIZINE 25 MG TABLET PO PRN ×2 (08:11→16:21)
[2019-09-08] MEDS: MULTIVITAMINS/MINERALS THERAP 1 TAB PO SCH (08:11)
[2019-09-08] MEDS: diphenhydrAMINE 25 MG CAP PO PRN (11:27)
[2019-09-08 16:35] VITALS: BP 120/68
[2019-09-08] MEDS: ALBUTEROL SULFATE 2.5 MG/0.5 ML INH NEB SOLN NEB PRN (16:59)
[2019-09-08] MEDS: ARIPiprazole 2 MG TAB PO SCH (20:02)
[2019-09-08] MEDS: traZODone 50 MG TAB PO PRN (20:02)
[2019-09-09 06:29] VITALS: BP 136/78
[2019-09-09] MEDS: POLYVINYL ALCOHOL OPHTH SOLN 15 ML(LIQUITEARS) OU PRN ×3 (08:14→20:09)
[2019-09-09] MEDS: FLUTICASONE HFA 220 MCG 12 GM INHALER (FLOVENT) INH PRN ×2 (08:14→20:09)
[2019-09-09] MEDS: DOCUSATE SODIUM 100 MG CAP PO SCH ×2 (08:15→20:08)
[2019-09-09] MEDS: MECLIZINE 25 MG TABLET PO PRN ×2 (08:15→16:11)
[2019-09-09] MEDS: ASCORBIC ACID 250 MG TAB PO SCH (08:15)
[2019-09-09] MEDS: MULTIVITAMINS/MINERALS THERAP 1 TAB PO SCH (08:15)
[2019-09-09] MEDS: IBUPROFEN 400 MG TAB PO PRN ×2 (08:17→16:11)
[2019-09-09] MEDS: CEPACOL LOZENGE PO PRN ×3 (08:25→20:08)
[2019-09-09 16:54] VITALS: BP 112/73
[2019-09-09] MEDS: ARIPiprazole 2 MG TAB PO SCH (20:08)
[2019-09-09] MEDS: traZODone 50 MG TAB PO PRN (20:10)
[2019-09-10 06:34] VITALS: BP 118/71
[2019-09-10] MEDS: MECLIZINE 25 MG TABLET PO PRN ×2 (08:13→20:02)
[2019-09-10] MEDS: DOCUSATE SODIUM 100 MG CAP PO SCH ×2 (08:13→20:02)
[2019-09-10] MEDS: ASCORBIC ACID 250 MG TAB PO SCH (08:13)
[2019-09-10] MEDS: MULTIVITAMINS/MINERALS THERAP 1 TAB PO SCH (08:13)
[2019-09-10] MEDS: CEPACOL LOZENGE PO PRN ×2 (08:16→20:02)
[2019-09-10] MEDS: diphenhydrAMINE 25 MG CAP PO PRN (08:16)
[2019-09-10] MEDS: POLYVINYL ALCOHOL OPHTH SOLN 15 ML(LIQUITEARS) OU PRN (08:19)
[2019-09-10] MEDS: FLUTICASONE HFA 220 MCG 12 GM INHALER (FLOVENT) INH PRN ×2 (08:19→20:02)
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
[2019-09-10] MEDS: PREPARATION H OINTMENT (HEMORRHOID) PR PRN (13:24)
[2019-09-10] MEDS: IBUPROFEN 400 MG TAB PO PRN (13:25)
[2019-09-10 14:00] VITALS: BP 94/56
[2019-09-10] MEDS: ARIPiprazole 2 MG TAB PO SCH (20:02)
[2019-09-10] MEDS: SENNA 8.6 MG TAB (SENOKOT) PO PRN (21:02)
[2019-09-10] MEDS: traZODone 50 MG TAB PO PRN (21:02)
[2019-09-11 06:19] VITALS: BP 99/50
[2019-09-11] MEDS: ASCORBIC ACID 250 MG TAB PO SCH (08:03)
[2019-09-11] MEDS: DOCUSATE SODIUM 100 MG CAP PO SCH ×2 (08:03→20:14)
[2019-09-11] MEDS: IBUPROFEN 400 MG TAB PO PRN ×2 (08:03→15:59)
[2019-09-11] MEDS: POLYVINYL ALCOHOL OPHTH SOLN 15 ML(LIQUITEARS) OU PRN ×2 (08:03→16:00)
[2019-09-11] MEDS: MULTIVITAMINS/MINERALS THERAP 1 TAB PO SCH (08:03)
[2019-09-11] MEDS: FLUTICASONE HFA 220 MCG 12 GM INHALER (FLOVENT) INH PRN ×2 (08:05→20:14)
--- NOTE | 2019-09-11 10:45 | MHIPNPDOC ---
[facility] Progress Note Progress Note Inpatient Progress Note Betzaida Ayers MRN: N/A Date of : N/A Date of Service: 09/11/2019 History of Present Illness The patient, a 68-year-old woman with a reported history of a psychotic disorder, presents to [facility] initially admitted to medicine due to weakness. She has been noted by EMS to be walking around outside and acting bizarrely. The patient had been fairly guarded and did not answer any questions and appeared to continue to act very bizarre reporting various visual and auditory hallucinations and delusional behavior. Interval History Psychiatric symptoms today: The patient's attempted to be met with, however, she obsesses about various offenses and is highly focused on faith themes. Affective: Unable to determine. Psychotic: still disorganized and delusional Anxiety:unable to determine Misc:Eating/sleeping behavior normal Group Attendance: Medication Side effects: See ROS below Behavioral problems/significant events overnight: None noted. Staff Report: The patient's difficult and medication focused. Review Of Systems Unable to determine due to mental state. Psychotherapy None on this visit. Vital Signs Reviewed. Mental Status Examination General: Fair hygiene Speech: Pressured Thought processes: Tangential MSK: Smooth and coordinated gait, no signs of tremors or involuntary orofacial movements Thought content: Bizarre and hyper-faith Abstract reasoning, and computation: Impaired Description of associations: Impaired Description of abnormal or psychotic thoughts: Unable to determine Judgment: Impaired Insight: Impaired Orientation: Alert and orientated 3 Cognition: Grossly normal Recent and remote memory: Intact Attention span and concentration: Impaired secondary to thought process Fund of knowledge: Adequate Mood: "You didn't listen to my question." Affect: Irritable and angry Diagnoses Schizophrenia. Assessment and Plan Schizophrenia: Continue patient's medications. We'll add Rozerem 8 mg daily as likely more appropriate for patient's age group especially with reported dizziness at times. On trazodone, the PRN dose of trazodone will be lowered to 25 mg at the patient's request. Disposition Patient will need a continued admission due to her inability to care for herself due to her delusional and religiously preoccupied situation and her difficulty with paranoia related to daughter. Time Spent 15 minutes. Tuesday Vital Signs Vital Signs Date Time Temp Pulse Resp B/P (MAP) Pulse Ox O2 Delivery O2 Flow Rate FiO2 09/11/19 06:19 97.2 64 14 99/50 (66) 09/06/19 06:51 Room Air Current Medications Current Medications Medications (Trade) Dose Ordered Sig/Dario Route PRN Reason Start Time Stop Time Status Last Admin Dose Admin Acetaminophen (Tylenol Tab) 650 mg Q6HP PRN PO HEADACHE or DISCOMFORT 08/22/19 23:15 Cancel Al Hydrox/Mg Hydrox/Simethicone (Mylanta) 30 ml Q4HP PRN PO HEARTBURN/INDIGESTION 08/22/19 23:15 Albuterol Sulfate (Proventil Neb) 2.5 mg Q6HP PRN NEB SOB/WHEEZING 08/23/19 17:30 09/08/19 16:59 Aripiprazole (AbiLIFY) 4 mg QHS PO 08/23/19 21:00 09/10/19 20:02 Artificial Tears (Akwa Tears) 2 drop TIDP PRN OU DRY EYES 08/23/19 17:30 09/11/19 08:03 Ascorbic Acid (Vitamin C) 250 mg DAILY PO 08/29/19 09:00 09/11/19 08:03 Cetylpyridinium Chloride (Cepacol) 1 lio Q2HP PRN PO SORE THROAT 08/25/19 18:00 09/03/19 09:47 DC 09/03/19 08:15 Cetylpyridinium Chloride (Cepacol) 1 lio TIDP PRN PO SORE THROAT 09/03/19 10:00 09/10/19 20:02 Diphenhydramine HCl (Benadryl) 25 mg Q4HP PRN PO TREMORS 08/24/19 16:30 08/29/19 09:56 DC 08/29/19 08:09 Diphenhydramine HCl (Benadryl) 25 mg Q4HP PRN PO ANXIETY AND TREMOR 08/29/19 10:00 09/03/19 09:47 DC 09/03/19 08:14 Diphenhydramine HCl (Benadryl) 25 mg TIDP PRN PO ANXIETY AND TREMOR 09/03/19 10:00 09/10/19 08:16 Docusate Sodium (Colace) 100 mg BID PO 08/24/19 09:00 09/11/19 08:03 Fluticasone Propionate (Flovent Hfa 220mcg) 2 puff BIDP PRN INH SOB/WHEEZING 08/23/19 16:15 09/11/19 08:05 Home Med (Med Rec Complete!) ASDIRECTED XX 08/22/19 21:30 08/22/19 21:29 DC Ibuprofen (Advil) 400 mg Q4HP PRN PO PAIN 08/23/19 10:30 09/03/19 09:47 DC 09/03/19 08:14 Ibuprofen (Advil) 400 mg TIDP PRN PO PAIN 09/03/19 09:45 09/11/19 08:03 Magnesium Hydroxide (Milk Of Magnesia) 30 ml DAILYPRN PRN PO CONSTIPATION 08/22/19 23:15 Meclizine HCl (Antivert) 25 mg TIDP PRN PO DIZZINESS 08/23/19 21:15 09/10/19 20:02 Multivitamins (Theragram-M) 1 tab DAILY PO 08/25/19 09:00 09/11/19 08:03 Olanzapine (ZyPREXA ZYDIS) 2.5 mg Q4HP PRN PO ANXIETY/AGITATION 08/23/19 11:30 08/26/19 10:28 Olanzapine (ZyPREXA ZYDIS) 10 mg TID PRN PO agitation 08/23/19 09:00 Cancel Phenyleph/Shark Oil/Min Oil/Petrol (Preparation H Ointment) 1 dose QIDP PRN MO ITCHING 08/23/19 17:30 09/10/19 13:24 Senna (Senokot) 1 tab QHSP PRN PO CONSTIPATION 08/23/19 21:15 09/10/19 21:02 Trazodone HCl (Desyrel) 50 mg QHSP PRN PO INSOMNIA 08/22/19 23:15 09/10/19 21:02 Allergies Coded Allergies: azithromycin (Unverified Allergy, Mild, loose stools , 07/29/19) MIKE DE LA FUENTE DO Sep 11, 2019 10:45
[2019-09-11] MEDS: ALBUTEROL SULFATE 2.5 MG/0.5 ML INH NEB SOLN NEB PRN (11:20)
[2019-09-11] MEDS: CEPACOL LOZENGE PO PRN (15:59)
[2019-09-11 17:48] VITALS: BP 101/64
[2019-09-11] MEDS: MECLIZINE 25 MG TABLET PO PRN (17:55)
[2019-09-11] MEDS: ARIPiprazole 2 MG TAB PO SCH (20:14)
[2019-09-11] MEDS: traZODone 25MG PER 1/2 TABLET PO PRN (20:14)
[2019-09-11] MEDS: RAMELTEON 8 MG TAB (ROZEREM) PO SCH (20:17)
[2019-09-12 06:17] VITALS: BP 129/66
[2019-09-12] MEDS: FLUTICASONE HFA 220 MCG 12 GM INHALER (FLOVENT) INH PRN (08:07)
[2019-09-12] MEDS: MULTIVITAMINS/MINERALS THERAP 1 TAB PO SCH (08:07)
[2019-09-12] MEDS: ASCORBIC ACID 250 MG TAB PO SCH (08:07)
[2019-09-12] MEDS: MECLIZINE 25 MG TABLET PO PRN ×2 (08:07→16:22)
[2019-09-12] MEDS: DOCUSATE SODIUM 100 MG CAP PO SCH ×2 (08:07→20:02)
[2019-09-12] MEDS: POLYVINYL ALCOHOL OPHTH SOLN 15 ML(LIQUITEARS) OU PRN ×2 (08:09→16:23)
[2019-09-12] MEDS: CEPACOL LOZENGE PO PRN ×2 (08:26→20:02)
[2019-09-12] MEDS: IBUPROFEN 400 MG TAB PO PRN (08:26)
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
[2019-09-12 16:00] VITALS: BP 104/56
[2019-09-12] MEDS: PREPARATION H OINTMENT (HEMORRHOID) PR PRN (16:23)
[2019-09-12] MEDS: ALBUTEROL SULFATE 2.5 MG/0.5 ML INH NEB SOLN NEB PRN (18:37)
[2019-09-12] MEDS: ARIPiprazole 2 MG TAB PO SCH (20:02)
[2019-09-12] MEDS: traZODone 25MG PER 1/2 TABLET PO PRN (20:02)
[2019-09-12] MEDS: RAMELTEON 8 MG TAB (ROZEREM) PO SCH (20:04)
[2019-09-13 06:24] VITALS: BP 119/56
[2019-09-13] MEDS: POLYVINYL ALCOHOL OPHTH SOLN 15 ML(LIQUITEARS) OU PRN ×2 (08:02→20:16)
[2019-09-13] MEDS: MULTIVITAMINS/MINERALS THERAP 1 TAB PO SCH (08:02)
[2019-09-13] MEDS: MECLIZINE 25 MG TABLET PO PRN ×2 (08:02→20:16)
[2019-09-13] MEDS: CEPACOL LOZENGE PO PRN ×2 (08:02→15:39)
[2019-09-13] MEDS: ASCORBIC ACID 250 MG TAB PO SCH (08:02)
[2019-09-13] MEDS: FLUTICASONE HFA 220 MCG 12 GM INHALER (FLOVENT) INH PRN ×2 (08:02→20:16)
[2019-09-13] MEDS: DOCUSATE SODIUM 100 MG CAP PO SCH ×2 (08:02→20:16)
[2019-09-13] MEDS: diphenhydrAMINE 25 MG CAP PO PRN (09:34)
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
[2019-09-13] MEDS: IBUPROFEN 400 MG TAB PO PRN (15:39)
[2019-09-13 15:45] VITALS: BP 109/50
[2019-09-13] MEDS: RAMELTEON 8 MG TAB (ROZEREM) PO SCH (20:16)
[2019-09-13] MEDS: traZODone 25MG PER 1/2 TABLET PO PRN (20:16)
[2019-09-13] MEDS: ARIPiprazole 2 MG TAB PO SCH (20:16)
[2019-09-14 06:10] VITALS: BP 131/71
[2019-09-14] MEDS: ASCORBIC ACID 250 MG TAB PO SCH (08:17)
[2019-09-14] MEDS: IBUPROFEN 400 MG TAB PO PRN ×2 (08:17→17:39)
[2019-09-14] MEDS: POLYVINYL ALCOHOL OPHTH SOLN 15 ML(LIQUITEARS) OU PRN ×2 (08:17→20:07)
[2019-09-14] MEDS: MECLIZINE 25 MG TABLET PO PRN ×2 (08:17→21:28)
[2019-09-14] MEDS: DOCUSATE SODIUM 100 MG CAP PO SCH ×2 (08:18→20:06)
[2019-09-14] MEDS: MULTIVITAMINS/MINERALS THERAP 1 TAB PO SCH (08:18)
[2019-09-14] MEDS: FLUTICASONE HFA 220 MCG 12 GM INHALER (FLOVENT) INH PRN ×2 (08:19→20:07)
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
[2019-09-14] MEDS: diphenhydrAMINE 25 MG CAP PO PRN ×2 (12:18→21:44)
[2019-09-14 15:09] VITALS: BP 104/58
[2019-09-14] MEDS: CEPACOL LOZENGE PO PRN (15:16)
[2019-09-14] MEDS: SENNA 8.6 MG TAB (SENOKOT) PO PRN (20:06)
[2019-09-14] MEDS: ARIPiprazole 2 MG TAB PO SCH (20:06)
[2019-09-14] MEDS: RAMELTEON 8 MG TAB (ROZEREM) PO SCH (20:10)
[2019-09-14] MEDS: OLANZapine ORAL DISINTEGRATING TAB 5MG PO PRN (23:03)
[2019-09-15 06:13] VITALS: BP 96/63
[2019-09-15] MEDS: DOCUSATE SODIUM 100 MG CAP PO SCH ×2 (08:08→20:00)
[2019-09-15] MEDS: ASCORBIC ACID 250 MG TAB PO SCH (08:08)
[2019-09-15] MEDS: diphenhydrAMINE 25 MG CAP PO PRN (08:08)
[2019-09-15] MEDS: POLYVINYL ALCOHOL OPHTH SOLN 15 ML(LIQUITEARS) OU PRN ×2 (08:08→16:05)
[2019-09-15] MEDS: MECLIZINE 25 MG TABLET PO PRN ×2 (08:08→16:05)
[2019-09-15] MEDS: FLUTICASONE HFA 220 MCG 12 GM INHALER (FLOVENT) INH PRN ×2 (08:08→19:58)
[2019-09-15] MEDS: MULTIVITAMINS/MINERALS THERAP 1 TAB PO SCH (08:08)
[2019-09-15] MEDS: IBUPROFEN 400 MG TAB PO PRN (12:55)
[2019-09-15 15:34] VITALS: BP 107/52
[2019-09-15] MEDS: PILL CUTTER 1 EACH XX PRN (19:57)
[2019-09-15] MEDS: OLANZapine ORAL DISINTEGRATING TAB 5MG PO PRN (19:57)
[2019-09-15] MEDS: ARIPiprazole 2 MG TAB PO SCH (20:00)
[2019-09-15] MEDS: RAMELTEON 8 MG TAB (ROZEREM) PO SCH (20:34)
[2019-09-16 06:19] VITALS: BP 92/60
[2019-09-16] MEDS: IBUPROFEN 400 MG TAB PO PRN (06:46)
[2019-09-16] MEDS: CEPACOL LOZENGE PO PRN ×2 (08:03→22:19)
[2019-09-16] MEDS: DOCUSATE SODIUM 100 MG CAP PO SCH ×2 (08:03→20:35)
[2019-09-16] MEDS: MULTIVITAMINS/MINERALS THERAP 1 TAB PO SCH (08:03)
[2019-09-16] MEDS: MECLIZINE 25 MG TABLET PO PRN ×2 (08:03→16:27)
[2019-09-16] MEDS: ASCORBIC ACID 250 MG TAB PO SCH (08:03)
[2019-09-16] MEDS: POLYVINYL ALCOHOL OPHTH SOLN 15 ML(LIQUITEARS) OU PRN ×2 (08:04→16:28)
[2019-09-16] MEDS: FLUTICASONE HFA 220 MCG 12 GM INHALER (FLOVENT) INH PRN (08:04)
[2019-09-16] MEDS: diphenhydrAMINE 25 MG CAP PO PRN (12:58)
[2019-09-16] MEDS: OLANZapine ORAL DISINTEGRATING TAB 5MG PO PRN ×2 (14:14→22:21)
[2019-09-16 16:06] VITALS: BP 117/57
[2019-09-16] MEDS: ARIPiprazole 2 MG TAB PO SCH (20:35)
[2019-09-16] MEDS: RAMELTEON 8 MG TAB (ROZEREM) PO SCH (21:00)
[2019-09-17] MEDS: traZODone 25MG PER 1/2 TABLET PO PRN ×2 (00:45→21:36)
[2019-09-17 06:47] VITALS: BP 121/62
[2019-09-17] MEDS: POLYVINYL ALCOHOL OPHTH SOLN 15 ML(LIQUITEARS) OU PRN ×2 (08:05→20:40)
[2019-09-17] MEDS: FLUTICASONE HFA 220 MCG 12 GM INHALER (FLOVENT) INH PRN ×2 (08:05→20:39)
[2019-09-17] MEDS: MULTIVITAMINS/MINERALS THERAP 1 TAB PO SCH (08:06)
[2019-09-17] MEDS: MECLIZINE 25 MG TABLET PO PRN ×2 (08:06→20:37)
[2019-09-17] MEDS: diphenhydrAMINE 25 MG CAP PO PRN (08:06)
[2019-09-17] MEDS: ASCORBIC ACID 250 MG TAB PO SCH (08:07)
[2019-09-17] MEDS: DOCUSATE SODIUM 100 MG CAP PO SCH ×2 (08:07→20:37)
[2019-09-17] MEDS: CEPACOL LOZENGE PO PRN ×2 (08:15→21:36)
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
[2019-09-17] MEDS: IBUPROFEN 400 MG TAB PO PRN ×2 (11:44→20:38)
[2019-09-17] MEDS: OLANZapine ORAL DISINTEGRATING TAB 5MG PO PRN (13:12)
[2019-09-17] MEDS: ALBUTEROL SULFATE 2.5 MG/0.5 ML INH NEB SOLN NEB PRN (15:02)
[2019-09-17 16:00] VITALS: BP 105/54
[2019-09-17] MEDS: ARIPiprazole 2 MG TAB PO SCH (20:37)
[2019-09-17] MEDS: RAMELTEON 8 MG TAB (ROZEREM) PO SCH (21:00)
[2019-09-18 06:18] VITALS: BP 117/55
[2019-09-18] MEDS: FLUTICASONE HFA 220 MCG 12 GM INHALER (FLOVENT) INH PRN ×2 (08:58→20:09)
[2019-09-18] MEDS: POLYVINYL ALCOHOL OPHTH SOLN 15 ML(LIQUITEARS) OU PRN ×2 (08:58→20:08)
[2019-09-18] MEDS: DOCUSATE SODIUM 100 MG CAP PO SCH ×2 (08:59→20:08)
[2019-09-18] MEDS: diphenhydrAMINE 25 MG CAP PO PRN ×2 (08:59→20:08)
[2019-09-18] MEDS: MULTIVITAMINS/MINERALS THERAP 1 TAB PO SCH (08:59)
[2019-09-18] MEDS: ASCORBIC ACID 250 MG TAB PO SCH (09:00)
[2019-09-18] MEDS: CEPACOL LOZENGE PO PRN ×2 (09:00→20:08)
[2019-09-18] MEDS: MECLIZINE 25 MG TABLET PO PRN ×2 (09:43→20:08)
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
[2019-09-18] MEDS: IBUPROFEN 400 MG TAB PO PRN (13:10)
[2019-09-18 16:08] VITALS: BP 130/68
[2019-09-18] MEDS: ARIPiprazole 2 MG TAB PO SCH (20:08)
[2019-09-18] MEDS: RAMELTEON 8 MG TAB (ROZEREM) PO SCH (20:09)
[2019-09-18] MEDS: traZODone 25MG PER 1/2 TABLET PO PRN (21:00)
[2019-09-19 07:21] VITALS: BP 125/70
[2019-09-19] MEDS: POLYVINYL ALCOHOL OPHTH SOLN 15 ML(LIQUITEARS) OU PRN ×2 (08:32→20:01)
[2019-09-19] MEDS: FLUTICASONE HFA 220 MCG 12 GM INHALER (FLOVENT) INH PRN ×2 (08:32→20:01)
[2019-09-19] MEDS: MECLIZINE 25 MG TABLET PO PRN ×2 (08:33→20:01)
[2019-09-19] MEDS: CEPACOL LOZENGE PO PRN ×2 (08:33→20:03)
[2019-09-19] MEDS: MULTIVITAMINS/MINERALS THERAP 1 TAB PO SCH (08:33)
[2019-09-19] MEDS: ASCORBIC ACID 250 MG TAB PO SCH (08:33)
[2019-09-19] MEDS: DOCUSATE SODIUM 100 MG CAP PO SCH ×2 (08:33→20:01)
[2019-09-19] MEDS: IBUPROFEN 400 MG TAB PO PRN ×2 (09:28→19:08)
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
[2019-09-19] MEDS: diphenhydrAMINE 25 MG CAP PO PRN ×2 (12:04→15:40)
[2019-09-19 16:32] VITALS: BP 119/58
[2019-09-19] MEDS: ARIPiprazole 2 MG TAB PO SCH (20:01)
[2019-09-19] MEDS: RAMELTEON 8 MG TAB (ROZEREM) PO SCH (20:19)
[2019-09-19] MEDS: traZODone 25MG PER 1/2 TABLET PO PRN (20:51)
[2019-09-20 06:29] VITALS: BP 140/70
[2019-09-20] MEDS: DOCUSATE SODIUM 100 MG CAP PO SCH ×2 (08:07→20:07)
[2019-09-20] MEDS: MULTIVITAMINS/MINERALS THERAP 1 TAB PO SCH (08:07)
[2019-09-20] MEDS: ASCORBIC ACID 250 MG TAB PO SCH (08:07)
[2019-09-20] MEDS: IBUPROFEN 400 MG TAB PO PRN ×2 (08:08→16:36)
[2019-09-20] MEDS: CEPACOL LOZENGE PO PRN ×2 (08:08→21:21)
[2019-09-20] MEDS: POLYVINYL ALCOHOL OPHTH SOLN 15 ML(LIQUITEARS) OU PRN ×2 (08:08→20:07)
[2019-09-20] MEDS: MECLIZINE 25 MG TABLET PO PRN ×2 (08:08→16:36)
[2019-09-20] MEDS: FLUTICASONE HFA 220 MCG 12 GM INHALER (FLOVENT) INH PRN ×2 (08:08→20:07)
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
[2019-09-20] MEDS: diphenhydrAMINE 25 MG CAP PO PRN (13:14)
[2019-09-20 18:46] VITALS: BP 99/53
[2019-09-20] MEDS: ARIPiprazole 2 MG TAB PO SCH (20:07)
[2019-09-20] MEDS: ANALGESIC BALM CRM 120 GM TOP PRN (20:10)
[2019-09-20] MEDS: traZODone 25MG PER 1/2 TABLET PO PRN (22:38)
[2019-09-21 06:13] VITALS: BP 108/60
[2019-09-21] MEDS: FLUTICASONE HFA 220 MCG 12 GM INHALER (FLOVENT) INH PRN (07:57)
[2019-09-21] MEDS: MECLIZINE 25 MG TABLET PO PRN ×2 (07:57→16:08)
[2019-09-21] MEDS: POLYVINYL ALCOHOL OPHTH SOLN 15 ML(LIQUITEARS) OU PRN ×2 (07:57→20:13)
[2019-09-21] MEDS: ASCORBIC ACID 250 MG TAB PO SCH (08:00)
[2019-09-21] MEDS: MULTIVITAMINS/MINERALS THERAP 1 TAB PO SCH (08:00)
[2019-09-21] MEDS: DOCUSATE SODIUM 100 MG CAP PO SCH ×2 (08:00→20:13)
[2019-09-21] MEDS: IBUPROFEN 400 MG TAB PO PRN ×2 (08:01→16:09)
[2019-09-21] MEDS: CEPACOL LOZENGE PO PRN (08:41)
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
[2019-09-21] MEDS: diphenhydrAMINE 25 MG CAP PO PRN ×2 (11:36→20:15)
[2019-09-21] MEDS: ANALGESIC BALM CRM 120 GM TOP PRN (15:15)
[2019-09-21 16:31] VITALS: BP 129/92
[2019-09-21] MEDS: ARIPiprazole 2 MG TAB PO SCH (20:13)
[2019-09-21] MEDS: PREPARATION H OINTMENT (HEMORRHOID) PR PRN (20:16)
[2019-09-21] MEDS: traZODone 25MG PER 1/2 TABLET PO PRN (21:14)
[2019-09-22 06:27] VITALS: BP 142/82
[2019-09-22] MEDS: ANALGESIC BALM CRM 120 GM TOP PRN (08:11)
[2019-09-22] MEDS: FLUTICASONE HFA 220 MCG 12 GM INHALER (FLOVENT) INH PRN ×2 (08:11→19:57)
[2019-09-22] MEDS: POLYVINYL ALCOHOL OPHTH SOLN 15 ML(LIQUITEARS) OU PRN ×2 (08:12→16:09)
[2019-09-22] MEDS: DOCUSATE SODIUM 100 MG CAP PO SCH ×2 (08:12→20:00)
[2019-09-22] MEDS: CEPACOL LOZENGE PO PRN ×2 (08:12→16:11)
[2019-09-22] MEDS: ASCORBIC ACID 250 MG TAB PO SCH (08:12)
[2019-09-22] MEDS: MECLIZINE 25 MG TABLET PO PRN ×2 (08:12→16:10)
[2019-09-22] MEDS: IBUPROFEN 400 MG TAB PO PRN ×2 (08:13→16:10)
[2019-09-22] MEDS: MULTIVITAMINS/MINERALS THERAP 1 TAB PO SCH (08:13)
[2019-09-22 16:21] VITALS: BP 113/80
[2019-09-22] MEDS: traZODone 25MG PER 1/2 TABLET PO PRN (20:00)
[2019-09-22] MEDS: ARIPiprazole 2 MG TAB PO SCH (20:00)
[2019-09-23 06:52] VITALS: BP 128/59
[2019-09-23] MEDS: DOCUSATE SODIUM 100 MG CAP PO SCH ×2 (08:26→20:00)
[2019-09-23] MEDS: CEPACOL LOZENGE PO PRN (08:26)
[2019-09-23] MEDS: MECLIZINE 25 MG TABLET PO PRN ×2 (08:26→16:33)
[2019-09-23] MEDS: FLUTICASONE HFA 220 MCG 12 GM INHALER (FLOVENT) INH PRN ×2 (08:26→19:59)
[2019-09-23] MEDS: POLYVINYL ALCOHOL OPHTH SOLN 15 ML(LIQUITEARS) OU PRN ×2 (08:26→16:33)
[2019-09-23] MEDS: MULTIVITAMINS/MINERALS THERAP 1 TAB PO SCH (08:26)
[2019-09-23] MEDS: IBUPROFEN 400 MG TAB PO PRN ×2 (08:27→16:33)
[2019-09-23] MEDS: ASCORBIC ACID 250 MG TAB PO SCH (08:28)
[2019-09-23] MEDS: diphenhydrAMINE 25 MG CAP PO PRN (12:57)
[2019-09-23 16:10] VITALS: BP 122/65
[2019-09-23] MEDS: traZODone 25MG PER 1/2 TABLET PO PRN (20:00)
[2019-09-23] MEDS: ARIPiprazole 2 MG TAB PO SCH (20:00)
[2019-09-24 06:54] VITALS: BP 132/74
[2019-09-24] MEDS: MECLIZINE 25 MG TABLET PO PRN ×2 (08:23→15:43)
[2019-09-24] MEDS: MULTIVITAMINS/MINERALS THERAP 1 TAB PO SCH (08:23)
[2019-09-24] MEDS: IBUPROFEN 400 MG TAB PO PRN ×2 (08:23→15:42)
[2019-09-24] MEDS: DOCUSATE SODIUM 100 MG CAP PO SCH ×2 (08:23→20:16)
[2019-09-24] MEDS: ASCORBIC ACID 250 MG TAB PO SCH (08:24)
[2019-09-24] MEDS: POLYVINYL ALCOHOL OPHTH SOLN 15 ML(LIQUITEARS) OU PRN ×2 (08:24→20:15)
[2019-09-24] MEDS: PREPARATION H OINTMENT (HEMORRHOID) PR PRN (08:24)
[2019-09-24] MEDS: ANALGESIC BALM CRM 120 GM TOP PRN (08:24)
[2019-09-24] MEDS: CEPACOL LOZENGE PO PRN (08:26)
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
[2019-09-24] MEDS: diphenhydrAMINE 25 MG CAP PO PRN (13:25)
[2019-09-24 16:25] VITALS: BP 160/74
[2019-09-24] MEDS: FLUTICASONE HFA 220 MCG 12 GM INHALER (FLOVENT) INH PRN (20:15)
[2019-09-24] MEDS: SENNA 8.6 MG TAB (SENOKOT) PO PRN (20:16)
[2019-09-24] MEDS: ARIPiprazole 2 MG TAB PO SCH (20:16)
[2019-09-25] MEDS: MECLIZINE 25 MG TABLET PO PRN ×2 (06:06→14:56)
[2019-09-25] MEDS: IBUPROFEN 400 MG TAB PO PRN ×3 (06:07→22:59)
[2019-09-25 06:34] VITALS: BP 125/67
[2019-09-25] MEDS: FLUTICASONE HFA 220 MCG 12 GM INHALER (FLOVENT) INH PRN ×2 (08:12→19:58)
[2019-09-25] MEDS: DOCUSATE SODIUM 100 MG CAP PO SCH ×2 (08:13→20:00)
[2019-09-25] MEDS: ANALGESIC BALM CRM 120 GM TOP PRN (08:13)
[2019-09-25] MEDS: CEPACOL LOZENGE PO PRN ×2 (08:13→19:58)
[2019-09-25] MEDS: ASCORBIC ACID 250 MG TAB PO SCH (08:13)
[2019-09-25] MEDS: POLYVINYL ALCOHOL OPHTH SOLN 15 ML(LIQUITEARS) OU PRN ×2 (08:13→14:57)
[2019-09-25] MEDS: MULTIVITAMINS/MINERALS THERAP 1 TAB PO SCH (08:13)
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
[2019-09-25] MEDS: diphenhydrAMINE 25 MG CAP PO PRN ×2 (09:36→19:13)
[2019-09-25 15:45] VITALS: BP 111/64
[2019-09-25] MEDS: ARIPiprazole 2 MG TAB PO SCH (20:00)
[2019-09-26 06:12] VITALS: BP 111/57
[2019-09-26] MEDS: FLUTICASONE HFA 220 MCG 12 GM INHALER (FLOVENT) INH PRN (07:57)
[2019-09-26] MEDS: MULTIVITAMINS/MINERALS THERAP 1 TAB PO SCH (07:58)
[2019-09-26] MEDS: POLYVINYL ALCOHOL OPHTH SOLN 15 ML(LIQUITEARS) OU PRN ×2 (07:58→15:25)
[2019-09-26] MEDS: IBUPROFEN 400 MG TAB PO PRN ×2 (07:58→18:01)
[2019-09-26] MEDS: CEPACOL LOZENGE PO PRN ×2 (07:58→18:02)
[2019-09-26] MEDS: DOCUSATE SODIUM 100 MG CAP PO SCH ×2 (07:58→20:00)
[2019-09-26] MEDS: MECLIZINE 25 MG TABLET PO PRN ×2 (07:58→20:00)
[2019-09-26] MEDS: ASCORBIC ACID 250 MG TAB PO SCH (07:59)
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
[2019-09-26] MEDS: diphenhydrAMINE 25 MG CAP PO PRN (15:23)
[2019-09-26] MEDS: PREPARATION H OINTMENT (HEMORRHOID) PR PRN (15:23)
[2019-09-26 17:15] VITALS: BP 125/57
[2019-09-26] MEDS: ARIPiprazole 2 MG TAB PO SCH (20:00)
[2019-09-26] MEDS: traZODone 25MG PER 1/2 TABLET PO PRN (23:03)
[2019-09-27 06:08] VITALS: BP 128/62
[2019-09-27] MEDS: ASCORBIC ACID 250 MG TAB PO SCH (08:07)
[2019-09-27] MEDS: DOCUSATE SODIUM 100 MG CAP PO SCH ×2 (08:07→20:19)
[2019-09-27] MEDS: MULTIVITAMINS/MINERALS THERAP 1 TAB PO SCH (08:07)
[2019-09-27] MEDS: CEPACOL LOZENGE PO PRN ×2 (08:08→20:25)
[2019-09-27] MEDS: MECLIZINE 25 MG TABLET PO PRN (08:08)
[2019-09-27] MEDS: POLYVINYL ALCOHOL OPHTH SOLN 15 ML(LIQUITEARS) OU PRN ×2 (08:08→20:22)
--- NOTE | 2019-09-27 08:24 | MHIPNPDOC ---
[facility] Progress Note Progress Note Inpatient Progress Note Betzaida Ayers MRN: N/A Date of : N/A Date of Service: 09/27/2019 History of Present Illness The patient, a 68-year-old woman with a reported history of a psychotic disorder, presents to [facility] initially admitted to medicine due to weakness. She has been noted by EMS to be walking around outside and acting bizarrely. The patient had been fairly guarded and did not answer any questions and appeared to continue to act very bizarre reporting various visual and auditory hallucinations and delusional behavior. Interval History Narrative: Patient is met within the group format. The patient has been accepted at [facility]. Reports that she is amenable, although is focused on medications and generally is quite demanding Affective: Patient reports no depression problems Psychotic: Patient denies any psychotic symptoms at this time Anxiety: Patient worries about a variety of problems primarily situational Eating and sleeping behaviors: Patient's eating behaviors are normal. Sleeping: She reports she has tried trazodone 25, but finds it makes her fuzzy Group Attendance: Frequent, although needs redirection Medication Side effects: See ROS below Behavioral problems/significant events overnight: None reported Staff Report: Patient generally is demanding at times, although frequently very needy Review Of Systems General: Denies fever or appetite changes Cardiovascular: Denies Chest pain or palpations GI: Denies Nausea, vomiting, or bowel changes Respiratory: Denies shortness of breath or cough Neuro: Patient reports chronic dizziness, no changes Derm: Denies any rashes or pruritus : Denies any dysuria or urinary problems MSK: Denies any muscle tightness or stiffness HEENT: Patient reports chronic headache, no changes. Psychotherapy None on this visit. Vital Signs Reviewed. Mental Status Examination General: Fair hygiene Speech: Fluent Thought processes: More linear MSK: Smooth and coordinated gait, no signs of tremors or involuntary orofacial movements Thought content: No bizarre ideation found Abstract reasoning, and computation: Improved Description of associations: Improved Description of abnormal or psychotic thoughts: Denies any suicidal or homicidal ideation. Denies auditory or visual hallucinations Judgment: Improved Insight: Improved Orientation: Alert and orientated 3 Cognition: Grossly normal Recent and remote memory: Intact Attention span and concentration: Impaired secondary to thought process Fund of knowledge: Adequate Mood: "I am fine" Affect: Much less irritable Diagnoses Schizophrenia. Assessment and Plan Schizophrenia. Will cut trazodone to 12.5 mg nightly as patient wants to take it more frequently. Will change Abilify to 2.5 mg BID as patient does not like 4 mg all at once. Disposition Patient will be discharged later next week to [facility]. She will be meeting with the [facility] membership sales representative today. Time Spent 15 minutes. Vital Signs Vital Signs Date Time Temp Pulse Resp B/P (MAP) Pulse Ox O2 Delivery O2 Flow Rate FiO2 09/27/19 06:08 97.6 63 16 128/62 (84) 09/24/19 16:25 Room Air Current Medications Current Medications Medications (Trade) Dose Ordered Sig/Dario Route PRN Reason Start Time Stop Time Status Last Admin Dose Admin Acetaminophen (Tylenol Tab) 650 mg Q6HP PRN PO HEADACHE or DISCOMFORT 08/22/19 23:15 Cancel Al Hydrox/Mg Hydrox/Simethicone (Mylanta) 30 ml Q4HP PRN PO HEARTBURN/INDIGESTION 08/22/19 23:15 Albuterol Sulfate (Proventil Neb) 2.5 mg Q6HP PRN NEB SOB/WHEEZING 08/23/19 17:30 09/22/19 09:58 DC 09/17/19 15:02 Aripiprazole (AbiLIFY) 4 mg QHS PO 08/23/19 21:00 09/26/19 20:00 Artificial Tears (Akwa Tears) 2 drop TIDP PRN OU DRY EYES 08/23/19 17:30 09/27/19 08:08 Ascorbic Acid (Vitamin C) 250 mg DAILY PO 08/29/19 09:00 09/27/19 08:07 Cetylpyridinium Chloride (Cepacol) 1 lio Q2HP PRN PO SORE THROAT 08/25/19 18:00 09/03/19 09:47 DC 09/03/19 08:15 Cetylpyridinium Chloride (Cepacol) 1 lio Q8HP PRN PO SORE THROAT 09/22/19 10:00 09/27/19 08:08 Cetylpyridinium Chloride (Cepacol) 1 lio TIDP PRN PO SORE THROAT 09/03/19 10:00 09/22/19 09:58 DC 09/22/19 08:12 Diphenhydramine HCl (Benadryl) 25 mg Q4HP PRN PO TREMORS 08/24/19 16:30 08/29/19 09:56 DC 08/29/19 08:09 Diphenhydramine HCl (Benadryl) 25 mg Q4HP PRN PO ANXIETY AND TREMOR 08/29/19 10:00 09/03/19 09:47 DC 09/03/19 08:14 Diphenhydramine HCl (Benadryl) 25 mg TIDP PRN PO ANXIETY AND TREMOR 09/03/19 10:00 09/26/19 15:23 Docusate Sodium (Colace) 100 mg BID PO 08/24/19 09:00 09/27/19 08:07 Fluticasone Propionate (Flovent Hfa 220mcg) 2 puff BIDP PRN INH SOB/WHEEZING 08/23/19 16:15 09/26/19 07:57 Home Med (Med Rec Complete!) ASDIRECTED XX 08/22/19 21:30 08/22/19 21:29 DC Ibuprofen (Advil) 400 mg Q4HP PRN PO PAIN 08/23/19 10:30 09/03/19 09:47 DC 09/03/19 08:14 Ibuprofen (Advil) 400 mg TIDP PRN PO PAIN 09/03/19 09:45 09/26/19 18:01 Magnesium Hydroxide (Milk Of Magnesia) 30 ml DAILYPRN PRN PO CONSTIPATION 08/22/19 23:15 Meclizine HCl (Antivert) 25 mg TIDP PRN PO DIZZINESS 08/23/19 21:15 09/27/19 08:08 Menthol/Methyl Salicylate (Bengay Cream) to neck and back QIDP PRN TOP pain 09/20/19 15:45 09/25/19 08:13 Miscellaneous (Unresolved Clarification Entry) SEE LABEL COMMENTS DAILY XX 09/23/19 09:00 09/23/19 11:26 DC Multivitamins (Theragram-M) 1 tab DAILY PO 08/25/19 09:00 09/27/19 08:07 Olanzapine (ZyPREXA ZYDIS) 2.5 mg Q4HP PRN PO ANXIETY/AGITATION 08/23/19 11:30 09/17/19 13:12 Olanzapine (ZyPREXA ZYDIS) 10 mg TID PRN PO agitation 08/23/19 09:00 Cancel Phenyleph/Shark Oil/Min Oil/Petrol (Preparation H Ointment) 1 dose QIDP PRN GA ITCHING 08/23/19 17:30 09/26/19 15:23 Ramelteon (Rozerem) 8 mg QHS PO 09/11/19 21:00 09/20/19 09:17 DC Senna (Senokot) 1 tab QHSP PRN PO CONSTIPATION 08/23/19 21:15 09/24/19 20:16 Trazodone HCl (Desyrel) 25 mg QHSP PRN PO INSOMNIA 09/11/19 11:30 09/26/19 23:03 Trazodone HCl (Desyrel) 50 mg QHSP PRN PO INSOMNIA 08/22/19 23:15 09/11/19 11:20 DC 09/10/19 21:02 Allergies Coded Allergies: azithromycin (Unverified Allergy, Mild, loose stools , 07/29/19) MIKE DE LA FUENTE DO Sep 27, 2019 08:24
[2019-09-27] MEDS ORDERED: ARIPiprazole 2 MG TAB PO SCH (10:00)
[2019-09-27] MEDS: IBUPROFEN 400 MG TAB PO PRN ×2 (12:06→20:20)
[2019-09-27] MEDS: diphenhydrAMINE 25 MG CAP PO PRN (12:43)
[2019-09-27 16:30] VITALS: BP 119/63
[2019-09-27] MEDS: FLUTICASONE HFA 220 MCG 12 GM INHALER (FLOVENT) INH PRN (20:22)
[2019-09-27] MEDS: traZODone 25MG PER 1/2 TABLET PO PRN (21:33)
[2019-09-28 06:23] VITALS: BP 119/74
[2019-09-28] MEDS: POLYVINYL ALCOHOL OPHTH SOLN 15 ML(LIQUITEARS) OU PRN ×2 (08:15→20:00)
[2019-09-28] MEDS: MULTIVITAMINS/MINERALS THERAP 1 TAB PO SCH (08:15)
[2019-09-28] MEDS: CEPACOL LOZENGE PO PRN ×2 (08:15→20:01)
[2019-09-28] MEDS: ASCORBIC ACID 250 MG TAB PO SCH (08:15)
[2019-09-28] MEDS: MECLIZINE 25 MG TABLET PO PRN ×2 (08:15→17:01)
[2019-09-28] MEDS: DOCUSATE SODIUM 100 MG CAP PO SCH ×2 (08:15→20:00)
[2019-09-28] MEDS: FLUTICASONE HFA 220 MCG 12 GM INHALER (FLOVENT) INH PRN ×2 (08:18→20:01)
[2019-09-28] MEDS: PREPARATION H OINTMENT (HEMORRHOID) PR PRN (08:18)
[2019-09-28] MEDS: PILL CUTTER 1 EACH XX PRN ×3 (08:19→21:33)
--- NOTE | 2019-09-28 08:27 | MHIPNPDOC ---
[facility] Progress Note Progress Note Inpatient Progress Note Betzaida Ayers MRN: N/A Date of : N/A Date of Service: 09/28/2019 History of Present Illness The patient, a 68-year-old woman with a reported history of a psychotic disorder, presents to [facility] initially admitted to medicine due to weakness. She has been noted by EMS to be walking around outside and acting bizarrely. The patient had been fairly guarded and did not answer any questions and appeared to continue to act very bizarre reporting various visual and auditory hallucinations and delusional behavior. Interval History Narrative: Patient is met within the group format. The patient is currently accepted at [facility]. She reports that she is feeling "just fine," appears continually focused on medications and is generally demanding. Affective: Patient reports no depression problems Psychotic: Patient denies any psychotic symptoms at this time Anxiety: Patient worries about a variety of problems primarily situational Eating and sleeping behaviors: Patient's eating behaviors are normal. Sleeping: She reports she has tried trazodone 25, but finds it makes her fuzzy Group Attendance: Frequent, although needs redirection Medication Side effects: See ROS below Behavioral problems/significant events overnight: None reported Staff Report: Patient generally is demanding at times, although frequently very needy Review Of Systems General: Denies fever or appetite changes Cardiovascular: Denies Chest pain or palpations GI: Denies Nausea, vomiting, or bowel changes Respiratory: Denies shortness of breath or cough Neuro: Patient reports chronic dizziness, no changes Derm: Denies any rashes or pruritus : Denies any dysuria or urinary problems MSK: Denies any muscle tightness or stiffness HEENT: Patient reports chronic headache, no changes. Psychotherapy None on this visit. Vital Signs Reviewed. Mental Status Examination General: Fair hygiene Speech: Fluent Thought processes: More linear MSK: Smooth and coordinated gait, no signs of tremors or involuntary orofacial movements Thought content: No bizarre ideation found Abstract reasoning, and computation: Improved Description of associations: Improved Description of abnormal or psychotic thoughts: Denies any suicidal or homicidal ideation. Denies auditory or visual hallucinations Judgment: Improved Insight: Improved Orientation: Alert and orientated 3 Cognition: Grossly normal Recent and remote memory: Intact Attention span and concentration: Impaired secondary to thought process Fund of knowledge: Adequate Mood: "I am fine" Affect: Euthymic Diagnoses Schizophrenia. Assessment and Plan Schizophrenia. Will continue trazodone 12.5 mg nightly. Patient wants to try 2 mg of Abilify during the 2.5 mg at night as she reports that she feels some sedation during the day from 2.5. Disposition Patient will be discharged later next week to [facility]. Time Spent 15 minutes. Tuesday Vital Signs Vital Signs Date Time Temp Pulse Resp B/P (MAP) Pulse Ox O2 Delivery O2 Flow Rate FiO2 09/28/19 06:23 98.3 62 16 119/74 (89) 09/24/19 16:25 Room Air Current Medications Current Medications Medications (Trade) Dose Ordered Sig/Dario Route PRN Reason Start Time Stop Time Status Last Admin Dose Admin Acetaminophen (Tylenol Tab) 650 mg Q6HP PRN PO HEADACHE or DISCOMFORT 08/22/19 23:15 Cancel Al Hydrox/Mg Hydrox/Simethicone (Mylanta) 30 ml Q4HP PRN PO HEARTBURN/INDIGESTION 08/22/19 23:15 Albuterol Sulfate (Proventil Neb) 2.5 mg Q6HP PRN NEB SOB/WHEEZING 08/23/19 17:30 09/22/19 09:58 DC 09/17/19 15:02 Aripiprazole (AbiLIFY) 2.5 mg BID PO 09/27/19 21:00 09/28/19 08:15 Aripiprazole (AbiLIFY) 4 mg BID PO 09/27/19 10:00 09/27/19 10:38 DC Aripiprazole (AbiLIFY) 4 mg QHS PO 08/23/19 21:00 09/27/19 09:48 DC 09/26/19 20:00 Artificial Tears (Akwa Tears) 2 drop TIDP PRN OU DRY EYES 08/23/19 17:30 09/28/19 08:15 Ascorbic Acid (Vitamin C) 250 mg DAILY PO 08/29/19 09:00 09/28/19 08:15 Cetylpyridinium Chloride (Cepacol) 1 lio Q2HP PRN PO SORE THROAT 08/25/19 18:00 09/03/19 09:47 DC 09/03/19 08:15 Cetylpyridinium Chloride (Cepacol) 1 lio Q8HP PRN PO SORE THROAT 09/22/19 10:00 09/28/19 08:15 Cetylpyridinium Chloride (Cepacol) 1 lio TIDP PRN PO SORE THROAT 09/03/19 10:00 09/22/19 09:58 DC 09/22/19 08:12 Diphenhydramine HCl (Benadryl) 25 mg Q4HP PRN PO TREMORS 08/24/19 16:30 08/29/19 09:56 DC 08/29/19 08:09 Diphenhydramine HCl (Benadryl) 25 mg Q4HP PRN PO ANXIETY AND TREMOR 08/29/19 10:00 09/03/19 09:47 DC 09/03/19 08:14 Diphenhydramine HCl (Benadryl) 25 mg TIDP PRN PO ANXIETY AND TREMOR 09/03/19 10:00 09/27/19 12:43 Docusate Sodium (Colace) 100 mg BID PO 08/24/19 09:00 09/28/19 08:15 Fluticasone Propionate (Flovent Hfa 220mcg) 2 puff BIDP PRN INH SOB/WHEEZING 08/23/19 16:15 09/28/19 08:18 Home Med (Med Rec Complete!) ASDIRECTED XX 08/22/19 21:30 08/22/19 21:29 DC Ibuprofen (Advil) 400 mg Q4HP PRN PO PAIN 08/23/19 10:30 09/03/19 09:47 DC 09/03/19 08:14 Ibuprofen (Advil) 400 mg TIDP PRN PO PAIN 09/03/19 09:45 09/27/19 20:20 Magnesium Hydroxide (Milk Of Magnesia) 30 ml DAILYPRN PRN PO CONSTIPATION 08/22/19 23:15 Meclizine HCl (Antivert) 25 mg TIDP PRN PO DIZZINESS 08/23/19 21:15 09/28/19 08:15 Menthol/Methyl Salicylate (Bengay Cream) to neck and back QIDP PRN TOP pain 09/20/19 15:45 09/25/19 08:13 Miscellaneous (Unresolved Clarification Entry) SEE LABEL COMMENTS DAILY XX 09/23/19 09:00 09/23/19 11:26 DC Multivitamins (Theragram-M) 1 tab DAILY PO 08/25/19 09:00 09/28/19 08:15 Olanzapine (ZyPREXA ZYDIS) 2.5 mg Q4HP PRN PO ANXIETY/AGITATION 08/23/19 11:30 09/17/19 13:12 Olanzapine (ZyPREXA ZYDIS) 10 mg TID PRN PO agitation 08/23/19 09:00 Cancel Phenyleph/Shark Oil/Min Oil/Petrol (Preparation H Ointment) 1 dose QIDP PRN [place] ITCHING 08/23/19 17:30 09/28/19 08:18 Ramelteon (Rozerem) 8 mg QHS PO 09/11/19 21:00 09/20/19 09:17 DC Senna (Senokot) 1 tab QHSP PRN PO CONSTIPATION 08/23/19 21:15 09/24/19 20:16 Trazodone HCl (Desyrel) 12.5 mg QHSP PRN PO INSOMNIA 09/27/19 10:00 09/27/19 21:33 Trazodone HCl (Desyrel) 25 mg QHSP PRN PO INSOMNIA 09/11/19 11:30 09/27/19 09:53 DC 09/26/19 23:03 Trazodone HCl (Desyrel) 50 mg QHSP PRN PO INSOMNIA 08/22/19 23:15 09/11/19 11:20 DC 09/10/19 21:02 Allergies Coded Allergies: azithromycin (Unverified Allergy, Mild, loose stools , 07/29/19) MIKE DE LA FUENTE DO Sep 28, 2019 08:27
[2019-09-28] MEDS: IBUPROFEN 400 MG TAB PO PRN ×2 (12:49→20:59)
[2019-09-28] MEDS: ANALGESIC BALM CRM 120 GM TOP PRN (12:49)
[2019-09-28 16:37] VITALS: BP 107/71
[2019-09-28] MEDS: traZODone 25MG PER 1/2 TABLET PO PRN (21:33)
[2019-09-29 06:21] VITALS: BP 134/74
[2019-09-29] MEDS: MECLIZINE 25 MG TABLET PO PRN ×2 (08:09→15:00)
[2019-09-29] MEDS: POLYVINYL ALCOHOL OPHTH SOLN 15 ML(LIQUITEARS) OU PRN ×2 (08:09→20:00)
[2019-09-29] MEDS: FLUTICASONE HFA 220 MCG 12 GM INHALER (FLOVENT) INH PRN ×2 (08:09→20:00)
[2019-09-29] MEDS: MULTIVITAMINS/MINERALS THERAP 1 TAB PO SCH (08:09)
[2019-09-29] MEDS: ASCORBIC ACID 250 MG TAB PO SCH (08:10)
[2019-09-29] MEDS: CEPACOL LOZENGE PO PRN ×2 (08:10→20:00)
[2019-09-29] MEDS: ARIPiprazole 2 MG TAB PO SCH (08:10)
[2019-09-29] MEDS: DOCUSATE SODIUM 100 MG CAP PO SCH ×2 (08:10→20:00)
[2019-09-29] MEDS: IBUPROFEN 400 MG TAB PO PRN ×2 (10:56→20:01)
[2019-09-29 15:10] VITALS: BP 109/55
[2019-09-29] MEDS: PILL CUTTER 1 EACH XX PRN (20:02)
[2019-09-29] MEDS: traZODone 25MG PER 1/2 TABLET PO PRN (21:55)
[2019-09-30 06:14] VITALS: BP 116/56
[2019-09-30] MEDS: DOCUSATE SODIUM 100 MG CAP PO SCH ×2 (08:07→20:00)
[2019-09-30] MEDS: MULTIVITAMINS/MINERALS THERAP 1 TAB PO SCH (08:07)
[2019-09-30] MEDS: FLUTICASONE HFA 220 MCG 12 GM INHALER (FLOVENT) INH PRN ×2 (08:07→20:00)
[2019-09-30] MEDS: ASCORBIC ACID 250 MG TAB PO SCH (08:07)
[2019-09-30] MEDS: MECLIZINE 25 MG TABLET PO PRN ×2 (08:07→16:34)
[2019-09-30] MEDS: POLYVINYL ALCOHOL OPHTH SOLN 15 ML(LIQUITEARS) OU PRN ×2 (08:07→20:00)
[2019-09-30] MEDS: ARIPiprazole 2 MG TAB PO SCH (08:07)
[2019-09-30] MEDS: CEPACOL LOZENGE PO PRN ×2 (08:10→20:00)
[2019-09-30] MEDS: IBUPROFEN 400 MG TAB PO PRN (13:27)
[2019-09-30 17:52] VITALS: BP 123/60
[2019-09-30] MEDS: PILL CUTTER 1 EACH XX PRN (19:59)
[2019-09-30] MEDS: traZODone 25MG PER 1/2 TABLET PO PRN (22:54)
[2019-10-01 05:58] VITALS: BP 118/65
[2019-10-01] MEDS: ASCORBIC ACID 250 MG TAB PO SCH (08:32)
--- NOTE | 2019-10-01 08:33 | MHIPNPDOC ---
[facility] Progress Note Progress Note Inpatient Progress Note Betzaida Ayers MRN: N/A Date of : N/A Date of Service: 10/01/2019 History of Present Illness The patient, a 68-year-old woman with a reported history of a psychotic disorder, presents to [facility] initially admitted to medicine due to weakness. She has been noted by EMS to be walking around outside and acting bizarrely. The patient had been fairly guarded and did not answer any questions and appeared to continue to act very bizarre reporting various visual and auditory hallucinations and delusional behavior. Interval History Narrative: Patient is met with today in the group format. She is currently waiting to go to [facility]. No demanding and is complimentary today Affective: Patient reports no depression problems Psychotic: Patient denies any psychotic symptoms at this time Anxiety: Patient worries about a variety of problems primarily situational Eating and sleeping behaviors: Appears to be normalizing Group Attendance: Frequent, although needs redirection Medication Side effects: See ROS below Behavioral problems/significant events overnight: None reported Staff Report: Patient generally is demanding at times, although frequently very needy Review Of Systems General: Denies fever or appetite changes Cardiovascular: Denies Chest pain or palpations GI: Denies Nausea, vomiting, or bowel changes Respiratory: Denies shortness of breath or cough Neuro: Patient reports chronic dizziness, no changes Derm: Denies any rashes or pruritus : Denies any dysuria or urinary problems MSK: Denies any muscle tightness or stiffness HEENT: Patient reports chronic headache, no changes. Psychotherapy None on this visit. Vital Signs Reviewed. Mental Status Examination General: Fair hygiene Speech: Fluent Thought processes: More linear MSK: Smooth and coordinated gait, no signs of tremors or involuntary orofacial movements Thought content: No bizarre ideation found Abstract reasoning, and computation: Improved Description of associations: Improved Description of abnormal or psychotic thoughts: Denies any suicidal or homicidal ideation. Denies auditory or visual hallucinations Judgment: Improved Insight: Improved Orientation: Alert and orientated 3 Cognition: Grossly normal Recent and remote memory: Intact Attention span and concentration: Impaired secondary to thought process Fund of knowledge: Adequate Mood: "I am fine" Affect: Euthymic Diagnoses Schizophrenia. Assessment and Plan Schizophrenia. Continue trazodone 12.5 mg nightly. Patient wants Abilify changed to 4 mg nightly as she was unhappy with the Abilify during the day. Disposition Discharged to [facility] on Tuesday. Time Spent 15 minutes. Tuesday Vital Signs Vital Signs Date Time Temp Pulse Resp B/P (MAP) Pulse Ox O2 Delivery O2 Flow Rate FiO2 10/01/19 05:58 97.6 67 18 118/65 (82) 09/28/19 16:37 99 Room Air Current Medications Current Medications Medications (Trade) Dose Ordered Sig/Dario Route PRN Reason Start Time Stop Time Status Last Admin Dose Admin Acetaminophen (Tylenol Tab) 650 mg Q6HP PRN PO HEADACHE or DISCOMFORT 08/22/19 23:15 Cancel Al Hydrox/Mg Hydrox/Simethicone (Mylanta) 30 ml Q4HP PRN PO HEARTBURN/INDIGESTION 08/22/19 23:15 Albuterol Sulfate (Proventil Neb) 2.5 mg Q6HP PRN NEB SOB/WHEEZING 08/23/19 17:30 09/22/19 09:58 DC 09/17/19 15:02 Aripiprazole (AbiLIFY) 2 mg QAM PO 09/29/19 09:00 09/30/19 08:07 Aripiprazole (AbiLIFY) 2.5 mg BID PO 09/27/19 21:00 09/28/19 09:50 DC 09/28/19 08:15 Aripiprazole (AbiLIFY) 2.5 mg QHS PO 09/28/19 21:00 09/30/19 20:00 Aripiprazole (AbiLIFY) 4 mg BID PO 09/27/19 10:00 09/27/19 10:38 DC Aripiprazole (AbiLIFY) 4 mg QHS PO 08/23/19 21:00 09/27/19 09:48 DC 09/26/19 20:00 Artificial Tears (Akwa Tears) 2 drop TIDP PRN OU DRY EYES 08/23/19 17:30 09/30/19 20:00 Ascorbic Acid (Vitamin C) 250 mg DAILY PO 08/29/19 09:00 09/30/19 08:07 Cetylpyridinium Chloride (Cepacol) 1 lio Q2HP PRN PO SORE THROAT 08/25/19 18:00 09/03/19 09:47 DC 09/03/19 08:15 Cetylpyridinium Chloride (Cepacol) 1 lio Q8HP PRN PO SORE THROAT 09/22/19 10:00 09/30/19 20:00 Cetylpyridinium Chloride (Cepacol) 1 lio TIDP PRN PO SORE THROAT 09/03/19 10:00 09/22/19 09:58 DC 09/22/19 08:12 Diphenhydramine HCl (Benadryl) 25 mg Q4HP PRN PO TREMORS 08/24/19 16:30 08/29/19 09:56 DC 08/29/19 08:09 Diphenhydramine HCl (Benadryl) 25 mg Q4HP PRN PO ANXIETY AND TREMOR 08/29/19 10:00 09/03/19 09:47 DC 09/03/19 08:14 Diphenhydramine HCl (Benadryl) 25 mg TIDP PRN PO ANXIETY AND TREMOR 09/03/19 10:00 09/27/19 12:43 Docusate Sodium (Colace) 100 mg BID PO 08/24/19 09:00 09/30/19 20:00 Fluticasone Propionate (Flovent Hfa 220mcg) 2 puff BIDP PRN INH SOB/WHEEZING 08/23/19 16:15 09/30/19 20:00 Home Med (Med Rec Complete!) ASDIRECTED XX 08/22/19 21:30 08/22/19 21:29 DC Ibuprofen (Advil) 400 mg Q4HP PRN PO PAIN 08/23/19 10:30 09/03/19 09:47 DC 09/03/19 08:14 Ibuprofen (Advil) 400 mg TIDP PRN PO PAIN 09/03/19 09:45 09/30/19 13:27 Magnesium Hydroxide (Milk Of Magnesia) 30 ml DAILYPRN PRN PO CONSTIPATION 08/22/19 23:15 Meclizine HCl (Antivert) 25 mg TIDP PRN PO DIZZINESS 08/23/19 21:15 09/30/19 16:34 Menthol/Methyl Salicylate (Bengay Cream) to neck and back QIDP PRN TOP pain 09/20/19 15:45 09/28/19 12:49 Miscellaneous (Unresolved Clarification Entry) SEE LABEL COMMENTS DAILY XX 09/23/19 09:00 09/23/19 11:26 DC Multivitamins (Theragram-M) 1 tab DAILY PO 08/25/19 09:00 09/30/19 08:07 Olanzapine (ZyPREXA ZYDIS) 2.5 mg Q4HP PRN PO ANXIETY/AGITATION 08/23/19 11:30 09/17/19 13:12 Olanzapine (ZyPREXA ZYDIS) 10 mg TID PRN PO agitation 08/23/19 09:00 Cancel Phenyleph/Shark Oil/Min Oil/Petrol (Preparation H Ointment) 1 dose QIDP PRN [place] ITCHING 08/23/19 17:30 09/28/19 08:18 Ramelteon (Rozerem) 8 mg QHS PO 09/11/19 21:00 09/20/19 09:17 DC Senna (Senokot) 1 tab QHSP PRN PO CONSTIPATION 08/23/19 21:15 09/24/19 20:16 Trazodone HCl (Desyrel) 12.5 mg QHSP PRN PO INSOMNIA 09/27/19 10:00 09/30/19 22:54 Trazodone HCl (Desyrel) 25 mg QHSP PRN PO INSOMNIA 09/11/19 11:30 09/27/19 09:53 DC 09/26/19 23:03 Trazodone HCl (Desyrel) 50 mg QHSP PRN PO INSOMNIA 08/22/19 23:15 09/11/19 11:20 DC 09/10/19 21:02 Allergies Coded Allergies: azithromycin (Unverified Allergy, Mild, loose stools , 07/29/19) MIKE DE LA FUENTE DO Oct 01, 2019 08:33
[2019-10-01] MEDS: POLYVINYL ALCOHOL OPHTH SOLN 15 ML(LIQUITEARS) OU PRN ×2 (08:36→17:53)
[2019-10-01] MEDS: CEPACOL LOZENGE PO PRN (08:36)
[2019-10-01] MEDS: MECLIZINE 25 MG TABLET PO PRN ×2 (08:36→17:52)
[2019-10-01] MEDS: FLUTICASONE HFA 220 MCG 12 GM INHALER (FLOVENT) INH PRN ×2 (08:39→20:01)
[2019-10-01] MEDS: MULTIVITAMINS/MINERALS THERAP 1 TAB PO SCH (09:22)
[2019-10-01] MEDS: ARIPiprazole 2 MG TAB PO SCH (09:22)
[2019-10-01] MEDS: DOCUSATE SODIUM 100 MG CAP PO SCH ×2 (09:22→20:02)
[2019-10-01] MEDS: IBUPROFEN 400 MG TAB PO PRN (17:53)
[2019-10-01 18:06] VITALS: BP 116/58
[2019-10-01] MEDS ORDERED: ARIPiprazole 2 MG TAB PO SCH ×2 (21:00)
[2019-10-02 05:51] VITALS: BP 136/63
[2019-10-02] MEDS: MULTIVITAMINS/MINERALS THERAP 1 TAB PO SCH (08:04)
[2019-10-02] MEDS: DOCUSATE SODIUM 100 MG CAP PO SCH ×2 (08:04→20:02)
[2019-10-02] MEDS: CEPACOL LOZENGE PO PRN (08:04)
[2019-10-02] MEDS: FLUTICASONE HFA 220 MCG 12 GM INHALER (FLOVENT) INH PRN ×2 (08:05→20:00)
[2019-10-02] MEDS: POLYVINYL ALCOHOL OPHTH SOLN 15 ML(LIQUITEARS) OU PRN ×2 (08:05→20:01)
[2019-10-02] MEDS: ASCORBIC ACID 250 MG TAB PO SCH (08:05)
--- NOTE | 2019-10-02 09:43 | MHIPNPDOC ---
[facility] Progress Note Progress Note DATE OF SERVICE: 10/02/19 HISTORY: . VITAL SIGNS: See below. NEW TEST RESULTS: . CURRENT MEDICATIONS: See below. MENTAL STATUS EXAMINATION: Patient is a -year old female, who is . Speech: Is . Language skills are . Thought processes including: . Thought content: . Abstract reasoning, and computation: . Description of asso ciations: . Description of abnormal or psychotic thoughts: . Judgment: . Insight: [very limited, good, fair. poor]. Orientation: . Recent and remote memory: . Attention span and concentration: . Language: . Fund of knowledge: . Mood: . Affect: . DIAGNOSES: 1. . 2. . 3. . ASSESSMENT: MANAGEMENT PLAN: . TIME SPENT: minutes. Vital Signs Vital Signs Date Time Temp Pulse Resp B/P (MAP) Pulse Ox O2 Delivery O2 Flow Rate FiO2 10/02/19 05:51 98.7 64 20 136/63 (87) Room Air 09/28/19 16:37 99 Current Medications Current Medications Medications (Trade) Dose Ordered Sig/Dario Route PRN Reason Start Time Stop Time Status Last Admin Dose Admin Acetaminophen (Tylenol Tab) 650 mg Q6HP PRN PO HEADACHE or DISCOMFORT 08/22/19 23:15 Cancel Al Hydrox/Mg Hydrox/Simethicone (Mylanta) 30 ml Q4HP PRN PO HEARTBURN/INDIGESTION 08/22/19 23:15 Albuterol Sulfate (Proventil Neb) 2.5 mg Q6HP PRN NEB SOB/WHEEZING 08/23/19 17:30 09/22/19 09:58 DC 09/17/19 15:02 Aripiprazole (AbiLIFY) 2 mg QAM PO 09/29/19 09:00 10/01/19 11:00 DC 10/01/19 09:22 Aripiprazole (AbiLIFY) 2 mg QHS PO 10/01/19 21:00 10/02/19 09:00 DC 10/01/19 20:01 Aripiprazole (AbiLIFY) 2.5 mg BID PO 09/27/19 21:00 09/28/19 09:50 DC 09/28/19 08:15 Aripiprazole (AbiLIFY) 2.5 mg QHS PO 09/28/19 21:00 10/01/19 11:00 DC 09/30/19 20:00 Aripiprazole (AbiLIFY) 4 mg BID PO 09/27/19 10:00 09/27/19 10:38 DC Aripiprazole (AbiLIFY) 4 mg QHS PO 08/23/19 21:00 09/27/19 09:48 DC 09/26/19 20:00 Aripiprazole (AbiLIFY) 4 mg QHS PO 10/01/19 21:00 10/01/19 11:02 DC Aripiprazole (AbiLIFY) 4 mg QHS PO 10/02/19 21:00 Artificial Tears (Akwa Tears) 2 drop TIDP PRN OU DRY EYES 08/23/19 17:30 10/02/19 08:05 Ascorbic Acid (Vitamin C) 250 mg DAILY PO 08/29/19 09:00 10/02/19 08:05 Cetylpyridinium Chloride (Cepacol) 1 lio Q2HP PRN PO SORE THROAT 08/25/19 18:00 09/03/19 09:47 DC 09/03/19 08:15 Cetylpyridinium Chloride (Cepacol) 1 lio Q8HP PRN PO SORE THROAT 09/22/19 10:00 10/02/19 08:04 Cetylpyridinium Chloride (Cepacol) 1 lio TIDP PRN PO SORE THROAT 09/03/19 10:00 09/22/19 09:58 DC 09/22/19 08:12 Diphenhydramine HCl (Benadryl) 25 mg Q4HP PRN PO TREMORS 08/24/19 16:30 08/29/19 09:56 DC 08/29/19 08:09 Diphenhydramine HCl (Benadryl) 25 mg Q4HP PRN PO ANXIETY AND TREMOR 08/29/19 10:00 09/03/19 09:47 DC 09/03/19 08:14 Diphenhydramine HCl (Benadryl) 25 mg TIDP PRN PO ANXIETY AND TREMOR 09/03/19 10:00 09/27/19 12:43 Docusate Sodium (Colace) 100 mg BID PO 08/24/19 09:00 10/02/19 08:04 Fluticasone Propionate (Flovent Hfa 220mcg) 2 puff BIDP PRN INH SOB/WHEEZING 08/23/19 16:15 10/02/19 08:05 Home Med (Med Rec Complete!) ASDIRECTED XX 08/22/19 21:30 08/22/19 21:29 DC Ibuprofen (Advil) 400 mg Q4HP PRN PO PAIN 08/23/19 10:30 09/03/19 09:47 DC 09/03/19 08:14 Ibuprofen (Advil) 400 mg TIDP PRN PO PAIN 09/03/19 09:45 10/01/19 17:53 Magnesium Hydroxide (Milk Of Magnesia) 30 ml DAILYPRN PRN PO CONSTIPATION 08/22/19 23:15 Meclizine HCl (Antivert) 25 mg TIDP PRN PO DIZZINESS 08/23/19 21:15 10/01/19 17:52 Menthol/Methyl Salicylate (Bengay Cream) to neck and back QIDP PRN TOP pain 09/20/19 15:45 09/28/19 12:49 Miscellaneous (Unresolved Clarification Entry) SEE LABEL COMMENTS DAILY XX 09/23/19 09:00 09/23/19 11:26 DC Multivitamins (Theragram-M) 1 tab DAILY PO 08/25/19 09:00 10/02/19 08:04 Olanzapine (ZyPREXA ZYDIS) 2.5 mg Q4HP PRN PO ANXIETY/AGITATION 08/23/19 11:30 09/17/19 13:12 Olanzapine (ZyPREXA ZYDIS) 10 mg TID PRN PO agitation 08/23/19 09:00 Cancel Phenyleph/Shark Oil/Min Oil/Petrol (Preparation H Ointment) 1 dose QIDP PRN [place] ITCHING 08/23/19 17:30 09/28/19 08:18 Ramelteon (Rozerem) 8 mg QHS PO 09/11/19 21:00 09/20/19 09:17 DC Senna (Senokot) 1 tab QHSP PRN PO CONSTIPATION 08/23/19 21:15 09/24/19 20:16 Trazodone HCl (Desyrel) 12.5 mg QHSP PRN PO INSOMNIA 09/27/19 10:00 09/30/19 22:54 Trazodone HCl (Desyrel) 25 mg QHSP PRN PO INSOMNIA 09/11/19 11:30 09/27/19 09:53 DC 09/26/19 23:03 Trazodone HCl (Desyrel) 50 mg QHSP PRN PO INSOMNIA 08/22/19 23:15 09/11/19 11:20 DC 09/10/19 21:02 Allergies Coded Allergies: azithromycin (Unverified Allergy, Mild, loose stools , 07/29/19) MIKE DE LA FUENTE DO Oct 02, 2019 09:43
[2019-10-02] MEDS ORDERED: SORE15LO PO (10:12)
[2019-10-02] MEDS ORDERED: POLYOPD OU (10:12)
[2019-10-02] MEDS ORDERED: MECL-86 PO (10:12)
[2019-10-02] MEDS ORDERED: SENN18TA PO (10:12)
[2019-10-02] MEDS ORDERED: DOCU100C16 PO (10:12)
[2019-10-02] MEDS ORDERED: ABIL1TAB13 PO (10:12)
[2019-10-02] MEDS ORDERED: VITMTA PO (10:12)
[2019-10-02] MEDS ORDERED: VITA1TAB23 PO (10:12)
[2019-10-02] MEDS ORDERED: DIPH25CA32 PO (10:12)
[2019-10-02] MEDS ORDERED: MUSCCRE9 TOP (10:12)
[2019-10-02] MEDS ORDERED: TRAZ-252 PO (10:12)
[2019-10-02] MEDS ORDERED: FLUT22IN INH (10:12)
--- NOTE | 2019-10-02 10:15 | MHDSPDOC ---
[facility] Discharge Summary Discharge Summary DATE OF ADMISSION: Aug 22, 2019 at 23:15 DATE OF DISCHARGE: 10/02/19 Discharge Betzaida Ayers MRN: N/A Date of : N/A Date of Service: 10/02/2019 Diagnoses Schizophrenia. History of Present Illness The patient, a 68-year-old woman with a reported history of a psychotic disorder, presents to [facility] initially admitted to medicine due to weakness. She has been noted by EMS to be walking around outside and a cting bizarrely. The patient had been fairly guarded and did not answer any questions and appeared to continue to act very bizarre reporting various visual and auditory hallucinations and delusional behavior. Consultants Involved Hospitalist/PCP screening Treatment and Progress On The Unit Patient had an extensive admission. The patient was generally started on Abilify, titrated up to 4 mg nightly of which she was able to tolerate. She was unable to tolerate more due to her medical status. She generally was focused on medications during the entirety. Initially somewhat psychotic, she improved well and returned to a normal mental status. Her disposition was difficult due to her needs. Eventually we had found a supported living situation that she could go to . She was effectively treated for insomnia with 12.5 mg of trazodone, as she reported that she became dizzy more often. 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 She was converted to [facility] status as she was waiting and then eventually triaged into out there with a normal mental status. Discharge Assessment 68-year-old woman with a history of a psychotic disorder such as schizophrenia, resolves well on Abilify. Her placement appeared to be the primary issue on this admission. Eventually she was able to be accepted to [facility] where she was accepted and transferred to. The patient at the time of discharge did not meet criteria for involuntary admission/extension due to having a normal mental status exam, fair insight into the situation, They are engaged in the discharge process, as well as being friendly and amenable in behavioral control and havent been engaging in any observed concerning behavior or ideation recently. They decline voluntary extension/admission at this time and must be discharged in good radha, as Im unable to make a case for holding the patient against their will. They may have historical risk factors of admissions and other interactions with psychiatry however, those are not modifiable from a clinical perspective. The patient will need to be discharged in good radha." this would be in the assessment/plan section (consult) and/or the discharge assessment on the discharge note. Mental Status Examination General: Well dressed with good hygiene Speech: Spontaneous and fluid Thought processes: Linear and logical MSK: Smooth and coordinated gait, no signs of tremors or involuntary orofacial movements Thought content: Future orientated Abstract reasoning, and computation: Intact Description of associations: Intact Description of abnormal or psychotic thoughts: Denies any suicidal or homicidal ideation. Denies any auditory or visual hallucinations. Does not appear to be responding to internal stimuli. Does not appear to be endorsing any bizarre or paranoid ideation. Judgment: fair Insight: fair Orientation: Alert and orientated 3 Cognition: Grossly normal Recent and remote memory: Intact Attention span and concentration: Intact Fund of knowledge: Adequate Mood: "okay" Affect: Euthymic with a full range Follow Up The social work team worked during the predischarge meeting in order to evaluate for further issues of lethality address them fully before discharge. They worked on safety planning with the patient's family members in order to ensure that the patient will have a safe and effective discharge. Time Spent The amount of time spent in the coordination of care for this patient was approximately 90 minutes. Tuesday Vital Signs/I&Os Vital Signs Date Time Temp Pulse Resp B/P (MAP) Pulse Ox O2 Delivery O2 Flow Rate FiO2 10/02/19 05:51 98.7 64 20 136/63 (87) Room Air 09/28/19 16:37 99 Medications Scheduled Aripiprazole (Abilify) 2 Mg Tablet, 4 MG PO QHS for thoughts for 30 Days, #30 Ascorbic Acid (Vitamin C) 250 Mg Tablet, 250 MG PO DAILY for vitamins for 30 Days, #30 Docusate Sodium (Docusate Sodium) 100 Mg Capsule, 100 MG PO BID for constipation for 30 Days, #60 Multivitamins (Thera M Plus Tablet) 1 Each Tablet, 1 TAB PO DAILY for multivatmin for 30 Days, #30 Scheduled PRN Benzocaine/Menthol (Sore Throat Lozenge) 1 Each Lozenge, 1 PRATIMA PO Q8HP PRN for SORE THROAT for 30 Days, #60 Diphenhydramine HCl (Diphenhydramine HCl) 25 Mg Capsule, 25 MG PO TIDP PRN for ANXIETY AND TREMOR for 30 Days, #30 Fluticasone Propionate (Flovent Hfa) 220 Mcg/Act Aer.w.adap, 2 PUFF INH BIDP PRN for SOB/WHEEZING for 30 Days, #1 Meclizine HCl (Meclizine HCl) 25 Mg Tablet, 25 MG PO TIDP PRN for DIZZINESS for 30 Days, #60 Methyl Salicylate/Menthol (Muscle Rub Cream) 85 Gm Cream..g., 0 DOSE TOP QIDP PRN for pain for 30 Days, #500 Polyvinyl Alcohol (Artificial Tears) 15 Ml Drops, 2 DROP OU TIDP PRN for DRY EYE S for 30 Days, #1 Senna (Senna Lax) 8.6 Mg Tablet, 1 TAB PO QHSP PRN for CONSTIPATION for 30 Days, #30 Trazodone HCl (Trazodone HCl) 50 Mg Tablet, 12.5 MG PO QHSP PRN for INSOMNIA for 30 Days, #30 Allergies Coded Allergies: azithromycin (Unverified Allergy, Mild, loose stools , 07/29/19) MIKE DE LA FUENTE DO Oct 02, 2019 10:15
[2019-10-02] MEDS: IBUPROFEN 400 MG TAB PO PRN (10:29)
[2019-10-02] MEDS: MECLIZINE 25 MG TABLET PO PRN (16:17)
[2019-10-02 16:25] VITALS: BP 118/70
[2019-10-02] MEDS: ANALGESIC BALM CRM 120 GM TOP PRN (20:02)
[2019-10-02] MEDS: PREPARATION H OINTMENT (HEMORRHOID) PR PRN (20:02)
[2019-10-02] MEDS ORDERED: ARIPiprazole 2 MG TAB PO SCH (21:00)
[2019-10-02] MEDS: traZODone 25MG PER 1/2 TABLET PO PRN (23:14)
[2019-10-03 05:49] VITALS: BP 116/56
[2019-10-03] MEDS: FLUTICASONE HFA 220 MCG 12 GM INHALER (FLOVENT) INH PRN (07:58)
[2019-10-03] MEDS: POLYVINYL ALCOHOL OPHTH SOLN 15 ML(LIQUITEARS) OU PRN (07:59)
[2019-10-03] MEDS: IBUPROFEN 400 MG TAB PO PRN (08:00)
[2019-10-03] MEDS: DOCUSATE SODIUM 100 MG CAP PO SCH (08:00)
[2019-10-03] MEDS: ASCORBIC ACID 250 MG TAB PO SCH (08:00)
[2019-10-03] MEDS: MULTIVITAMINS/MINERALS THERAP 1 TAB PO SCH (08:01)
[2019-10-03] MEDS: MECLIZINE 25 MG TABLET PO PRN (08:01)
[2019-10-03] MEDS: CEPACOL LOZENGE PO PRN (08:27)
== END 2019-10-03 09:28 | disposition home or self-care (01) | DRG 885 ==
LOC: M ED 16:40 → M ED INP 23:15 → M PSY 08-23 09:54
PROVIDERS: ADMIT Psychiatry & Neurology Psychiatry; ATTEND Psychiatry & Neurology Addiction Medicine
DX: F20.9 Schizophrenia, unspecified (principal); R45.851 Suicidal ideations; Z79.899 Other long term (current) drug therapy; Z88.8 Allergy status to other drugs, medicaments and biological substances; J44.9 Chronic obstructive pulmonary disease, unspecified; F43.10 Post-traumatic stress disorder, unspecified; Z91.14 Patient's other noncompliance with medication regimen; R45.850 Homicidal ideations